=== PATIENT | female | born 1960 | race American Indian/Alaskan Native ===

== ENCOUNTER 2018-01-28 17:54 | Inpatient (IN) | payer OTHER ==
[2018-01-28] MEDS ORDERED: Rocuronium 10 mg/ml (5 ml) ONE (18:08)
[2018-01-28] MEDS ORDERED: Etomidate 20 mg/10ml Inj IV ONE (18:09)
[2018-01-28 18:31] LABS: VENOUS BLOOD GAS BASE EXCESS -15.7 mmol/L (0.0-2.0); VENOUS BLOOD GAS PO2 80 mm/Hg (30-55); VENOUS BLOOD PH 6.85 (7.32-7.43)
--- NOTE | 2018-01-28 18:44 | ED PDOC ---
Arrival/HPI - General Chief Complaint: Seizure Time Seen by Provider: 01/28/18 18:39 Historian: EMS - Critical Care Critical Care Minutes: 60 minutes - History of Present Illness Narrative History of Present Illness (Text): 01/28/18 18:39 A 57 year old female, whose past medical history includes LA, HTN, HLD, CHF, PE , anemia, perforated appendix, necrotizing fasciitis, lumbar herniated disc, tib /fib fracture of the left leg migraine headaches, seizures, opiate dependence, chronic pain, is brought into the emergency department via EMS s/p seizure. The decision to intubate was made in the emergency department due to patient becoming hypoxic and unable to handle her own secretions. HPI/ ROS limited due to acuity of patients condition. Time/Duration: Prior to Arrival Symptom Onset: Sudden Symptom Course: Unchanged Activities at Onset: Rest, Light Context: Home Past Medical History - Provider Review Nursing Documentation Reviewed: Yes - Infectious Disease Hx of Infectious Diseases: None - Reproductive Menopause: Yes - Cardiac Hx Cardiac Disorders: Yes (LA, DVT) Hx Cardiac Arrhythmia: Yes Hx Congestive Heart Failure: Yes Hx Hypertension: Yes - Pulmonary Hx Respiratory Disorders: Yes (Pulmonary embolism) Hx Pneumonia: Yes - Neurological HX Cerebrovascular Accident: Yes Hx Migraine: Yes - HEENT Hx HEENT Disorder: No - Renal Hx Renal Disorder: No - Endocrine/Metabolic Hx Endocrine Disorders: No - Hematological/Oncological Hx Blood Disorders: Yes (Reaction to blood transfusion) Hx Anemia: Yes - Integumentary Other/Comment: 2 brown skin discolorations to left ankle - Musculoskeletal/Rheumatological Hx Falls: No - Gastrointestinal Hx Gastrointestinal Disorders: Yes (Ruptured appendix, abdominal abcess, ischemic bowl with multiple resections) Hx Ileostomy: Yes Other/Comment: Necrotizing fascites - Genitourinary/Gynecological Hx Genitourinary Disorders: No - Psychiatric Hx Psychophysiologic Disorder: Yes (Opiate dependent) Hx Substance Use: No - Surgical History Hx Appendectomy: Yes Other/Comment: Illeostomy - Anesthesia Hx Anesthesia Reactions: No Hx Malignant Hyperthermia: No Family/Social History - Physician Review Nursing Documentation Reviewed: Yes Family/Social History: No Known Family HX Smoking Status: Never Smoked Hx Alcohol Use: No Hx Substance Use: No Allergies/Home Meds Allergies/Adverse Reactions: Allergies caffeine Adverse Reaction (Mild, Verified 05/17/16 08:45) DIZZINESS pt complains of palpitations after having caffeine Home Medications: Home Meds Medication Instructions Recorded Confirmed Aspirin [Ecotrin] 81 mg PO DAILY 01/28/18 01/28/18 Gemfibrozil 600 mg PO BID 01/28/18 01/28/18 Levetiracetam [Levetiracetam ER] 750 mg PO BID 01/28/18 01/28/18 MEROPENEM 500 MG in NS [Merrem IV 500 mg IV Q6 01/28/18 01/28/18 500 MG/NS 50 ML] Metoprolol Tartrate [Lopressor] 25 mg PO BID 01/28/18 01/28/18 Pantoprazole [Protonix] 40 mg PO DAILY 01/28/18 01/28/18 Rosuvastatin Calcium [Crestor] 20 mg DAILY 01/28/18 01/28/18 amLODIPine [Norvasc] 10 mg PO DAILY 01/28/18 01/28/18 Review of Systems - Physician Review All systems were reviewed & negative as marked: Yes - Review of Systems Systems not reviewed;Unavailable: Acuity of Condition Physical Exam Vital Signs Reviewed: Yes Vital Signs Temp Pulse Resp BP Pulse Ox 01/28/18 18:02 98.1 F 140 H 12 138/102 H 96 Temperature: Afebrile Blood Pressure: Hypertensive Pulse: Tachycardic Respiratory Rate: Normal Pain Distress: None Medical Decision Making ED Course and Treatment: 01/28/18 18:44 Impression: A 57 year old female brought into the emergency department via EMS for seizure. Plan: -- Head CT -- EKG -- Chest X-ray -- Amidate, Ativan, Diprivan, Zemuron, and IV Fluids -- Urinalysis -- Labs -- Reassess and disposition Prior Visits: Notes and results from previous visits were reviewed. Progress Notes: 01/28/18 19:22: Case discussed in detail with Dr. Thomas. 01/28/18 19:25 case discussed with neurology, dr. thomas, recommends keppra 1500mg load then 1000 mg bid PROCEDURE: INTUBATION Performed by the emergency provider Time: 18:19 Consent: Discussion of the risks, benefits, and alternatives to the procedure, along with informed consent was precluded by the urgency of the procedure and the patient condition. Timeout: A timeout to verify the correct patient, procedure, and site was performed. Indication: Airway Protection Pre-oxygenation: [id number] Medications: Etomidate and Rocuronium. See MAR for details. ETT Size: 7.0 Confirmation: Cords directly visualized as tube passed, good bilateral breath sounds, positive CO2 detector color change, tube fogging, adequate chest rise, improving pulse oximetry reading, improved skin color, and absence of gastric sounds. ETT Secured: The cuff was inflated and the tube was secured appropriately at a distance of 20 cm at the lip. Post-Procedure: There were no immediate complications. CXR Confirmation: Yes 01/28/18 22:17 01/28/18 23:21 patient was seen for recurrent seizures with known seizure hx. patient was intubated soon upon arrival. patient was admitted to the ICU under care of Dr. Rizvi, CT head pending and will follow up with the results. - Critical Care Critical Care Minutes: 60 minutes - Lab Interpretations Lab Results: 01/28/18 18:29 01/28/18 18:29 Lab Results 01/28/18 21:05: pCO2 35, pO2 193.0 H, HCO3 20.2 L, ABG pH 7.37, ABG Total CO2 21.3 L, ABG O2 Saturation 100.4 H, ABG O2 Content 17.4, ABG Base Excess -4.4 L, ABG Hemoglobin 12.3, ABG Carboxyhemoglobin 1.4, POC ABG HHb (Measured) -0.4 L, ABG Methemoglobin 1.0, ABG O2 Capacity 17.3, Hgb O2 Saturation 98.0, FiO2 60.0 01/28/18 18:29: Valproic Acid < 10 L 01/28/18 18:29: TSH 3rd Generation 1.88 01/28/18 18:29: PT 11.3, INR 0.99, APTT 48.3 H 01/28/18 18:29: Magnesium 2.1 01/28/18 18:29: Sodium 147, Chloride 105, Potassium 3.8, Carbon Dioxide 19 L, Anion Gap 26 H, BUN 13, Creatinine 0.9, Est GFR ( Amer) > 60, Est GFR ( Non-Af Amer) > 60, Random Glucose 240 H, Calcium 9.8, Total Bilirubin 0.3, AST 57 H, ALT < 6 L, Alkaline Phosphatase 116, Total Protein 8.1, Albumin 4.5, Globulin 3.6, Albumin/Globulin Ratio 1.3 01/28/18 18:29: WBC 14.6 H D, RBC 4.75, Hgb 13.6, Hct 41.9, MCV 88.2, MCH 28.6, MCHC 32.5, RDW 13.8, Plt Count 489 H, MPV 9.3, Gran % 34.0 L, Lymph % (Auto) 56.1 H, Hodgeman % (Auto) 6.6 H, Eos % (Auto) 2.4, Baso % (Auto) 0.9, Gran # 4.96, Lymph # (Auto) 8.2 H, Hodgeman # (Auto) 1.0 H, Eos # (Auto) 0.4, Baso # (Auto) 0.13 01/28/18 18:26: pO2 80 H, VBG pH 6.85 L*, VBG pCO2 116.0 H*, VBG HCO3 20.3 L, VBG Total CO2 23.9, VBG O2 Sat (Calc) 89.7 H, VBG Base Excess -15.7 L, VBG Potassium 3.7, Sodium 144.0, Chloride 105.0, Glucose 243 H, Lactate 9.4 H*, FiO2 21.0, Venous Blood Potassium 3.7 01/28/18 18:25: Urine Color Yellow, Urine Appearance Clear, Urine pH 6.5, Ur Specific [place] 1.025, Urine Protein 100 H, Urine Glucose (UA) Negative, Urine Ketones Negative, Urine Blood Negative, Urine Nitrate Negative, Urine Bilirubin Negative, Urine Urobilinogen 0.2, Ur Leukocyte Esterase Negative, Urine RBC 0 - 2, Urine WBC 5 - 10, Ur Epithelial Cells 3 - 4, Urine Bacteria Mod I have reviewed the lab results: Yes - RAD Interpretation Narrative RAD Interpretations (Text): 01/28/18 19:15: Chest X-ray read and interpreted by me shows no focal infiltrate. No pneumothorax. Tracheal tube is proximally 5 cm above the quique. 01/28/18 1838: sinus tachycardia at 111 bpm, nml qrs, rvh, nonspecific t wave abn Radiology Orders: 01/28/18 18:45 CHEST PORTABLE [RAD] Stat 01/28/18 19:19 HEAD W/O CONTRAST [CT] Stat - EKG Interpretation EKG Interpretation (Text): 01/28/18 19:30 ekg my read: 1838 sinus tach at 111 bpm, nml qrs, rvh, nonspecific t wave abn Interpreted by ED Physician: Yes Type: 12 lead EKG - Medication Orders Current Medication Orders: Sodium Chloride (Sodium Chloride 0.9%) 1,000 mls @ 150 mls/hr IV .Q6H40M SANDY Last Admin: 01/28/18 18:50 Dose: 150 mls/hr eMAR Start Stop Document 01/28/18 18:50 [facility] (Rec: 01/28/18 18:50 [facility] [id number]) Intravenous Solution Start Date 01/28/18 Start Time 18:50 Propofol (Diprivan) 1,000 mg in 100 mls @ 2.068 mls/hr IV .Q24H PRN; Protocol; 5 MCG/KG/MIN PRN Reason: TITRATE PER MD ORDER Levetiracetam (Keppra 500mg Ivpb) 500 mg in 100 mls @ 500 mls/hr IVPB Q12 SANDY Lorazepam (Ativan) 1 mg IVP Q5M PRN; Protocol PRN Reason: Seizure activity Discontinued Medications Etomidate (Amidate) 20 mg IVP STAT STA Stop: 01/28/18 18:46 Last Admin: 01/28/18 18:51 Dose: Propofol (Diprivan) 1,000 mg in 100 mls @ 2.068 mls/hr IV .Q24H PRN; Protocol; 5 MCG/KG/MIN PRN Reason: TITRATE PER MD ORDER Last Admin: 01/28/18 19:51 Dose: 2.068 mls/hr eMAR Start Stop Document 01/28/18 19:51 SS (Rec: 01/28/18 19:54 [id number] Intravenous Solution Start Date 01/28/18 Start Time 19:53 Contreras Agitation Sedation Document 01/28/18 19:51 SS (Rec: 01/28/18 19:54 SS [id number] Contreras Agitation Sedation Scale Contreras Agitation Sedation Scale Score -4 Deep Sedation: No response to voice,but movement or eye opening Levetiracetam 1,500 mg/ Sodium (Chloride) 115 mls @ 460 mls/hr IV ONCE ONE Stop: 01/28/18 19:39 Last Admin: 01/28/18 19:54 Dose: 460 mls/hr eMAR Start Stop Document 01/28/18 19:54 SS (Rec: 01/28/18 19:55 SS [facility] [id number]) Intravenous Solution Start Date 01/28/18 Start Time 19:55 End Date 01/28/18 End time 20:10 Total Infusion Time 15 Lorazepam (Ativan) 2 mg IVP ONCE ONE PRN Reason: Protocol Stop: 01/28/18 18:47 Last Admin: 01/28/18 18:51 Dose: Not Given Non-Admin Reason: Agitation Rocuronium Gaastra (Zemuron) 60 mg IVP ONCE ONE Stop: 01/28/18 18:47 Last Admin: 01/28/18 18:51 Dose: - Scribe Statement The provider has reviewed the documentation as recorded by the Aidaibe Adelaide Kaur Provider Scribe Attestation: All medical record entries made by the Scribe were at my direction and personally dictated by me. I have reviewed the chart and agree that the record accurately reflects my personal performance of the history, physical exam, medical decision making, and the department course for this patient. I have also personally directed, reviewed, and agree with the discharge instructions and disposition. Disposition/Present on Arrival - Present on Arrival Any Indicators Present on Arrival: No History of DVT/PE: No History of Uncontrolled Diabetes: No Urinary Catheter: No History of Decub. Ulcer: No History Surgical Site Infection Following: None - Disposition Have Diagnosis and Disposition been Completed?: Yes Diagnosis: Status epilepticus Disposition: HOSPITALIZED Disposition Time: 23:23 Patient Plan: Admission Condition: FAIR
[2018-01-28 18:45] LABS: ALB/GLOB RATIO 1.3 (1.1-1.8); ALBUMIN 4.5 g/dL (3.0-4.8); AST/SGOT 57 U/L (14-36); BLOOD UREA NITROGEN 13 mg/dL (7-21); CALCIUM 9.8 mg/dL (8.4-10.5); GFR NON-AFRICAN AMERICAN > 60
[2018-01-28] MEDS ORDERED: Etomidate 20 mg/10ml Inj IVP STA (18:45)
[2018-01-28] MEDS ORDERED: Rocuronium 10 mg/ml (5 ml) IVP ONE (18:46)
[2018-01-28] MEDS ORDERED: Propofol 10 mg/ml 1,000 MG/100 ML VIAL IV PRN ×2 (18:48→20:31)
[2018-01-28 18:50] LABS: ALT/SGPT < 6 U/L (7-56)
[2018-01-28] MEDS: Sodium Chloride 0.9% 1,000 ML IV SCH (18:50)
[2018-01-28 19:00] LABS: BASO # 0.13 K/mm3 (0.0-2.0); BASO % 0.9 % (0.0-3.0); EOS # 0.4 (0.0-0.7); EOS % 2.4 % (1.5-5.0); GRAN # 4.96 (1.4-6.5); HEMOGLOBIN 13.6 g/dL (12.0-16.0); LYMPH # 8.2 (1.2-3.4); LYMPH % 56.1 % (22.0-35.0); MEAN CELL VOLUME 88.2 fl (80.0-105.0); MEAN CORPUSCULAR HEMOGLOBIN 28.6 pg (25.0-35.0); MEAN CORPUSCULAR HGB CONC 32.5 g/dl (31.0-37.0); MEAN PLATELET VOLUME 9.3 fl (7.0-11.0); MONO % 6.6 % (1.0-6.0); RBC 4.75 10^6/uL (3.5-6.1); RED CELL DISTRIBUTION WIDTH 13.8 % (11.5-14.5); WHITE BLOOD COUNT 14.6 10^3/ul (4.5-11.0)
[2018-01-28] MEDS ORDERED: levETIRAcetam 1,000 MG in Sodium Chloride 0.9% 100 ML IV ONE (19:20)
[2018-01-28 19:23] LABS: PH,URINE 6.5 (4.7-8.0); URINE BILIRUBIN NEGATIVE (NEGATIVE); URINE BLOOD NEGATIVE (NEGATIVE); URINE GLUCOSE (UA) NEGATIVE (NEGATIVE); URINE LEUKOCYTE ESTERASE NEGATIVE Leu/uL (NEGATIVE); URINE PROTEIN 100 mg/dL (<30 mg/dL); URINE UROBILINOGEN 0.2 E.U./dL (<1 E.U./dL)
[2018-01-28 19:24] LABS: URINE APPEARANCE CLEAR (CLEAR); URINE COLOR YELLOW (YELLOW)
[2018-01-28 19:24] LABS: INR 0.99; PARTIAL THROMBOPLASTIN TIME 48.3 Seconds (25.1-36.5); PROTHROMBIN TIME 11.3 SECONDS (9.4-12.5)
[2018-01-28] MEDS ORDERED: levETIRAcetam 1,500 MG in Sodium Chloride 0.9% 100 ML IV ONE (19:25)
[2018-01-28 19:37] LABS: URINE BACTERIA MOD (NEG); URINE RBC 0 - 2 /hpf (0-2)
[2018-01-28] MEDS: Propofol 10 mg/ml 1,000 MG/100 ML VIAL IV PRN (19:51)
[2018-01-28 21:13] LABS: ARTERIAL BLOOD GAS HCO3 20.2 mmol/L (21-28); ARTERIAL BLOOD GAS HEMOGLOBIN 12.3 g/dL (11.7-17.4); ARTERIAL BLOOD GAS O2 CAPACITY 17.3 mL/dl (16-24); ARTERIAL BLOOD GAS O2 CONTENT 17.4 ML/dl (15-23); ARTERIAL BLOOD GAS O2 SAT 100.4 % (95-98); ARTERIAL BLOOD GAS PCO2 35 mm/Hg (35-45); ARTERIAL BLOOD GAS PH 7.37 (7.35-7.45); ARTERIAL BLOOD GAS TCO2 21.3 mmol.L (22-28)
[2018-01-28 22:50] LABS: VENOUS BLOOD GAS BASE EXCESS -0.7 mmol/L (0.0-2.0); VENOUS BLOOD GAS PO2 44 mm/Hg (30-55); VENOUS BLOOD PH 7.33 (7.32-7.43)
--- NOTE | 2018-01-28 23:07 | CP.PCM.HP ---
<Berhane Garrison - Last Filed: 01/29/18 00:00> History of Present Illness - History of Present Illness History of Present Illness: CC: Status epilepticus Pt is a 57 yo F with pmhx of SC, HTN, HLD, CHF, PE, anemia, seizures, chronic pain, is brought into the emergency department via EMS s/p seizure. At the ED she was given multiple doses of ativan and keppra, but then she began to become hypoxic so the decision was made to intubate the pt to protect her airway. Further pt hx was gathered by , who states that she has never had seizures before. He states that she recently had a hemorrhagic stroke in July of 2017 and was then taken [place] [facility] [place] a left temporal and parietal crainotomy was performed to relieve the swelling and pressure accumulating from the bleed. He states that this afternoon she was eating when all of a sudden she began to have seizures. She fell and was noted to have some foaming in the mouth that seemed to be mixed with blood, but no bladder or bowel incontinence was noted. He then called the ambulance which transported her to [facility] ED. Pt was sedated and intubated at the time of exam so 12 point ROS could not be done. PMHx: SC, HTN, HLD, CHF, PE, anemia, perforated appendix, necrotizing fasciitis , lumbar herniated disc, tib/fib fracture of the left leg migraine headaches, seizures, opiate dependence, chronic pain PSHx: Appendectomy, colostomy, crainotomy in 2018 Medications: Amlodipine 10 QD, Metoprolol 25mg BID, Gemfibrozil 600 BID, ASA 81 QD, protonix 40 QD, Levetiracetam 750 BID, Crestor 20 QD Allergies: Caffeine - Dizziness Family Hx: Unable to obtain due to pt status Present on Admission - Present on Admission Any Indicators Present on Admission: Yes History of DVT/PE: Yes Review of Systems - Review of Systems Systems not reviewed;Unavailable: Intubated Past Patient History - Infectious Disease Hx of Infectious Diseases: None - Past Medical History & Family History Past Medical History?: Yes - Past Social History Smoking Status: Never Smoked - CARDIAC Hx Cardiac Disorders: Yes (SC, DVT) Hx Cardia Arrhythmia: Yes Hx Congestive Heart Failure: Yes Hx Hypertension: Yes - PULMONARY Hx Respiratory Disorders: Yes (Pulmonary embolism) Hx Pneumonia: Yes - NEUROLOGICAL HX Cerebrovascular Accident: Yes Hx Migraine: Yes - HEENT Hx HEENT Problems: No - RENAL Hx Chronic Kidney Disease: No - ENDOCRINE/METABOLIC Hx Endocrine Disorders: No - HEMATOLOGICAL/ONCOLOGICAL Hx Blood Disorders: Yes (Reaction to blood transfusion) Hx Anemia: Yes - INTEGUMENTARY Other/Comment: 2 brown skin discolorations to left ankle - MUSCULOSKELETAL/RHEUMATOLOGICAL Hx Falls: No - GASTROINTESTINAL Hx Gastrointestinal Disorders: Yes (Ruptured appendix, abdominal abcess, ischemic bowl with multiple resections) Hx Ileostomy: Yes Other/Comment: Necrotizing fascites - GENITOURINARY/GYNECOLOGICAL Hx Genitourinary Disorders: No - PSYCHIATRIC Hx Psychophysiologic Disorder: Yes (Opiate dependent) Hx Substance Use: No - SURGICAL HISTORY Hx Appendectomy: Yes Other/Comment: Illeostomy - ANESTHESIA Hx Anesthesia Reactions: No Hx Malignant Hyperthermia: No Meds Allergies/Adverse Reactions: Allergies Allergy/AdvReac Type Severity Reaction Status Date / Time caffeine AdvReac Mild DIZZINESS Verified 05/17/16 08:45 Physical Exam - Constitutional Additional comments: Sedated and intubated, well developed, well nourished - Head Exam Additional comments: Left sided temporal and parietal crainiotomy noted to have soft tissue underneath, had a well healed scar from incision - Eye Exam Eye Exam: EOMI, PERRL. absent: Scleral icterus - ENT Exam Additional comments: Missing front teeth, oral mucosa was moist, no bleeding or sign of trauma to tongue - Respiratory Exam Respiratory Exam: Clear to Auscultation Bilateral. absent: Rales, Rhonchi, Wheezes, Stridor Additional comments: mechanical breath sounds - Cardiovascular Exam Cardiovascular Exam: REGULAR RHYTHM, +S1, +S2. absent: Diastolic murmur, Gallop , Rubs - GI/Abdominal Exam GI & Abdominal Exam: Soft. absent: Distended, Firm Additional comments: multiple scars from extensive GI surgical hx - Extremities Exam Extremities exam: Negative for: pedal edema - Neurological Exam Additional comments: Sedated, right sided weakness compared to left - Skin Skin Exam: Dry, Intact, Normal Color, Warm Additional comments: no areas of ecchymosis or rash Results - Vital Signs Recent Vital Signs: Last Vital Signs Temp 98.1 F 01/28/18 18:02 Pulse 140 H 01/28/18 18:02 Resp 12 01/28/18 18:02 BP 138/102 H 01/28/18 18:02 Pulse Ox 96 01/28/18 18:02 - Labs Result Diagrams: 01/28/18 18:29 01/28/18 18:29 Labs: Laboratory Results - last 24 hr 01/28/18 22:46 pO2 44 VBG pH 7.33 VBG pCO2 49.0 VBG HCO3 25.8 VBG Total CO2 27.3 VBG O2 Sat (Calc) 83.9 H VBG Base Excess -0.7 L VBG Potassium 3.0 L Sodium 141.0 Chloride 106.0 Glucose 99 Lactate 0.9 FiO2 21.0 Venous Blood Potassium 3.0 L Assessment & Plan - Assessment and Plan (Free Text) Assessment: Pt is a 57 yo F with pmhx of SC, HTN, HLD, CHF, PE, anemia, seizures, chronic pain, is brought into the emergency department via EMS s/p seizure, is now intubated due to status epilepticus. Plan: 1) Status epilepticus: - Pt was given Keppra and Ativan multiple times in ED but pt became hypoxic and was unable to protect her own airway, so the decision was made to intubate the pt to protect airway - Lactate 9.4 on admission, on repeat was noted to be 0.9 - f/u head CT - Continue Keppra - Ativan PRN seizure ppx - EEG - Neuro checks - Seizure precautions - Neurology consulted - f/u AM CXR - [place] [facility] [place] in [place], requesting possible transfer [place] [facility] 2) HTN: - Will continue home norvasc once pt regains ability to take retake PO - Continue to monitor for HTN 3) HLD: - Will continue home Crestor once pt regains ability to take PO 4) Hx of Anemia - Monitor H&H - Stable as of admission GI/DVT PPX: - Protonix 40 - SCDs Case discussed with Dr. Dmitri Garrison PGY1 - Date & Time Date: 01/29/18 Time: 00:13 <Charles Rizvi P - Last Filed: 01/29/18 02:24> Results - Vital Signs Recent Vital Signs: Last Vital Signs Temp 98.1 F 01/28/18 18:02 Pulse 140 H 01/28/18 18:02 Resp 12 01/28/18 18:02 BP 138/102 H 01/28/18 18:02 Pulse Ox 96 01/28/18 18:02 - Labs Result Diagrams: 01/28/18 18:29 01/28/18 18:29 Labs: Laboratory Results - last 24 hr 01/28/18 22:46 pO2 44 VBG pH 7.33 VBG pCO2 49.0 VBG HCO3 25.8 VBG Total CO2 27.3 VBG O2 Sat (Calc) 83.9 H VBG Base Excess -0.7 L VBG Potassium 3.0 L Sodium 141.0 Chloride 106.0 Glucose 99 Lactate 0.9 FiO2 21.0 Venous Blood Potassium 3.0 L Attending/Attestation - Attestation I have personally seen and examined this patient.: Yes I have fully participated in the care of the patient.: Yes I have reviewed all pertinent clinical information: Yes Notes (Text): Pt is a 57 yo F with pmhx of SC, HTN, HLD, CHF, PE, anemia, seizures, chronic pain, is brought into the emergency department via EMS s/p seizure, is now intubated due to status epilepticus. Craniotomy in jul this year for hemorrhagic CVA. At time of assessment patient had received ativan 2mg, Keppra 1500mg loading dose, etomidate and paralytic for intubation and was on diprivan 10mcg/kg/min, patient was having what appeared mobility which was purposeful in the right leg and right arm, b/l foot drop, both pupils reactive, atrophied right arm and right leg, multiple surgical scars on in the abdomen. Slight hyperdensity likely from scar vs any bleeding noticed in the surgical area on CT head. Plan Seizure status clinically resolved as evident from above clinical exam Intubated for airway protection severe CO2 retention likely form splinting of the chest with status, resultant resp and metabolic acidosis worsened by lactic acidosis, improved to normal on vent support. SCD for dvt prophylaxis due to CT head findings GI prophylaxis Keppra loading dose then IV, seizure and aspiration precautions, will discuss patient's baseline activity with the when available in the hospital. See orders for detail. 01/29/18 02:16
[2018-01-29 03:52] VITALS: BMI 24.3
[2018-01-29 07:09] LABS: BASO # 0.03 K/mm3 (0.0-2.0); BASO % 0.3 % (0.0-3.0); EOS # 0.1 (0.0-0.7); GRAN # 5.5 (1.4-6.5); GRAN % 59.5 % (50.0-68.0); HEMOGLOBIN 12.7 g/dL (12.0-16.0); LYMPH # 2.4 (1.2-3.4); LYMPH % 25.8 % (22.0-35.0); MEAN CELL VOLUME 83.8 fl (80.0-105.0); MEAN CORPUSCULAR HEMOGLOBIN 28.2 pg (25.0-35.0); MEAN CORPUSCULAR HGB CONC 33.6 g/dl (31.0-37.0); MEAN PLATELET VOLUME 8.7 fl (7.0-11.0); MONO # 1.2 (0.1-0.6); MONO % 13.4 % (1.0-6.0); RBC 4.51 10^6/uL (3.5-6.1); RED CELL DISTRIBUTION WIDTH 13.9 % (11.5-14.5); WHITE BLOOD COUNT 9.3 10^3/ul (4.5-11.0)
[2018-01-29 07:26] LABS: ALB/GLOB RATIO 1.2 (1.1-1.8); ALBUMIN 3.8 g/dL (3.0-4.8); ALT/SGPT 26 U/L (7-56); AST/SGOT 35 U/L (14-36); BLOOD UREA NITROGEN 12 mg/dL (7-21); CALCIUM 9.2 mg/dL (8.4-10.5); GFR NON-AFRICAN AMERICAN > 60
--- NOTE | 2018-01-29 08:01 | RAD ---
Date of service: 01/29/2018 HISTORY: intubated COMPARISON: Portable chest 01/28/2018. FINDINGS: Endotracheal tube terminates 5.0 cm above the quique with left PICC unchanged in position. LUNGS: No active pulmonary disease. PLEURA: No significant pleural effusion identified, no pneumothorax apparent. CARDIOVASCULAR: Normal. OSSEOUS STRUCTURES: No significant abnormalities. VISUALIZED UPPER ABDOMEN: Normal. OTHER FINDINGS: None. IMPRESSION: No interval acute cardiopulmonary disease.
--- NOTE | 2018-01-29 08:31 | CT ---
Date of service: 01/28/2018 PROCEDURE: CT HEAD WITHOUT CONTRAST. HISTORY: status epilepticus COMPARISON: None available. TECHNIQUE: Axial computed tomography images were obtained through the head/brain without intravenous contrast. Radiation dose: Total exam DLP = 924 mGy-cm. This CT exam was performed using one or more of the following dose reduction techniques: Automated exposure control, adjustment of the mA and/or kV according to patient size, and/or use of iterative reconstruction technique. FINDINGS: HEMORRHAGE: No intracranial hemorrhage. BRAIN: No mass effect or edema. There has been an extensive left-sided craniotomy with removal of bone. There is encephalomalacia in the left basal ganglia and left lateral temporal lobe. There is dilatation of the left lateral ventricles. No acute findings VENTRICLES: Unremarkable. No hydrocephalus. CALVARIUM: Unremarkable. PARANASAL SINUSES: Unremarkable as visualized. No significant inflammatory changes. MASTOID AIR CELLS: Unremarkable as visualized. No inflammatory changes. OTHER FINDINGS: None. IMPRESSION: There has been an extensive left-sided craniotomy with removal of bone. There is encephalomalacia in the left basal ganglia and left lateral temporal lobe. There is dilatation of the left lateral ventricles. No acute findings
[2018-01-29] MEDS: Propofol 10 mg/ml 1,000 MG/100 ML VIAL IV PRN (08:39)
[2018-01-29] MEDS: Sodium Chloride 0.9% 1,000 ML IV SCH ×3 (08:41→21:44)
--- NOTE | 2018-01-29 08:53 | CP.PCM.CON ---
<Brook Garcia - Last Filed: 01/29/18 14:28> History of Present Illness - History of Present Illness History of Present Illness: PGY-1 Brook Garcia D.O. Neurology consult note for Dr. Thomas's service: Family is not present at the time of evaluation and patient is sedated, thus, HPI and history is obtained from medical records. 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 reports this is a new onset seizure; however, patient is on Keppra 750 mg PO bid at home, which is a therapeutic dose. Patient 's reported to ED that patient was eating and then started convulsing and foaming at the mouth. He denies bowel or bladder incontinence or tongue trauma. The patient was given Ativan and Keppra in the ED without resolution of seizure. She was unable to protect her airway, and, thus, she was sedated and intubated. Patient is currently in the ICU on a propofol drip and intubated. She is able to open her eyes and raise her left arm on command. She is responsive to painful stimuli. Patient was re-examined in the afternoon after she was successfully extubated. She is sitting up in bed, alert. She is able to move her LUE on command. She is tracking with her eyes. She does not speak. PMH: Hemorrhagic CVA 07/2017- s/p L temporal and parietal [place] [facility] [place] H/o PE, DVT CHF CA HTN HLD H/o ischemic bowel with several abdominal surgeries and ileostomy Recurrent UTIs Chronic pain Opioid dependence Migraines H/o blood transfusion rxn Meds: Norvasc 10 mg PO daily Metoprolol 25 mg PO BID ASA 81 mg PO daily Keppra 750 mg PO BID Crestor 20 mg PO daily Gemfibrozil 600 mg PO BID All: ?caffeine- dizziness FH: unknown SH: denies tobacco use rest unknown PMD: unknown Review of Systems - Review of Systems Systems not reviewed;Unavailable: Altered Mental Status (aphasic), Intubated Past Patient History - Infectious Disease Hx of Infectious Diseases: None - Tetanus Immunizations Tetanus Immunization: Unknown - Past Medical History & Family History Past Medical History?: Yes Pertinent Family History: unknown - Past Social History Smoking Status: Never Smoked Chewing Tobacco Use: No Cigar Use: No - CARDIAC Hx Cardiac Disorders: Yes Hx Cardia Arrhythmia: Yes Hx Congestive Heart Failure: Yes Hx Hypertension: Yes - PULMONARY Hx Respiratory Disorders: Yes (Pulmonary embolism) Hx Chronic Obstructive Pulmonary Disease (COPD): Yes Hx Pneumonia: Yes Other/Comment: IS INTUBATED - NEUROLOGICAL HX Cerebrovascular Accident: Yes Hx Migraine: Yes Hx Seizures: Yes - HEENT Hx HEENT Problems: No Hx Epistaxis: Yes - RENAL Hx Chronic Kidney Disease: No - ENDOCRINE/METABOLIC Hx Endocrine Disorders: No - HEMATOLOGICAL/ONCOLOGICAL Hx Blood Disorders: No Hx Anemia: Yes - INTEGUMENTARY Hx Dermatological Problems: No Other/Comment: 2 brown skin discolorations to left ankle - MUSCULOSKELETAL/RHEUMATOLOGICAL Hx Musculoskeletal Disorders: No Hx Falls: No - GASTROINTESTINAL Hx Gastrointestinal Disorders: No Hx Ileostomy: Yes Other/Comment: Necrotizing fascites - GENITOURINARY/GYNECOLOGICAL Hx Genitourinary Disorders: No Hx Urinary Tract Infection: No - PSYCHIATRIC Hx Psychophysiologic Disorder: Yes (Opiate dependent) Hx Substance Use: No - SURGICAL HISTORY Hx Appendectomy: Yes Other/Comment: Illeostomy - ANESTHESIA Hx Anesthesia Reactions: No Hx Malignant Hyperthermia: No Meds Allergies/Adverse Reactions: Allergies Allergy/AdvReac Type Severity Reaction Status Date / Time caffeine AdvReac Mild DIZZINESS Verified 05/17/16 08:45 - Medications Medications: Current Medications Sodium Chloride (Sodium Chloride 0.9%) 1,000 mls @ 150 mls/hr IV .Q6H40M [facility] Last Admin: 01/29/18 08:41 Dose: 150 mls/hr Propofol (Diprivan) 1,000 mg in 100 mls @ 5.552 mls/hr IV .Q18H1M PRN; Protocol ; 15 MCG/KG/MIN PRN Reason: TITRATE PER MD ORDER Last Admin: 01/29/18 08:39 Dose: 15 mcg/kg/min, 5.552 mls/hr Levetiracetam (Keppra 500mg Ivpb) 500 mg in 100 mls @ 750 mls/hr IVPB Q12 SANDY Lorazepam (Ativan) 1 mg IVP Q5M PRN; Protocol PRN Reason: Seizure activity Pantoprazole Sodium (Protonix Inj) 40 mg IVP DAILY SANDY Physical Exam - Constitutional Appears: No Acute Distress - Head Exam Additional comments: soft tissue L temporal-parietal area where skull removed, no open lesions - Eye Exam Eye Exam: EOMI, Normal appearance, PERRL. absent: Scleral icterus - ENT Exam ENT Exam: Mucous Membranes Moist Additional comments: endotracheal tube in place in AM normal inspection in PM - Neck Exam Neck exam: Positive for: Normal Inspection - Respiratory Exam Respiratory Exam: Clear to Auscultation Bilateral, NORMAL BREATHING PATTERN - Cardiovascular Exam Cardiovascular Exam: REGULAR RHYTHM, +S1, +S2 - GI/Abdominal Exam GI & Abdominal Exam: Soft - Rectal Exam Rectal Exam: Deferred - Extremities Exam Extremities exam: Positive for: normal capillary refill, normal inspection, pedal pulses present. Negative for: pedal edema - Neurological Exam Neurological exam: Reflexes Normal Additional comments: patient sedated on propofol drip opens eye on command and to painful stimuli raises RUE on command does not spontaneously move LUE or b/l LEs - Psychiatric Exam Additional comments: does not appear to be agitated - Skin Skin Exam: Dry, Intact, Normal Color, Warm Results - Vital Signs Recent Vital Signs: Last Vital Signs Temp 98.9 F 01/29/18 02:25 Pulse 88 01/29/18 08:30 Resp 18 01/29/18 07:05 BP 111/80 01/29/18 08:30 Pulse Ox 100 01/29/18 08:30 - Labs Result Diagrams: 01/29/18 06:00 01/29/18 06:00 Labs: Laboratory Results - last 24 hr 01/28/18 01/29/18 01/29/18 22:46 06:00 06:00 WBC 9.3 D RBC 4.51 Hgb 12.7 Hct 37.8 MCV 83.8 D MCH 28.2 MCHC 33.6 RDW 13.9 Plt Count 386 MPV 8.7 Gran % 59.5 Lymph % (Auto) 25.8 Valley % (Auto) 13.4 H Eos % (Auto) 1.0 L Baso % (Auto) 0.3 Gran # 5.50 Lymph # (Auto) 2.4 Valley # (Auto) 1.2 H Eos # (Auto) 0.1 Baso # (Auto) 0.03 pO2 44 VBG pH 7.33 VBG pCO2 49.0 VBG HCO3 25.8 VBG Total CO2 27.3 VBG O2 Sat (Calc) 83.9 H VBG Base Excess -0.7 L VBG Potassium 3.0 L Sodium 141.0 142 Chloride 106.0 106 Glucose 99 Lactate 0.9 FiO2 21.0 Potassium 3.4 L Carbon Dioxide 23 Anion Gap 17 BUN 12 Creatinine 0.7 Est GFR ( Amer) > 60 Est GFR (Non-Af Amer) > 60 Random Glucose 97 Calcium 9.2 Phosphorus 3.0 Magnesium 1.8 Total Bilirubin 0.4 AST 35 ALT 26 Alkaline Phosphatase 108 Total Protein 6.9 Albumin 3.8 Globulin 3.1 Albumin/Globulin Ratio 1.2 Venous Blood Potassium 3.0 L - EKG Data EKG Interpreted by: ER Physician EKG shows normal: Sinus rhythm Rate: Tachycardia - Impressions Impression: sinus tachycardia (HR 111) Assessment & Plan - Assessment and Plan (Free Text) Assessment: Patient is a 57 yo female with an extensive past medical history who presented with status epilepticus. Ativan and Keppra failed to stop seizure before patient had to be intubated to protect her airway. Patient is currently being managed in the ICU. She was successful extubated and off propofol <24 hrs later. She is on standing Keppra and Ativan as needed. Of note, patient had a craniotomy after a hemorrhagic CVA in Jul 2017. Plan: Status epilepticus, resolved- pt on Keppra at home - CT head: no acute findings - LA 9.4->0.9; WBC 14.6->9.3 - Seizure precautions - Increase Keppra to 1000 mg PO BID - Keppra level pending - Continue Ativan prn - Replete K, Mg as needed - f/u EEG- final report not necessary to downgrade pt status or pertinent to management at this time - PT/OT/ST H/o hemorrhagic CVA s/p L temporal-parietal craniotomy - CT head: There has been an extensive left-sided craniotomy with removal of bone. There is encephalomalacia in the left basal ganglia and left lateral temporal lobe. There is dilatation of the left lateral ventricles. - Utilize helmet when pt at risk of compressing/injuring head - Primary team is obtaining records [place] [facility] [place]N, chronic- SBP 90s-120s - Management per primary team - Patient's home meds held Case discussed with attending, Dr. Thomas. <Dayne Thomas - Last Filed: 01/29/18 17:23> Meds - Medications Medications: Current Medications Sodium Chloride (Sodium Chloride 0.9%) 1,000 mls @ 150 mls/hr IV .Q6H40M [facility] Last Admin: 01/29/18 16:02 Dose: 150 mls/hr Propofol (Diprivan) 1,000 mg in 100 mls @ 5.552 mls/hr IV .Q18H1M PRN; Protocol ; 15 MCG/KG/MIN PRN Reason: TITRATE PER MD ORDER Last Titration: 01/29/18 11:07 Dose: 0 mcg/kg/min, 0 mls/hr Levetiracetam 1,000 mg/ Sodium (Chloride) 110 mls @ 460 mls/hr IV Q12 SANDY Lorazepam (Ativan) 1 mg IVP Q5M PRN; Protocol PRN Reason: Seizure activity Pantoprazole Sodium (Protonix Inj) [address] [facility] Last Admin: 01/29/18 09:42 Dose: 40 mg Results - Vital Signs Recent Vital Signs: Last Vital Signs Temp 98.9 F 01/29/18 02:25 Pulse 108 H 01/29/18 17:09 Resp 14 01/29/18 17:09 BP 166/103 H 01/29/18 17:10 Pulse Ox 100 01/29/18 17:09 - Labs Result Diagrams: 01/29/18 06:00 01/29/18 06:00 Labs: Laboratory Results - last 24 hr 01/28/18 01/29/18 01/29/18 22:46 06:00 06:00 WBC 9.3 D RBC 4.51 Hgb 12.7 Hct 37.8 MCV 83.8 D MCH 28.2 MCHC 33.6 RDW 13.9 Plt Count 386 MPV 8.7 Gran % 59.5 Lymph % (Auto) 25.8 Valley % (Auto) 13.4 H Eos % (Auto) 1.0 L Baso % (Auto) 0.3 Gran # 5.50 Lymph # (Auto) 2.4 [place] # (Auto) 1.2 H Eos # (Auto) 0.1 Baso # (Auto) 0.03 pO2 44 VBG pH 7.33 VBG pCO2 49.0 VBG HCO3 25.8 VBG Total CO2 27.3 VBG O2 Sat (Calc) 83.9 H VBG Base Excess -0.7 L VBG Potassium 3.0 L Sodium 141.0 142 Chloride 106.0 106 Glucose 99 Lactate 0.9 FiO2 21.0 Potassium 3.4 L Carbon Dioxide 23 Anion Gap 17 BUN 12 Creatinine 0.7 Est GFR ( Amer) > 60 Est GFR (Non-Af Amer) > 60 Random Glucose 97 Calcium 9.2 Phosphorus 3.0 Magnesium 1.8 Total Bilirubin 0.4 AST 35 ALT 26 Alkaline Phosphatase 108 Total Protein 6.9 Albumin 3.8 Globulin 3.1 Albumin/Globulin Ratio 1.2 Venous Blood Potassium 3.0 L Attending/Attestation - Attestation I have personally seen and examined this patient.: Yes I have fully participated in the care of the patient.: Yes I have reviewed all pertinent clinical information: Yes Notes (Text): 01/29/18 17:22 I saw and examined Mrs. Myrick in the ICU along with the resident and noted that she is aphasic, has right side chronic hemiplegia with contractures. She was awake, alert, and followed simple commands. She was not having any seizures. I agree that the patient should be maintained on Keppra 1000 mg Q12.
--- NOTE | 2018-01-29 09:06 | CARD ---
APPROVED REPORT Date of service: 01/28/2018 EKG Measurement Heart [id number] <Conclusion> Sinus tachycardia RAD Right ventricular hypertrophy Nonspecific ST and T wave abnormality No change except the rate is faster
--- NOTE | 2018-01-29 09:32 | RAD ---
Date of service: 01/28/2018 HISTORY: tube placement COMPARISON: 05/16/2016 FINDINGS: LUNGS: No active pulmonary disease. PLEURA: No significant pleural effusion identified, no pneumothorax apparent. CARDIOVASCULAR: Normal. OSSEOUS STRUCTURES: No significant abnormalities. VISUALIZED UPPER ABDOMEN: Normal. OTHER FINDINGS: Left-sided PICC line terminates in the SVC IMPRESSION: The endotracheal tube is in satisfactory position.
[2018-01-29] MEDS ORDERED: levETIRAcetam 500mg IVPB 500 MG/100 ML BAG IVPB SCH ×2 (10:00)
[2018-01-29] MEDS ORDERED: levETIRAcetam 1,000 MG in Sodium Chloride 0.9% 100 ML IV SCH (10:30)
[2018-01-29] MEDS ORDERED: levETIRAcetam 500 MG in Sodium Chloride 0.9% 100 ML IV ONE (12:07)
[2018-01-29] MEDS ORDERED: levETIRAcetam 500mg IVPB 500 MG/100 ML BAG IVPB ONE (12:30)
--- NOTE | 2018-01-29 13:33 | CP.CCUPN ---
<Gordon Park - Last Filed: 01/29/18 15:14> CCU Subjective - Physician Review Subjective (Free Text): 01/29/18 12:48 Patient was seen and examined at bedside this AM in ICU. No acute events overnight. Patient sedated and intubated on evaluation 12 system ROS unobtainable at this time. Critical Care Time Spent (in minutes): 60 CCU Objective - Vital Signs / Intake & Output Intake and Output (Last 8hrs): Intake & Output 01/28/18 01/29/18 01/29/18 22:59 06:59 14:59 Intake Total 78 95 Output Total 1000 Balance -922 95 Weight 146 lb Intake: IV 78 95 Left Antecubital 0 Left Upper arm 0 Right Hand 50 Oral 0 Output: Urine 1000 Urethral (Peterson) 1000 Other: Voiding Method Indwelling Catheter - Physical Exam Physical Exam Limitations: Positive for: Other (sedated) Head: Positive for: Other (L skull soft to palpation; no acute trauma noted) Pupils: Positive for: Pinpoint Conjunctiva: Positive for: Normal. Negative for: Icteric Mouth: Positive for: Other (intubated) Respiratory/Chest: Positive for: Clear to Auscultation, Good Air Exchange. Negative for: Respiratory Distress Cardiovascular: Positive for: Regular Rate and Rhythm, Normal S1, S2. Negative for: Murmurs Abdomen: Positive for: Normal Bowel Sounds. Negative for: Tenderness, Distention, Peritoneal Signs Upper Extremity: Positive for: Normal Inspection, NORMAL PULSES Lower Extremity: Positive for: Normal Inspection, NORMAL PULSES Neurological: Positive for: Other (RLE Babinski equivocal; LLE Babinski intact - Normal ) Skin: Positive for: Warm, Dry Psychiatric: Positive for: Other (Sedated) - Medications Active Medications: Active Medications Generic Name Dose Route Start Last Admin Trade Name Freq PRN Reason Stop Dose Admin Sodium Chloride 1,000 mls @ 150 mls/hr 01/28/18 19:00 01/29/18 08:41 Sodium Chloride 0.9% IV 150 mls/hr .Q6H40M SANDY Administration Propofol 1,000 mg in 100 mls @ 5.552 mls/hr 01/29/18 00:59 01/29/18 11:07 Diprivan IV 0 mcg/kg/min .Q18H1M PRN 0 mls/hr TITRATE PER MD ORDER Titration Protocol 15 MCG/KG/MIN Potassium Chloride 10 meq in 100 mls @ 50 mls/hr 01/29/18 09:15 01/29/18 09: 43 Potassium Chloride 10 Meq/100 Ml IVPB 01/29/18 13:14 50 mls/hr Q2H SANDY Administration Levetiracetam 1,000 mg/ Sodium 110 mls @ 460 mls/hr 01/29/18 22:00 Chloride IV Q12 SANDY Lorazepam 1 mg 01/29/18 00:38 Ativan IVP Q5M PRN Seizure activity Protocol Pantoprazole Sodium 40 mg 01/29/18 10:00 01/29/18 09:42 Protonix Inj IVP 40 mg DAILY SANDY Administration - Patient Studies Lab Studies: Lab Studies 01/29/18 01/29/18 01/28/18 Range/Units 06:00 06:00 22:46 WBC 9.3 D (4.5-11.0) 10^3/ul RBC 4.51 (3.5-6.1) 10^6/uL Hgb 12.7 (12.0-16.0) g/dL Hct 37.8 (36.0-48.0) % MCV 83.8 D (80.0-105.0) fl MCH 28.2 (25.0-35.0) pg MCHC 33.6 (31.0-37.0) g/dl RDW 13.9 (11.5-14.5) % Plt Count 386 (120.0-450.0) 10^3/uL MPV 8.7 (7.0-11.0) fl Gran % 59.5 (50.0-68.0) % Lymph % (Auto) 25.8 (22.0-35.0) % [place] % (Auto) 13.4 H (1.0-6.0) % Eos % (Auto) 1.0 L (1.5-5.0) % Baso % (Auto) 0.3 (0.0-3.0) % Gran # 5.50 (1.4-6.5) Lymph # (Auto) 2.4 (1.2-3.4) [place] # (Auto) 1.2 H (0.1-0.6) Eos # (Auto) 0.1 (0.0-0.7) Baso # (Auto) 0.03 (0.0-2.0) K/mm3 pO2 44 (30-55) mm/Hg VBG pH 7.33 (7.32-7.43) VBG pCO2 49.0 (40-60) VBG HCO3 25.8 (21-28) mmol/l VBG Total CO2 27.3 (22-28) mmol.L VBG O2 Sat (Calc) 83.9 H (40-65) % VBG Base Excess -0.7 L (0.0-2.0) mmol/L VBG Potassium 3.0 L (3.6-5.2) mmol/L Sodium 142 141.0 (132-148) mmol/L Chloride 106 106.0 (98-107) mmol/L Glucose 99 (65-105) mg/dl Lactate 0.9 (0.7-2.1) mmol/L FiO2 21.0 % Potassium 3.4 L (3.6-5.0) mmol/L Carbon Dioxide 23 (21-33) mmol/L Anion Gap 17 (10-20) BUN 12 (7-21) mg/dL Creatinine 0.7 (0.7-1.2) mg/dl Est GFR ( Amer) > 60 Est GFR (Non-Af Amer) > 60 Random Glucose 97 (70-110) mg/dL Calcium 9.2 (8.4-10.5) mg/dL Phosphorus 3.0 (2.5-4.5) mg/dL Magnesium 1.8 (1.7-2.2) mg/dL Total Bilirubin 0.4 (0.2-1.3) mg/dL AST 35 (14-36) U/L ALT 26 (7-56) U/L Alkaline Phosphatase 108 (38-126) U/L Total Protein 6.9 (5.8-8.3) g/dL Albumin 3.8 (3.0-4.8) g/dL Globulin 3.1 gm/dL Albumin/Globulin Ratio 1.2 (1.1-1.8) Venous Blood Potassium 3.0 L (3.6-5.2) mmol/L Laboratory Results - last 24 hr 01/28/18 01/29/18 01/29/18 22:46 06:00 06:00 WBC 9.3 D RBC 4.51 Hgb 12.7 Hct 37.8 MCV 83.8 D MCH 28.2 MCHC 33.6 RDW 13.9 Plt Count 386 MPV 8.7 Gran % 59.5 Lymph % (Auto) 25.8 [place] % (Auto) 13.4 H Eos % (Auto) 1.0 L Baso % (Auto) 0.3 Gran # 5.50 Lymph # (Auto) 2.4 [place] # (Auto) 1.2 H Eos # (Auto) 0.1 Baso # (Auto) 0.03 pO2 44 VBG pH 7.33 VBG pCO2 49.0 VBG HCO3 25.8 VBG Total CO2 27.3 VBG O2 Sat (Calc) 83.9 H VBG Base Excess -0.7 L VBG Potassium 3.0 L Sodium 141.0 142 Chloride 106.0 106 Glucose 99 Lactate 0.9 FiO2 21.0 Potassium 3.4 L Carbon Dioxide 23 Anion Gap 17 BUN 12 Creatinine 0.7 Est GFR ( Amer) > 60 Est GFR (Non-Af Amer) > 60 Random Glucose 97 Calcium 9.2 Phosphorus 3.0 Magnesium 1.8 Total Bilirubin 0.4 AST 35 ALT 26 Alkaline Phosphatase 108 Total Protein 6.9 Albumin 3.8 Globulin 3.1 Albumin/Globulin Ratio 1.2 Venous Blood Potassium 3.0 L Review of Systems - Review of Systems Systems not reviewed;Unavailable: Intubated Critical Care Progress Note - Ventilator Checklist Head of Bed 30 Degrees: Yes - Vent Settings TIDAL VOLUME:: 410 RESP RATE:: 14 FIO2:: 40 PEEP:: 5 Assessment/Plan - Assessment and Plan (Free Text) Assessment: 57F w/ extensive PMH; most significant for Hemorrhagic stroke; presented to [facility] ED on 01/28 in status epilepticus. Possible Breakthroughseizure vs New Onset. Neuro: -Loaded w/ 1500mg Keppra + 2mg Ativan in ED w/ no effect -Patient underwent rapid sequence intubation due to not protecting airway -Propofol drip started in ED; DC'd this afternoon -EEG post propofol showed no seizure activity; Official Report Pending -Extubation to follow -Continue monitoring for seizure activity -Continue w/ Keppra 1000 BID -Ativan 1mg Q5min PRN for active seizure -Neurology Following Cardiovascular: -Tachycardic in ED -Maintain MAP> 65 -Patient hemodynamically stable -H/H stable -Hx HTN - Can resume home BP Rx once patient has stabilized Pulmonary: -Patient extubated -Maintaining sat well on 2.5L NC -Keep HOB elevation >35 degreess, aspiration precuations GI: -NPO at this time -Swallow Eval once patient is no longer sedated /Renal: -Maintain IVF -Maintain peterson -Monitor IO ID: -Afebrile -WBC count normalized today to 9.3 from 14.6 -UCx pending Endo: -TSH wnl -Hyperglycemia this AM; Continue to monitor fasting BG DVT PPX: SCD GI PPX: Protonix IVP Patient was seen, discussed, and examined w/ attending physician Dr. Raffi Park DO PGY1 - Internal Medicine Telegraphic Instrument Supervisor - Date & Time Date: 01/29/18 Time: 15:23 <Hector Nugent - Last Filed: 01/29/18 17:05> CCU Objective - Vital Signs / Intake & Output Intake and Output (Last 8hrs): Intake & Output 01/29/18 01/29/18 01/29/18 06:59 14:59 22:59 Intake Total 78 95 Output Total 1000 Balance -922 95 Weight 146 lb Intake: IV 78 95 Left Antecubital 0 Left Upper arm 0 Right Hand 50 Oral 0 Output: Urine 1000 Urethral (Peterson) 1000 Other: Voiding Method Indwelling Catheter - Medications Active Medications: Active Medications Generic Name Dose Route Start Last Admin Trade Name Freq PRN Reason Stop Dose Admin Sodium Chloride 1,000 mls @ 150 mls/hr 01/28/18 19:00 01/29/18 08:41 Sodium Chloride 0.9% IV 150 mls/hr .Q6H40M SANDY Administration Propofol 1,000 mg in 100 mls @ 5.552 mls/hr 01/29/18 00:59 01/29/18 11:07 Diprivan IV 0 mcg/kg/min .Q18H1M PRN 0 mls/hr TITRATE PER MD ORDER Titration Protocol 15 MCG/KG/MIN Levetiracetam 1,000 mg/ Sodium 110 mls @ 460 mls/hr 01/29/18 22:00 Chloride IV Q12 SANDY Lorazepam 1 mg 01/29/18 00:38 Ativan IVP Q5M PRN Seizure activity Protocol Pantoprazole Sodium 40 mg 01/29/18 10:00 01/29/18 09:42 Protonix Inj IVP 40 mg DAILY SANDY Administration - Patient Studies Lab Studies: Lab Studies 01/29/18 01/29/18 01/28/18 Range/Units 06:00 06:00 22:46 WBC 9.3 D (4.5-11.0) 10^3/ul RBC 4.51 (3.5-6.1) 10^6/uL Hgb 12.7 (12.0-16.0) g/dL Hct 37.8 (36.0-48.0) % MCV 83.8 D (80.0-105.0) fl MCH 28.2 (25.0-35.0) pg MCHC 33.6 (31.0-37.0) g/dl RDW 13.9 (11.5-14.5) % Plt Count 386 (120.0-450.0) 10^3/uL MPV 8.7 (7.0-11.0) fl Gran % 59.5 (50.0-68.0) % Lymph % (Auto) 25.8 (22.0-35.0) % [place] % (Auto) 13.4 H (1.0-6.0) % Eos % (Auto) 1.0 L (1.5-5.0) % Baso % (Auto) 0.3 (0.0-3.0) % Gran # 5.50 (1.4-6.5) Lymph # (Auto) 2.4 (1.2-3.4) [place] # (Auto) 1.2 H (0.1-0.6) Eos # (Auto) 0.1 (0.0-0.7) Baso # (Auto) 0.03 (0.0-2.0) K/mm3 pO2 44 (30-55) mm/Hg VBG pH 7.33 (7.32-7.43) VBG pCO2 49.0 (40-60) VBG HCO3 25.8 (21-28) mmol/l VBG Total CO2 27.3 (22-28) mmol.L VBG O2 Sat (Calc) 83.9 H (40-65) % VBG Base Excess -0.7 L (0.0-2.0) mmol/L VBG Potassium 3.0 L (3.6-5.2) mmol/L Sodium 142 141.0 (132-148) mmol/L Chloride 106 106.0 (98-107) mmol/L Glucose 99 (65-105) mg/dl Lactate 0.9 (0.7-2.1) mmol/L FiO2 21.0 % Potassium 3.4 L (3.6-5.0) mmol/L Carbon Dioxide 23 (21-33) mmol/L Anion Gap 17 (10-20) BUN 12 (7-21) mg/dL Creatinine 0.7 (0.7-1.2) mg/dl Est GFR ( Amer) > 60 Est GFR (Non-Af Amer) > 60 Random Glucose 97 (70-110) mg/dL Calcium 9.2 (8.4-10.5) mg/dL Phosphorus 3.0 (2.5-4.5) mg/dL Magnesium 1.8 (1.7-2.2) mg/dL Total Bilirubin 0.4 (0.2-1.3) mg/dL AST 35 (14-36) U/L ALT 26 (7-56) U/L Alkaline Phosphatase 108 (38-126) U/L Total Protein 6.9 (5.8-8.3) g/dL Albumin 3.8 (3.0-4.8) g/dL Globulin 3.1 gm/dL Albumin/Globulin Ratio 1.2 (1.1-1.8) Venous Blood Potassium 3.0 L (3.6-5.2) mmol/L Laboratory Results - last 24 hr 01/28/18 01/29/18 01/29/18 22:46 06:00 06:00 WBC 9.3 D RBC 4.51 Hgb 12.7 Hct 37.8 MCV 83.8 D MCH 28.2 MCHC 33.6 RDW 13.9 Plt Count 386 MPV 8.7 Gran % 59.5 Lymph % (Auto) 25.8 [place] % (Auto) 13.4 H Eos % (Auto) 1.0 L Baso % (Auto) 0.3 Gran # 5.50 Lymph # (Auto) 2.4 [place] # (Auto) 1.2 H Eos # (Auto) 0.1 Baso # (Auto) 0.03 pO2 44 VBG pH 7.33 VBG pCO2 49.0 VBG HCO3 25.8 VBG Total CO2 27.3 VBG O2 Sat (Calc) 83.9 H VBG Base Excess -0.7 L VBG Potassium 3.0 L Sodium 141.0 142 Chloride 106.0 106 Glucose 99 Lactate 0.9 FiO2 21.0 Potassium 3.4 L Carbon Dioxide 23 Anion Gap 17 BUN 12 Creatinine 0.7 Est GFR ( Amer) > 60 Est GFR (Non-Af Amer) > 60 Random Glucose 97 Calcium 9.2 Phosphorus 3.0 Magnesium 1.8 Total Bilirubin 0.4 AST 35 ALT 26 Alkaline Phosphatase 108 Total Protein 6.9 Albumin 3.8 Globulin 3.1 Albumin/Globulin Ratio 1.2 Venous Blood Potassium 3.0 L Attending/Attestation - Attestation I have personally seen and examined this patient.: Yes I have fully participated in the care of the patient.: Yes I have reviewed all pertinent clinical information: Yes Notes (Text): 01/29/18 17:01 57 yo female with h/o left craniectomy with substantial encephalomalatia in the temporal lobe after hemorrhagic stroke in July, now presented with SE, requring intubation and propofol drip. EEG was done while propofol was held--> no seizures, Keppra continued. Patient passed SBT and was successfully extubated to AR. Comfortable, alert, awake and oriented, protecting airways. Baseline right hemiplegia. ccm time 40 min
--- NOTE | 2018-01-29 16:54 | CP.PCM.PN ---
<Tay Guillen - Last Filed: 01/29/18 16:51> Subjective - Date & Time of Evaluation Date of Evaluation: 01/29/18 Time of Evaluation: 08:00 - Subjective Subjective: Tay Guillen, PGY-1 Progress Note for Hospitalist Service Patient seen and examined at bedside this morning. No acute events overnight. Patient is sedated with propofol and intubated this morning. She is arousable but does not respond to commands. ROS unobtainable due to intubation. Objective - Vital Signs/Intake and Output Vital Signs (last 24 hours): Temp Pulse Resp BP Pulse Ox 98.9 F 88 18 111/80 100 01/29/18 02:25 01/29/18 08:30 01/29/18 07:05 01/29/18 08:30 01/29/18 08:30 Intake and Output: 01/29/18 01/29/18 06:59 18:59 Intake Total 78 95 Output Total 1000 Balance -922 95 - Medications Medications: Current Medications Sodium Chloride (Sodium Chloride 0.9%) 1,000 mls @ 150 mls/hr IV .Q6H40M [facility] Last Admin: 01/29/18 08:41 Dose: 150 mls/hr Propofol (Diprivan) 1,000 mg in 100 mls @ 5.552 mls/hr IV .Q18H1M PRN; Protocol ; 15 MCG/KG/MIN PRN Reason: TITRATE PER MD ORDER Last Titration: 01/29/18 11:07 Dose: 0 mcg/kg/min, 0 mls/hr Levetiracetam 1,000 mg/ Sodium (Chloride) 110 mls @ 460 mls/hr IV Q12 [facility] Lorazepam (Ativan) 1 mg IVP Q5M PRN; Protocol PRN Reason: Seizure activity Pantoprazole Sodium (Protonix Inj) 40 mg IVP DAILY [facility] Last Admin: 01/29/18 09:42 Dose: 40 mg - Labs Labs: 01/29/18 06:00 01/29/18 06:00 PT 11.3 SECONDS (9.4-12.5) 01/28/18 18:29 INR 0.99 01/28/18 18:29 APTT 48.3 Seconds (25.1-36.5) H 01/28/18 18:29 - Head Exam Head Exam: ATRAUMATIC - Eye Exam Pupil Exam: PERRL - ENT Exam ENT Exam: Mucous Membranes Moist - Respiratory Exam Respiratory Exam: Clear to Ausculation Bilateral - Cardiovascular Exam Cardiovascular Exam: REGULAR RHYTHM, +S1, +S2 - GI/Abdominal Exam GI & Abdominal Exam: Normal Bowel Sounds. 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 Currently being managed in the ICU. Status epilepticus -presented to the ED in sustained seizure -given total of 1500mg of keppra in ED and 2mg of ativan -CT head showed extensive left sided craniotomy with removal of bone. There is encephalomalacia in the left basal ganglia and left temporal lobe. There is dilation of the left lateral ventricles. No acute findings -currently receiving keppra 1,000mg keppra IV q12 -ativan prn -sedated with propofol and intubated with vent settings of TV 410, RR 14 and PEEP of 5 at FiO2 of 40 -will attempt trial of extubation today -EEG final read pending -aspiration and seizure precautions -receiving NS @ 150 ml/hr -neuro checks -Valproic acid < 10 -lactate improved to 0.9 from 9.4 on admission -Neuro on consult, Dr. Thomas UTI - resolved -patient had left arm midline for recurrent UTI, recently finished course of merrem -U/A showed 100 protein, and moderate bacteria in the urine, otherwise unremarkable Hypertension -BP this morning was 121/83 with high of 153/104 overnight -Will hold home medications norvasc and metoprolol at this time Hyperlipidemia -holding home medications gemfibrozil and crestor at this time PPX with protonix and SCD Case discussed and reviewed with attending, Dr. Park <Katalina Park - Last Filed: 01/30/18 09:03> Objective - Vital Signs/Intake and Output Vital Signs (last 24 hours): Temp Pulse Resp BP Pulse Ox 98.5 F 78 14 129/74 100 01/30/18 02:25 01/30/18 06:36 01/29/18 17:09 01/30/18 06:36 01/29/18 17:09 - Medications Medications: Current Medications Sodium Chloride (Sodium Chloride 0.9%) 1,000 mls @ 150 mls/hr IV .Q6H40M [facility] Last Admin: 01/30/18 06:37 Dose: 150 mls/hr Propofol (Diprivan) 1,000 mg in 100 mls @ 5.552 mls/hr IV .Q18H1M PRN; Protocol ; 15 MCG/KG/MIN PRN Reason: TITRATE PER MD ORDER Last Titration: 01/29/18 11:07 Dose: 0 mcg/kg/min, 0 mls/hr Levetiracetam 1,000 mg/ Sodium (Chloride) 110 mls @ 460 mls/hr IV Q12 [facility] Last Admin: 01/29/18 21:43 Dose: 460 mls/hr Lorazepam (Ativan) 1 mg IVP Q5M PRN; Protocol PRN Reason: Seizure activity Last Admin: 01/30/18 03:46 Dose: 1 mg Metoprolol Tartrate (Lopressor) 5 mg IVP Q6H [facility] Last Admin: 01/30/18 06:36 Dose: 5 mg Pantoprazole Sodium (Protonix Inj) 40 mg IVP DAILY [facility] Last Admin: 01/29/18 09:42 Dose: 40 mg - Labs Labs: 01/30/18 05:00 01/30/18 05:30 PT 11.3 SECONDS (9.4-12.5) 01/28/18 18:29 INR 0.99 01/28/18 18:29 APTT 48.3 Seconds (25.1-36.5) H 01/28/18 18:29 Attending/Attestation - Attestation I have personally seen and examined this patient.: Yes I have fully participated in the care of the patient.: Yes I have reviewed all pertinent clinical information, including history, physical exam and plan: Yes Notes (Text): Patient seen and examined by me at 9:05AM with resident 01/29/18. Case including HPI, physical exam, and assessment and plan discussed with resident. Agree with above with following additions/corrections. Patient is a 57 year old female with past medical history significant for NE, hypertension, hyperlipidemia, CHF, PE, anemia, seziures, and chronic pain that presented to the emergency room with status epilepticus. Patient is intubated. Just taken off of sedation for EEG. Patient not following commands. Unable to obtain any review of systems from patient. Patient is afebrie. Physical exam: General: Awake, lying in bed in no acute distress HEENT: Left craniotomy scar noted. No scleral icterus. Oropharynx is pink and moist. ET tube in place Cardiovascular: Normal S1, S2. No murmurs, rubs, or gallops appreciated Pulmonary: Positive vent sounds. No rhonchi, rales or wheezing appreciated. Gastrointestinal: Soft, Nondistended, Positive bowel sounds all 4 quadrants, no guarding. Musculoskeletal: Currently not moving extremities. No edema appreciated. Central nervous system: Awake, not following commands Dermatologic: Skin warm and dry Assessment and plan: Patient is a 57 year old female with past medical history significant for CAD, hypertension, hyperlipidemia, CHF, PE, anemia, seziures, and chronic pain that presented to the emergency room with status epilepticus. 1. Status epilepticus in a patient with history of seizures. CT head per radiologist showed there has been an extensive left sided craniotomy with removal of bone; there is encephalomalacia in the left basal ganglia and left lateral temporal lobe; there is dilatation of the left lateral ventricles,no acute findings. EEG read pending. Continue Keppra. Continue ativan prn. Neurology following, recommendations appreciated. Patient intubated to protect airway. Vent setting as per ICU. Wean as tolerated 2. Leukocytosis. Resolved. May have been reactive. No current signs of infection 3. Hypokalemia. Replete potassium. Follow up repeat labs in AM 4. Hypertension. Continue Metoprolol IV 5. Elevated lactate. Secondary to seizure activity. Resolved. 6. Hypercholesterolemia. Home medications held for now. 7. History of hemorrhagic CVA s/p left temporal and pariental craniotomy. Stable. No anticoagulation. Home statin held for now 8. History of CHF/CAD. No acute issues. Home medications held for now as patient is intubated.
[2018-01-29] MEDS: Metoprolol 1 mg/ml Inj IVP SCH (18:42)
[2018-01-29] MEDS: levETIRAcetam 1,000 MG in Sodium Chloride 0.9% 100 ML IV SCH (21:43)
[2018-01-30] MEDS: Metoprolol 1 mg/ml Inj IVP SCH ×4 (03:46→17:26)
[2018-01-30 06:37] LABS: BASO # 0.09 K/mm3 (0.0-2.0); BASO % 1.2 % (0.0-3.0); EOS # 0.4 (0.0-0.7); EOS % 5.1 % (1.5-5.0); GRAN # 4.17 (1.4-6.5); GRAN % 57.5 % (50.0-68.0); HEMOGLOBIN 12.2 g/dL (12.0-16.0); LYMPH # 2.1 (1.2-3.4); MEAN CORPUSCULAR HEMOGLOBIN 28.4 pg (25.0-35.0); MEAN PLATELET VOLUME 8.7 fl (7.0-11.0); MONO # 0.5 (0.1-0.6); MONO % 7.2 % (1.0-6.0); RBC 4.3 10^6/uL (3.5-6.1); RED CELL DISTRIBUTION WIDTH 13.9 % (11.5-14.5); WHITE BLOOD COUNT 7.3 10^3/ul (4.5-11.0)
[2018-01-30] MEDS: Sodium Chloride 0.9% 1,000 ML IV SCH ×3 (06:37→21:39)
[2018-01-30 07:16] LABS: ALB/GLOB RATIO 1.1 (1.1-1.8); ALBUMIN 3.5 g/dL (3.0-4.8); ALT/SGPT 26 U/L (7-56); AST/SGOT 42 U/L (14-36); BLOOD UREA NITROGEN 6 mg/dL (7-21); CALCIUM 8.9 mg/dL (8.4-10.5); GFR NON-AFRICAN AMERICAN > 60
--- NOTE | 2018-01-30 07:17 | CP.PCM.PN ---
<Brook Garcia - Last Filed: 01/30/18 12:42> Subjective - Date & Time of Evaluation Date of Evaluation: 01/30/18 Time of Evaluation: 08:45 - Subjective Subjective: PGY-1 Brook Garcia D.O. Neurology consult note for Dr. Thomas's service: Patient is seen and examined this morning. Family is not present. No events reported overnight. She does not appear in acute distress. She is sitting upright in bed with her eyes open. She does not have her helmet on. She is able to track with her eyes. She nods to each question asked, even questions that do not require a yes/no answer. She moves her LUE on command. She does not move her RUE or LEs. She does not speak. She does not open her mouth when asked. Night nursing report states that patient was verbal last night. No seizure activity has been observed. Patient was re-examined in the afternoon. She is sitting upright in a chair with the helmet on. She is repeating an incoherent phrase and attempting to pull at her peterson tubing with her L hand. Objective - Vital Signs/Intake and Output Vital Signs (last 24 hours): Temp Pulse Resp BP Pulse Ox 98.5 F 78 14 129/74 100 01/30/18 02:25 01/30/18 06:36 01/29/18 17:09 01/30/18 06:36 01/29/18 17:09 - Medications Medications: Current Medications Sodium Chloride (Sodium Chloride 0.9%) 1,000 mls @ 150 mls/hr IV .Q6H40M [facility] Last Admin: 01/30/18 06:37 Dose: 150 mls/hr Propofol (Diprivan) 1,000 mg in 100 mls @ 5.552 mls/hr IV .Q18H1M PRN; Protocol ; 15 MCG/KG/MIN PRN Reason: TITRATE PER MD ORDER Last Titration: 01/29/18 11:07 Dose: 0 mcg/kg/min, 0 mls/hr Levetiracetam 1,000 mg/ Sodium (Chloride) 110 mls @ 460 mls/hr IV Q12 [facility] Last Admin: 01/29/18 21:43 Dose: 460 mls/hr Lorazepam (Ativan) 1 mg IVP Q5M PRN; Protocol PRN Reason: Seizure activity Last Admin: 01/30/18 03:46 Dose: 1 mg Metoprolol Tartrate (Lopressor) 5 mg IVP Q6H [facility] Last Admin: 01/30/18 06:36 Dose: 5 mg Pantoprazole Sodium (Protonix Inj) 40 mg IVP DAILY [facility] Last Admin: 01/29/18 09:42 Dose: 40 mg - Labs Labs: 01/29/18 06:00 01/29/18 06:00 PT 11.3 SECONDS (9.4-12.5) 01/28/18 18:29 INR 0.99 01/28/18 18:29 APTT 48.3 Seconds (25.1-36.5) H 01/28/18 18:29 - Constitutional Appears: No Acute Distress, Chronically Ill - Head Exam Additional comments: soft tissue L temporal-parietal area where skull removed, no open lesions - Eye Exam Eye Exam: EOMI, Normal appearance, PERRL - ENT Exam ENT Exam: Mucous Membranes Moist, Normal Exam - Neck Exam Neck Exam: Normal Inspection - Respiratory Exam Respiratory Exam: Clear to Ausculation Bilateral, NORMAL BREATHING PATTERN - Cardiovascular Exam Cardiovascular Exam: REGULAR RHYTHM, +S1, +S2 - GI/Abdominal Exam GI & Abdominal Exam: Soft - Rectal Exam Rectal Exam: Deferred - Extremities Exam Extremities Exam: Normal Capillary Refill. absent: Pedal Edema Additional comments: pt only moves LUE spontaneously and on command no movement of RUE or LEs observed RUE is somewhat contracted and rigid with passive movement - Neurological Exam Neurological Exam: Alert, Awake Neuro motor strength exam: Left Upper Extremity: 4, Right Upper Extremity: 0, Left Lower Extremity: 0, Right Lower Extremity: 0 - Psychiatric Exam Psychiatric exam: Flat Affect Additional comments: appears slightly agitated, unable to articulate mood - Skin Skin Exam: Dry, Intact, Normal Color, Warm Assessment and Plan - Assessment and Plan (Free Text) Assessment: Patient is a 57 yo female with an extensive past medical history who presented with status epilepticus. Ativan and Keppra failed to stop seizure before patient had to be intubated to protect her airway. She was successful extubated and off propofol <24 hrs later. She was initially managed in the ICU, and she is now downgraded to telemetry. She is on standing Keppra and Ativan as needed. Of note, patient had a craniotomy after a hemorrhagic CVA in Jul 2017. Plan: Status epilepticus, resolved- pt on Keppra at home - CT head: no acute findings - LA 9.4->0.9; WBC 14.6->9.3->7.3 - Seizure precautions - Keppra 1000 mg PO BID - Keppra level pending - Continue Ativan prn- plesae use only for seizure activity - Will give one time dose of Ativan 1 mg IV and start Seroquel 25 mg PO QHS for agitation - Replete K, Mg as needed - f/u EEG- final report not necessary to downgrade pt status or pertinent to management at this time - PT/OT/ST H/o hemorrhagic CVA s/p L temporal-parietal craniotomy - CT head: There has been an extensive left-sided craniotomy with removal of bone. There is encephalomalacia in the left basal ganglia and left lateral temporal lobe. There is dilatation of the left lateral ventricles. - Utilize helmet when pt at risk of compressing/injuring head - Primary team is obtaining records from [facility] HTN, chronic- SBP 130s-160s - Management per primary team - Currently on metoprolol 5 IV q6hrs Case discussed with attending, Dr. Thomas. <Dayne Thomas - Last Filed: 01/30/18 19:19> Objective - Vital Signs/Intake and Output Vital Signs (last 24 hours): Temp Pulse Resp BP Pulse Ox 98.5 F 70 16 125/72 100 01/30/18 02:25 01/30/18 16:30 01/30/18 16:40 01/30/18 16:30 01/30/18 16:40 - Medications Medications: Current Medications Levetiracetam 1,000 mg/ Sodium (Chloride) 110 mls @ 460 mls/hr IV Q12 [facility] Last Admin: 01/30/18 09:31 Dose: 460 mls/hr Sodium Chloride (Sodium Chloride 0.9%) 1,000 mls @ 100 mls/hr IV .Q10H [facility] Last Admin: 01/30/18 11:14 Dose: 100 mls/hr Lorazepam (Ativan) 1 mg IVP Q5M PRN; Protocol PRN Reason: Seizure activity Last Admin: 01/30/18 03:46 Dose: 1 mg Metoprolol Tartrate (Lopressor) 5 mg IVP Q6H [facility] Last Admin: 01/30/18 17:26 Dose: Not Given Pantoprazole Sodium (Protonix Inj) 40 mg IVP DAILY [facility] Last Admin: 01/30/18 09:06 Dose: 40 mg Quetiapine Fumarate (Seroquel) 25 mg PO HS [facility] PRN Reason: Protocol - Labs Labs: 01/30/18 05:00 01/30/18 05:30 PT 11.3 SECONDS (9.4-12.5) 01/28/18 18:29 INR 0.99 01/28/18 18:29 APTT 48.3 Seconds (25.1-36.5) H 01/28/18 18:29 Attending/Attestation - Attestation I have personally seen and examined this patient.: Yes I have fully participated in the care of the patient.: Yes I have reviewed all pertinent clinical information, including history, physical exam and plan: Yes Notes (Text): 01/30/18 19:18 I personally saw and examined Mrs. Myrick at bedside. She was neurologically unchanged compared with yesterday's examination. There were no other seizures reported. The patient was agitated. I recommended giving her a dose of 1 mg of Ativan since she was threatening to remove her Peterson and risk injury. I also recommended a small dose of Seroquel 25 mg daily for agitation and possible psychosis.
[2018-01-30] MEDS: levETIRAcetam 1,000 MG in Sodium Chloride 0.9% 100 ML IV SCH ×2 (09:31→21:38)
--- NOTE | 2018-01-30 13:52 | RAD ---
Date of service: 01/30/2018 HISTORY: r/o aspiration pna COMPARISON: 01/29/2018 FINDINGS: LUNGS: No active pulmonary disease. PLEURA: No significant pleural effusion identified, no pneumothorax apparent. CARDIOVASCULAR: Normal. OSSEOUS STRUCTURES: No significant abnormalities. VISUALIZED UPPER ABDOMEN: Normal. OTHER FINDINGS: Left-sided PICC line terminates at the junction of the SVC and right atrium IMPRESSION: No active disease.
--- NOTE | 2018-01-30 14:42 | CP.CCUPN ---
<Gordon Park - Last Filed: 01/30/18 14:42> CCU Subjective - Physician Review Subjective (Free Text): 01/29/18 12:48 Patient was seen and examined at bedside this AM in ICU. No acute events overnight. Patient sedated and intubated on evaluation 12 system ROS unobtainable at this time. CCU Objective - Vital Signs / Intake & Output Vital Signs (Last 4 hours): Vital Signs Pulse BP 01/30/18 12:56 102 H 159/65 H Intake and Output (Last 8hrs): Intake & Output 01/29/18 01/30/18 01/30/18 22:59 06:59 14:59 Intake Total 1950 Output Total 800 Balance 1150 Intake: IV 1950 Left Upper arm 1900 Right Hand 50 Output: Urine 800 Urethral (Youssef) 800 Other: # Bowel Movements 0 - Physical Exam Head: Positive for: Other (L skull soft to palpation; no acute trauma noted) Pupils: Positive for: Pinpoint Conjunctiva: Positive for: Normal. Negative for: Icteric Mouth: Positive for: Other (intubated) Respiratory/Chest: Positive for: Clear to Auscultation, Good Air Exchange. Negative for: Respiratory Distress Cardiovascular: Positive for: Regular Rate and Rhythm, Normal S1, S2. Negative for: Murmurs Abdomen: Positive for: Normal Bowel Sounds. Negative for: Tenderness, Distention, Peritoneal Signs Upper Extremity: Positive for: Normal Inspection, NORMAL PULSES Lower Extremity: Positive for: Normal Inspection, NORMAL PULSES Neurological: Positive for: Other (RLE Babinski equivocal; LLE Babinski intact - Normal ) Skin: Positive for: Warm, Dry Psychiatric: Positive for: Other (Sedated) - Medications Active Medications: Active Medications Generic Name Dose Route Start Last Admin Trade Name Freq PRN Reason Stop Dose Admin Levetiracetam 1,000 mg/ Sodium 110 mls @ 460 mls/hr 01/29/18 22:00 01/30/18 09:31 Chloride IV 460 mls/hr Q12 [facility] Administration Sodium Chloride 1,000 mls @ 100 mls/hr 01/30/18 10:22 01/30/18 11:14 Sodium Chloride 0.9% IV 100 mls/hr .Q10H [facility] Administration Lorazepam 1 mg 01/29/18 00:38 01/30/18 03:46 Ativan IVP 1 mg Q5M PRN Administration Seizure activity Protocol Metoprolol Tartrate 5 mg 01/29/18 17:45 01/30/18 12:56 Lopressor IVP 5 mg Q6H [facility] Administration Pantoprazole Sodium 40 mg 01/29/18 10:00 01/30/18 09:06 Protonix Inj IVP 40 mg DAILY [facility] Administration Quetiapine Fumarate 25 mg 01/30/18 22:00 Seroquel PO HS [facility] Protocol - Patient Studies Lab Studies: Lab Studies 01/30/18 01/30/18 Range/Units 05:30 05:00 WBC 7.3 D (4.5-11.0) 10^3/ul RBC 4.30 (3.5-6.1) 10^6/uL Hgb 12.2 (12.0-16.0) g/dL Hct 37.0 (36.0-48.0) % MCV 86.0 (80.0-105.0) fl MCH 28.4 (25.0-35.0) pg MCHC 33.0 (31.0-37.0) g/dl RDW 13.9 (11.5-14.5) % Plt Count 343 (120.0-450.0) 10^3/uL MPV 8.7 (7.0-11.0) fl Gran % 57.5 (50.0-68.0) % Lymph % (Auto) 29.0 (22.0-35.0) % [place] % (Auto) 7.2 H (1.0-6.0) % Eos % (Auto) 5.1 H (1.5-5.0) % Baso % (Auto) 1.2 (0.0-3.0) % Gran # 4.17 (1.4-6.5) Lymph # (Auto) 2.1 (1.2-3.4) [place] # (Auto) 0.5 (0.1-0.6) Eos # (Auto) 0.4 (0.0-0.7) Baso # (Auto) 0.09 (0.0-2.0) K/mm3 Sodium 143 (132-148) mmol/L Potassium 3.4 L (3.6-5.0) mmol/L Chloride 111 H (98-107) mmol/L Carbon Dioxide 21 (21-33) mmol/L Anion Gap 14 (10-20) BUN 6 L (7-21) mg/dL Creatinine 0.5 L (0.7-1.2) mg/dl Est GFR ( Amer) > 60 Est GFR (Non-Af Amer) > 60 Random Glucose 87 (70-110) mg/dL Calcium 8.9 (8.4-10.5) mg/dL Phosphorus 3.1 (2.5-4.5) mg/dL Magnesium 1.6 L (1.7-2.2) mg/dL Total Bilirubin 0.5 (0.2-1.3) mg/dL AST 42 H (14-36) U/L ALT 26 (7-56) U/L Alkaline Phosphatase 91 (38-126) U/L Total Protein 6.5 (5.8-8.3) g/dL Albumin 3.5 (3.0-4.8) g/dL Globulin 3.1 gm/dL Albumin/Globulin Ratio 1.1 (1.1-1.8) Laboratory Results - last 24 hr 01/30/18 01/30/18 05:00 05:30 WBC 7.3 D RBC 4.30 Hgb 12.2 Hct 37.0 MCV 86.0 MCH 28.4 MCHC 33.0 RDW 13.9 Plt Count 343 MPV 8.7 Gran % 57.5 Lymph % (Auto) 29.0 [place] % (Auto) 7.2 H Eos % (Auto) 5.1 H Baso % (Auto) 1.2 Gran # 4.17 Lymph # (Auto) 2.1 [place] # (Auto) 0.5 Eos # (Auto) 0.4 Baso # (Auto) 0.09 Sodium 143 Potassium 3.4 L Chloride 111 H Carbon Dioxide 21 Anion Gap 14 BUN 6 L Creatinine 0.5 L Est GFR ( Amer) > 60 Est GFR (Non-Af Amer) > 60 Random Glucose 87 Calcium 8.9 Phosphorus 3.1 Magnesium 1.6 L Total Bilirubin 0.5 AST 42 H ALT 26 Alkaline Phosphatase 91 Total Protein 6.5 Albumin 3.5 Globulin 3.1 Albumin/Globulin Ratio 1.1 <Balta Alarcon - Last Filed: 01/30/18 15:19> CCU Objective - Vital Signs / Intake & Output Vital Signs (Last 4 hours): Vital Signs Pulse BP 01/30/18 12:56 102 H 159/65 H - Medications Active Medications: Active Medications Generic Name Dose Route Start Last Admin Trade Name Freq PRN Reason Stop Dose Admin Levetiracetam 1,000 mg/ Sodium 110 mls @ 460 mls/hr 01/29/18 22:00 01/30/18 09:31 Chloride IV 460 mls/hr Q12 [facility] Administration Sodium Chloride 1,000 mls @ 100 mls/hr 01/30/18 10:22 01/30/18 11:14 Sodium Chloride 0.9% IV 100 mls/hr .Q10H [facility] Administration Lorazepam 1 mg 01/29/18 00:38 01/30/18 03:46 Ativan IVP 1 mg Q5M PRN Administration Seizure activity Protocol Metoprolol Tartrate 5 mg 01/29/18 17:45 01/30/18 12:56 Lopressor IVP 5 mg Q6H [facility] Administration Pantoprazole Sodium 40 mg 01/29/18 10:00 01/30/18 09:06 Protonix Inj IVP 40 mg DAILY [facility] Administration Quetiapine Fumarate 25 mg 01/30/18 22:00 Seroquel PO HS [facility] Protocol - Patient Studies Lab Studies: Lab Studies 01/30/18 01/30/18 Range/Units 05:30 05:00 WBC 7.3 D (4.5-11.0) 10^3/ul RBC 4.30 (3.5-6.1) 10^6/uL Hgb 12.2 (12.0-16.0) g/dL Hct 37.0 (36.0-48.0) % MCV 86.0 (80.0-105.0) fl MCH 28.4 (25.0-35.0) pg MCHC 33.0 (31.0-37.0) g/dl RDW 13.9 (11.5-14.5) % Plt Count 343 (120.0-450.0) 10^3/uL MPV 8.7 (7.0-11.0) fl Gran % 57.5 (50.0-68.0) % Lymph % (Auto) 29.0 (22.0-35.0) % [place] % (Auto) 7.2 H (1.0-6.0) % Eos % (Auto) 5.1 H (1.5-5.0) % Baso % (Auto) 1.2 (0.0-3.0) % Gran # 4.17 (1.4-6.5) Lymph # (Auto) 2.1 (1.2-3.4) [place] # (Auto) 0.5 (0.1-0.6) Eos # (Auto) 0.4 (0.0-0.7) Baso # (Auto) 0.09 (0.0-2.0) K/mm3 Sodium 143 (132-148) mmol/L Potassium 3.4 L (3.6-5.0) mmol/L Chloride 111 H (98-107) mmol/L Carbon Dioxide 21 (21-33) mmol/L Anion Gap 14 (10-20) BUN 6 L (7-21) mg/dL Creatinine 0.5 L (0.7-1.2) mg/dl Est GFR ( Amer) > 60 Est GFR (Non-Af Amer) > 60 Random Glucose 87 (70-110) mg/dL Calcium 8.9 (8.4-10.5) mg/dL Phosphorus 3.1 (2.5-4.5) mg/dL Magnesium 1.6 L (1.7-2.2) mg/dL Total Bilirubin 0.5 (0.2-1.3) mg/dL AST 42 H (14-36) U/L ALT 26 (7-56) U/L Alkaline Phosphatase 91 (38-126) U/L Total Protein 6.5 (5.8-8.3) g/dL Albumin 3.5 (3.0-4.8) g/dL Globulin 3.1 gm/dL Albumin/Globulin Ratio 1.1 (1.1-1.8) Laboratory Results - last 24 hr 01/30/18 01/30/18 05:00 05:30 WBC 7.3 D RBC 4.30 Hgb 12.2 Hct 37.0 MCV 86.0 MCH 28.4 MCHC 33.0 RDW 13.9 Plt Count 343 MPV 8.7 Gran % 57.5 Lymph % (Auto) 29.0 [place] % (Auto) 7.2 H Eos % (Auto) 5.1 H Baso % (Auto) 1.2 Gran # 4.17 Lymph # (Auto) 2.1 [place] # (Auto) 0.5 Eos # (Auto) 0.4 Baso # (Auto) 0.09 Sodium 143 Potassium 3.4 L Chloride 111 H Carbon Dioxide 21 Anion Gap 14 BUN 6 L Creatinine 0.5 L Est GFR ( Amer) > 60 Est GFR (Non-Af Amer) > 60 Random Glucose 87 Calcium 8.9 Phosphorus 3.1 Magnesium 1.6 L Total Bilirubin 0.5 AST 42 H ALT 26 Alkaline Phosphatase 91 Total Protein 6.5 Albumin 3.5 Globulin 3.1 Albumin/Globulin Ratio 1.1 Addendum Addendum: 01/30/18 15:19 ICU Attending Addendum: Patient seen and examined. Case reviewed on round with housestaff. Agree with resident note above with the following additions/exceptions: 57 F with hx of hem stroke s/p left crani (Jul 2017) [place], HTN, CHF, PE, admitted to the ICU for status epilepticus. Extubated yesterday. No seizures in the past 24 hours. Has residual right hemiplagia as per documentation from her initial stroke in jul. Keppra for secondary seizure ppx ativan PRN f/u neuro recs speech and swallow eval once able to take PO meds resume home antihypertensives and statin not on AC (hx of PE, DVT) given hem stroke replete K and MG and Phos stable for transfer out of ICU Rest of care as noted above. Balta Alarcon MD Dress Fitter Critical care time : 35 mins
--- NOTE | 2018-01-30 16:00 | CP.PCM.PN ---
<Tay Guillen - Last Filed: 01/30/18 15:57> Subjective - Date & Time of Evaluation Date of Evaluation: 01/30/18 Time of Evaluation: 15:57 - Subjective Subjective: Tay Guillen, PGY-1 Progress Note for Hospitalist Service Patient seen and examined in the ICU this morning. No acute events overnight. She was extubated yesterday and is off sedation. Currently, she is alert but is not oriented to place or time. Will be transferred to remote tele today. She denies CP, SOB, headache, abdominal pain, urinary complaints and swelling. Objective - Vital Signs/Intake and Output Vital Signs (last 24 hours): Temp Pulse Resp BP Pulse Ox 98.5 F 102 H 14 159/65 H 100 01/30/18 02:25 01/30/18 12:56 01/29/18 17:09 01/30/18 12:56 01/29/18 17:09 - Medications Medications: Current Medications Levetiracetam 1,000 mg/ Sodium (Chloride) 110 mls @ 460 mls/hr IV Q12 [facility] Last Admin: 01/30/18 09:31 Dose: 460 mls/hr Sodium Chloride (Sodium Chloride 0.9%) 1,000 mls @ 100 mls/hr IV .Q10H [facility] Last Admin: 01/30/18 11:14 Dose: 100 mls/hr Lorazepam (Ativan) 1 mg IVP Q5M PRN; Protocol PRN Reason: Seizure activity Last Admin: 01/30/18 03:46 Dose: 1 mg Metoprolol Tartrate (Lopressor) 5 mg IVP Q6H [facility] Last Admin: 01/30/18 12:56 Dose: 5 mg Pantoprazole Sodium (Protonix Inj) 40 mg IVP DAILY [facility] Last Admin: 01/30/18 09:06 Dose: 40 mg Quetiapine Fumarate (Seroquel) 25 mg PO HS [facility] PRN Reason: Protocol - Labs Labs: 01/30/18 05:00 01/30/18 05:30 PT 11.3 SECONDS (9.4-12.5) 01/28/18 18:29 INR 0.99 01/28/18 18:29 APTT 48.3 Seconds (25.1-36.5) H 01/28/18 18:29 - Head Exam Additional comments: left craniotomy in 2018 - Eye Exam Eye Exam: EOMI Pupil Exam: PERRL - Respiratory Exam Respiratory Exam: Decreased Breath Sounds, Clear to Ausculation Bilateral - Cardiovascular Exam Cardiovascular Exam: REGULAR RHYTHM, +S1, +S2 - GI/Abdominal Exam GI & Abdominal Exam: Soft, Normal Bowel Sounds. absent: Guarding - Extremities Exam Extremities Exam: Normal Inspection. absent: Calf Tenderness - Back Exam Back Exam: NORMAL INSPECTION - Neurological Exam Neurological Exam: Alert, CN II-XII Intact. 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 Patient transferred to remote tele today. Status epilepticus -extubated yesterday, off sedation -currently on keppra 1,000mg IV q12 -CT head showed extensive left sided craniotomy with removal of bone. There is encephalomalacia in the left basal ganglia and left temporal lobe. There is dilation of the left lateral ventricles. No acute findings -ativan prn -EEG final read pending -receiving NS @ 100 ml/hr -neuro checks -on seroquel 25mg -lactate improved to 0.9 from 9.4 on admission -aspiration and seizure precautions -swallow eval today -Neuro on consult, Dr. Thomas History of hemorrhagic stroke -hemorrhagic CVA with left temporal and parietal craniotomy in July 2017 -not on anticoagulation at this time given history of hemorrhagic stroke in July 2017 Hypokalemia -potassium is 3.4 today from 3.4 yesterday -repleted today Hypertension -BP this morning was 129/74 with high of 159/65 today -Currently on lopressor 5mg IVP q6 Hyperlipidemia -holding home medications gemfibrozil and crestor at this time PPX with protonix and SCD Patient seen with, case discussed and reviewed with attending, Dr. Park <Katalina Park - Last Filed: 01/31/18 07:55> Objective - Vital Signs/Intake and Output Vital Signs (last 24 hours): Temp Pulse Resp BP Pulse Ox 98.5 F 71 16 132/80 100 01/30/18 02:25 01/31/18 06:00 01/30/18 16:40 01/31/18 06:19 01/30/18 16:40 Intake and Output: 01/31/18 01/31/18 06:59 18:59 Output Total 1200 Balance -1200 - Medications Medications: Current Medications Levetiracetam 1,000 mg/ Sodium (Chloride) 110 mls @ 460 mls/hr IV Q12 S[facility]Y Last Admin: 01/30/18 21:38 Dose: 460 mls/hr Sodium Chloride (Sodium Chloride 0.9%) 1,000 mls @ 100 mls/hr IV .Q10H [facility] Last Admin: 01/31/18 06:26 Dose: 100 mls/hr Lorazepam (Ativan) 1 mg IVP Q5M PRN; Protocol PRN Reason: Seizure activity Last Admin: 01/30/18 22:39 Dose: 1 mg Metoprolol Tartrate (Lopressor) 5 mg IVP Q6H [facility] Last Admin: 01/31/18 06:19 Dose: 5 mg Pantoprazole Sodium (Protonix Inj) 40 mg IVP DAILY [facility] Last Admin: 01/30/18 09:06 Dose: 40 mg Quetiapine Fumarate (Seroquel) 25 mg PO HS S[facility]Y PRN Reason: Protocol Last Admin: 01/30/18 21:38 Dose: 25 mg - Labs Labs: 01/31/18 06:00 01/31/18 06:00 PT 11.3 SECONDS (9.4-12.5) 01/28/18 18:29 INR 0.99 01/28/18 18:29 APTT 48.3 Seconds (25.1-36.5) H 01/28/18 18:29 Attending/Attestation - Attestation I have personally seen and examined this patient.: Yes I have fully participated in the care of the patient.: Yes I have reviewed all pertinent clinical information, including history, physical exam and plan: Yes Notes (Text): Patient seen and examined by me at 10:10AM with resident 01/30/18. Case including HPI, physical exam, and assessment and plan discussed with resident. Agree with above with following additions/corrections. Patient is a 57 year old female with past medical history significant for [place], hypertension, hyperlipidemia, CHF, PE, anemia, seziures, and chronic pain that presented to the emergency room with status epilepticus. Patient is status post extubation. Patient is verbalizing very little. States she wants "something." When asked if she is asking for food, she nods "yes." Patient is following some commands. Patient not answering all questions. Unable to obtain review of systems from patient. Patient has been afebrile. Failed bedside swallow. Patient is coughing. Patient is being transferred out of the ICU. Physical exam: General: Awake and alert, lying in bed in no acute distress HEENT: Left craniotomy scar noted. No scleral icterus. Oropharynx is pink. Positive dry mucous membranes. Neck is supple. Cardiovascular: Normal S1, S2. No murmurs, rubs, or gallops appreciated Pulmonary: Normal repsiratory effort. No rhonchi, rales or wheezing appreciated. Gastrointestinal: Soft, nondistended, nontender. Positive bowel sounds all 4 quadrants, no guarding. Musculoskeletal: Decreased range of motion on right (chronic from previous CVA) . No edema appreciated. Central nervous system: Awake and alert, following some commands, squeezed my hand, right sided hemiparesis (chronic from previous stroke). Dermatologic: Skin warm and dry Assessment and plan: Patient is a 57 year old female with past medical history significant for CAD, hypertension, hyperlipidemia, CHF, PE, anemia, seziures, and chronic pain that presented to the emergency room with status epilepticus. 1. Status epilepticus in a patient with history of seizures. Resolved. Continue Keppra 1000mg IV q12hrs. EEG read pending. Continue ativan prn seizure activity. Pending swallow evaluation. CT head per radiologist showed there has been an extensive left sided craniotomy with removal of bone; there is encephalomalacia in the left basal ganglia and left lateral temporal lobe; there is dilatation of the left lateral ventricles,no acute findings. Neurology following, recommendations appreciated. 2. Leukocytosis. Resolved. May have been reactive. No current signs of infection. Urine culture with no growth. 3. Hypokalemia. will replete potassium. Follow up repeat labs in AM 4. Hypertension. Continue Metoprolol IV 5. Elevated lactate. Secondary to seizure activity. Resolved. 6. Hypercholesterolemia. Home medications held for now. 7. History of hemorrhagic CVA s/p left temporal and pariental craniotomy. Stable. No anticoagulation. Home statin held for now 8. History of CHF/CAD. No acute issues. Home medications held for now as patient is intubated. 9. History of DVT/PE. No anticoagulation secondary to hemorrhagic stroke.
[2018-01-31] MEDS: Metoprolol 1 mg/ml Inj IVP SCH ×2 (06:19→13:26)
[2018-01-31] MEDS: Sodium Chloride 0.9% 1,000 ML IV SCH ×2 (06:26→17:45)
[2018-01-31 07:08] LABS: ALBUMIN 2.9 g/dL (3.0-4.8); ALT/SGPT 30 U/L (7-56); AST/SGOT 36 U/L (14-36); BLOOD UREA NITROGEN 3 mg/dL (7-21); CALCIUM 8.5 mg/dL (8.4-10.5); GFR NON-AFRICAN AMERICAN > 60
--- NOTE | 2018-01-31 07:09 | CP.PCM.PN ---
<Brook Garcia - Last Filed: 01/31/18 13:37> Subjective - Date & Time of Evaluation Date of Evaluation: 01/31/18 Time of Evaluation: 09:15 - Subjective Subjective: PGY-1 Brook Garcia D.O. Neurology progress note for Dr. Thomas's service: Patient is seen and examined this morning. No acute events reported overnight. No family is at bedside. She is lying in bed with the covers over her head. She is not wearing her helmet. She is easily arousable. She makes eye contact and repeats an unintelligible phrase. She does not appear in distress- calmer than yesterday's presentation. She nods yes to each question asked. She is spontaneously moving her LUE. Patient is re-examined this afternoon. Her is at bedside. Patient appears much calmer and oriented in comparison to this morning. reports that patient is nearly to her baseline mental status. Objective - Vital Signs/Intake and Output Vital Signs (last 24 hours): Temp Pulse Resp BP Pulse Ox 98.5 F 71 16 132/80 100 01/30/18 02:25 01/31/18 06:00 01/30/18 16:40 01/31/18 06:19 01/30/18 16:40 Intake and Output: 01/31/18 01/31/18 06:59 18:59 Output Total 1200 Balance -1200 - Medications Medications: Current Medications Levetiracetam 1,000 mg/ Sodium (Chloride) 110 mls @ 460 mls/hr IV Q12 COUNTS INCLUDE 234 BEDS AT THE [facility] Last Admin: 01/30/18 21:38 Dose: 460 mls/hr Sodium Chloride (Sodium Chloride 0.9%) 1,000 mls @ 100 mls/hr IV .Q10H COUNTS INCLUDE 234 BEDS AT THE [facility] Last Admin: 01/31/18 06:26 Dose: 100 mls/hr Lorazepam (Ativan) 1 mg IVP Q5M PRN; Protocol PRN Reason: Seizure activity Last Admin: 01/30/18 22:39 Dose: 1 mg Metoprolol Tartrate (Lopressor) 5 mg IVP Q6H S[facility]Y Last Admin: 01/31/18 06:19 Dose: 5 mg Pantoprazole Sodium (Protonix Inj) 40 mg IVP DAILY COUNTS INCLUDE 234 BEDS AT THE [facility] Last Admin: 01/30/18 09:06 Dose: 40 mg Quetiapine Fumarate (Seroquel) 25 mg PO HS S[facility]Y PRN Reason: Protocol Last Admin: 01/30/18 21:38 Dose: 25 mg - Labs Labs: 01/30/18 05:00 01/31/18 06:00 PT 11.3 SECONDS (9.4-12.5) 01/28/18 18:29 INR 0.99 01/28/18 18:29 APTT 48.3 Seconds (25.1-36.5) H 01/28/18 18:29 - Constitutional Appears: No Acute Distress, Chronically Ill - Head Exam Additional comments: soft tissue L temporal-parietal area where skull removed, no open lesions - Eye Exam Eye Exam: EOMI, Normal appearance, PERRL - ENT Exam ENT Exam: Mucous Membranes Moist, Normal Exam - Neck Exam Neck Exam: Normal Inspection - Respiratory Exam Respiratory Exam: Clear to Ausculation Bilateral, NORMAL BREATHING PATTERN - Cardiovascular Exam Cardiovascular Exam: REGULAR RHYTHM, +S1, +S2 - GI/Abdominal Exam GI & Abdominal Exam: Soft - Rectal Exam Rectal Exam: Deferred - Extremities Exam Extremities Exam: Normal Capillary Refill. absent: Pedal Edema Additional comments: no significant change pt only moves LUE spontaneously and on command no movement of RUE or LEs observed RUE is somewhat contracted and rigid with passive movement - Neurological Exam Neurological Exam: Alert, Awake Neuro motor strength exam: Left Upper Extremity: 5 Additional comments: no significant change oriented to person and place - Psychiatric Exam Psychiatric exam: Flat Affect. absent: Agitated Additional comments: unable to articulate mood - Skin Skin Exam: Dry, Intact, Normal Color, Warm Assessment and Plan - Assessment and Plan (Free Text) Assessment: Patient is a 57 yo female with an extensive past medical history, including hemorrhagic CVA s/p craniotomy and seizure disorder, who presented with status epilepticus. Ativan and Keppra failed to stop seizure activity before patient had to be intubated to protect her airway. She was successful extubated and off propofol <24 hrs later. She was initially managed in the ICU, and she is now downgraded to med/surg unit. She is on standing Keppra and Ativan as needed. Plan: Status epilepticus, resolved- pt on Keppra at home - CT head: no acute findings - LA 9.4->0.9; WBC 14.6->6.6 - Seizure precautions - Keppra 1000 mg PO BID - Keppra level pending - Continue Ativan prn- please use only for seizure activity - Seroquel 25 mg PO QHS for agitation and mood - Replete K, Mg as needed - f/u EEG- final report not necessary to downgrade pt status or pertinent to management at this time - PT- home with services - OT - ST- aspiration precautions, finely chopped diet, thin liquids H/o hemorrhagic CVA s/p L temporal-parietal craniotomy - CT head: There has been an extensive left-sided craniotomy with removal of bone. There is encephalomalacia in the left basal ganglia and left lateral temporal lobe. There is dilatation of the left lateral ventricles. - Utilize helmet when pt at risk of compressing/injuring head - Primary team is obtaining records from [facility] [place] HTN, chronic- SBP 110s-150s - Management per primary team - Currently on metoprolol 5 IV q6hrs Case discussed with attending, Dr. Thomas. <Dayne Thomas - Last Filed: 01/31/18 20:53> Objective - Vital Signs/Intake and Output Vital Signs (last 24 hours): Temp Pulse Resp BP Pulse Ox 97.4 F L 71 18 144/89 99 01/31/18 17:32 01/31/18 18:00 01/31/18 17:32 01/31/18 17:44 01/31/18 17:32 Intake and Output: 01/31/18 02/01/18 18:59 06:59 Intake Total 2040 Output Total 1300 Balance 740 - Medications Medications: Current Medications Acetaminophen (Tylenol 325mg Tab) 650 mg PO Q6H PRN PRN Reason: Bladder Spasm Last Admin: 01/31/18 09:52 Dose: 650 mg Docusate Sodium (Colace) 100 mg PO BID PRN PRN Reason: Constipation Last Admin: 01/31/18 10:05 Dose: 100 mg Levetiracetam 1,000 mg/ Sodium (Chloride) 110 mls @ 460 mls/hr IV Q12 SANDY Last Admin: 01/31/18 11:16 Dose: 460 mls/hr Sodium Chloride (Sodium Chloride 0.9%) 1,000 mls @ 100 mls/hr IV .Q10H [facility] Last Admin: 01/31/18 17:45 Dose: 100 mls/hr Lorazepam (Ativan) 1 mg IVP Q5M PRN; Protocol PRN Reason: Seizure activity Last Admin: 01/30/18 22:39 Dose: 1 mg Metoprolol Tartrate (Lopressor) 25 mg PO BID SANDY Last Admin: 01/31/18 17:44 Dose: 25 mg Pantoprazole Sodium (Protonix Inj) 40 mg IVP DAILY S[facility]Y Last Admin: 01/31/18 10:00 Dose: 40 mg Quetiapine Fumarate (Seroquel) 25 mg PO HS S[facility]Y PRN Reason: Protocol Last Admin: 01/30/18 21:38 Dose: 25 mg - Labs Labs: 01/31/18 06:00 01/31/18 06:00 PT 11.3 SECONDS (9.4-12.5) 01/28/18 18:29 INR 0.99 01/28/18 18:29 APTT 48.3 Seconds (25.1-36.5) H 01/28/18 18:29 Attending/Attestation - Attestation I have personally seen and examined this patient.: Yes I have fully participated in the care of the patient.: Yes I have reviewed all pertinent clinical information, including history, physical exam and plan: Yes Notes (Text): 01/31/18 20:52 On my exam, the patient was much improved today and was more verbal.
[2018-01-31 07:52] LABS: BASO # 0.07 K/mm3 (0.0-2.0); BASO % 1.1 % (0.0-3.0); EOS # 0.5 (0.0-0.7); GRAN # 3.26 (1.4-6.5); GRAN % 49.4 % (50.0-68.0); LYMPH # 2.3 (1.2-3.4); LYMPH % 34.3 % (22.0-35.0); MEAN CORPUSCULAR HEMOGLOBIN 28.6 pg (25.0-35.0); MEAN CORPUSCULAR HGB CONC 33.7 g/dl (31.0-37.0); MEAN PLATELET VOLUME 8.6 fl (7.0-11.0); MONO # 0.5 (0.1-0.6); MONO % 8.2 % (1.0-6.0); RBC 3.53 10^6/uL (3.5-6.1); RED CELL DISTRIBUTION WIDTH 13.6 % (11.5-14.5); WHITE BLOOD COUNT 6.6 10^3/ul (4.5-11.0)
[2018-01-31 07:54] LABS: HEMOGLOBIN 10.1 g/dL (12.0-16.0)
[2018-01-31] MEDS ORDERED: Potassium Chloride 40 mEq/30 ml LIQ UD PO ONE (10:35)
[2018-01-31] MEDS ORDERED: Magnesium Oxide 400 mg Tab UD PO ONE (10:35)
[2018-01-31] MEDS: levETIRAcetam 1,000 MG in Sodium Chloride 0.9% 100 ML IV SCH ×2 (11:16→21:39)
--- NOTE | 2018-01-31 11:57 | CP.PCM.PN ---
<Tay Guillen - Last Filed: 01/31/18 11:45> Subjective - Date & Time of Evaluation Date of Evaluation: 01/31/18 Time of Evaluation: 11:45 - Subjective Subjective: Tay Guillen, PGY-1 Progress Note for Hospitalist Service Patient seen and examined at bedside this morning. No acute events overnight. Patient continues to be altered with unknown baseline mentation. Advanced to finely chopped thin liquid diet. Patient admits to right leg pain. Patient denies any other complaints at this time. She is arousable but ROS is limited due to altered state. Objective - Vital Signs/Intake and Output Vital Signs (last 24 hours): Temp Pulse Resp BP Pulse Ox 97.5 F L 64 20 132/80 97 01/31/18 08:22 01/31/18 08:22 01/31/18 08:22 01/31/18 08:22 01/31/18 08:22 Intake and Output: 01/31/18 01/31/18 06:59 18:59 Output Total 1200 Balance -1200 - Medications Medications: Current Medications Acetaminophen (Tylenol 325mg Tab) 650 mg PO Q6H PRN PRN Reason: Bladder Spasm Last Admin: 01/31/18 09:52 Dose: 650 mg Docusate Sodium (Colace) 100 mg PO BID PRN PRN Reason: Constipation Last Admin: 01/31/18 10:05 Dose: 100 mg Levetiracetam 1,000 mg/ Sodium (Chloride) 110 mls @ 460 mls/hr IV Q12 SANDY Last Admin: 01/31/18 11:16 Dose: 460 mls/hr Sodium Chloride (Sodium Chloride 0.9%) 1,000 mls @ 100 mls/hr IV .Q10H [facility] Last Admin: 01/31/18 06:26 Dose: 100 mls/hr Lorazepam (Ativan) 1 mg IVP Q5M PRN; Protocol PRN Reason: Seizure activity Last Admin: 01/30/18 22:39 Dose: 1 mg Metoprolol Tartrate (Lopressor) 5 mg IVP Q6H [facility] Last Admin: 01/31/18 06:19 Dose: 5 mg Pantoprazole Sodium (Protonix Inj) 40 mg IVP DAILY [facility] Last Admin: 01/31/18 10:00 Dose: 40 mg Quetiapine Fumarate (Seroquel) 25 mg PO HS SANDY PRN Reason: Protocol Last Admin: 01/30/18 21:38 Dose: 25 mg - Labs Labs: 01/31/18 06:00 01/31/18 06:00 PT 11.3 SECONDS (9.4-12.5) 01/28/18 18:29 INR 0.99 01/28/18 18:29 APTT 48.3 Seconds (25.1-36.5) H 01/28/18 18:29 - Constitutional Appears: No Acute Distress - Head Exam Additional comments: left skull indenture from left craniotomy in 2018 - Eye Exam Eye Exam: EOMI Pupil Exam: PERRL - ENT Exam ENT Exam: Mucous Membranes Moist - Respiratory Exam Respiratory Exam: Clear to Ausculation Bilateral. absent: Respiratory Distress - Cardiovascular Exam Cardiovascular Exam: REGULAR RHYTHM, +S1, +S2 - GI/Abdominal Exam GI & Abdominal Exam: Normal Bowel Sounds. absent: Firm, Guarding - Extremities Exam Extremities Exam: Normal Inspection. 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 Patient admits to right sided leg pain likely 2/2 previous stroke symptoms. P.T pending. K and Mg replaced. Extubated 2 days ago, no respiratory distress. Status epilepticus -aspiration and seizure precautions -neurochecks -swallow eval: finely chopped thin liquid diet -P.T. pending -currently on keppra 1,000mg IV q12 -CT head showed extensive left sided craniotomy with removal of bone. There is encephalomalacia in the left basal ganglia and left temporal lobe. There is dilation of the left lateral ventricles. No acute findings -EEG final read pending -receiving NS @ 100 ml/hr -on seroquel 25mg, ativan prn for agitation. No agitated on examination today -lactate improved to 0.9 from 9.4 on admission -Neuro on consult, Dr. Thomas History of hemorrhagic stroke -hemorrhagic CVA with left temporal and parietal craniotomy in July 2017 -not on anticoagulation at this time given history of hemorrhagic stroke in July 2017 -right leg pain likely 2/2 stoke. tylenol prn Hypomagnesia -Mg is 1.4 today from 1.6 yesterday -repleted today Hypokalemia -potassium is 3.1 today from 3.4 yesterday -repleted today Anemia -Hg today is 10.1 from 12.2 -likely 2/2 dilution, currently on NS @ 100 ml/hr Hypertension -BP this morning was 132/80 with high of 166/103 overnight -Currently on lopressor 5mg IVP q6 Hyperlipidemia -holding home medications gemfibrozil and crestor at this time PPX with protonix and SCD Patient seen with, case discussed and reviewed with attending, Dr. Park <Katalina Park - Last Filed: 02/01/18 14:52> Objective - Vital Signs/Intake and Output Vital Signs (last 24 hours): Temp Pulse Resp BP Pulse Ox 98.5 F 80 20 150/91 H 100 02/01/18 08:51 02/01/18 10:03 02/01/18 08:51 02/01/18 10:03 02/01/18 08:51 - Medications Medications: Current Medications Acetaminophen (Tylenol 325mg Tab) 650 mg PO Q6H PRN PRN Reason: Bladder Spasm Last Admin: 02/01/18 13:51 Dose: 650 mg Docusate Sodium (Colace) 100 mg PO BID PRN PRN Reason: Constipation Last Admin: 01/31/18 10:05 Dose: 100 mg Gemfibrozil (Lopid) 600 mg PO BID [facility] Levetiracetam 1,000 mg/ Sodium (Chloride) 110 mls @ 460 mls/hr IV Q12 [facility] Last Admin: 02/01/18 09:54 Dose: 460 mls/hr Sodium Chloride (Sodium Chloride 0.9%) 1,000 mls @ 100 mls/hr IV .Q10H [facility] Last Admin: 02/01/18 13:54 Dose: 100 mls/hr Lorazepam (Ativan) 1 mg IVP Q5M PRN; Protocol PRN Reason: Seizure activity Last Admin: 01/30/18 22:39 Dose: 1 mg Metoprolol Tartrate (Lopressor) 25 mg PO BID [facility] Last Admin: 02/01/18 10:03 Dose: 25 mg Pantoprazole Sodium (Protonix Inj) 40 mg IVP DAILY [facility] Last Admin: 02/01/18 10:04 Dose: 40 mg Quetiapine Fumarate (Seroquel) 25 mg PO HS [facility] PRN Reason: Protocol Last Admin: 01/31/18 21:39 Dose: 25 mg - Labs Labs: 02/01/18 06:50 02/01/18 06:50 PT 11.3 SECONDS (9.4-12.5) 01/28/18 18:29 INR 0.99 01/28/18 18:29 APTT 48.3 Seconds (25.1-36.5) H 01/28/18 18:29 Attending/Attestation - Attestation I have personally seen and examined this patient.: Yes I have fully participated in the care of the patient.: Yes I have reviewed all pertinent clinical information, including history, physical exam and plan: Yes Notes (Text): Patient seen and examined by me at 10:20AM with resident 01/31/18. Case including HPI, physical exam, and assessment and plan discussed with resident. Agree with above with following additions/corrections. Patient is a 57 year old female with past medical history significant for [place], hypertension, hyperlipidemia, CHF, PE, anemia, seziures, and chronic pain that presented to the emergency room with status epilepticus. Patient is talking a little more today. States she is hungry. Complains of headache and right leg pain. Denies any chest pain or shortness of breath. No nausea, vomiting, or abdominal pain. Patient is afebrile. Passed swallow eval for dsyphagia diet. Physical exam: General: Awake and alert, lying in bed in no acute distress HEENT: Left craniotomy scar noted. No scleral icterus. Oropharynx is pink. Positive dry mucous membranes. Neck is supple. Cardiovascular: Normal S1, S2. No murmurs, rubs, or gallops appreciated Pulmonary: Normal repsiratory effort. No rhonchi, rales or wheezing appreciated. Gastrointestinal: Soft, nondistended, nontender. Positive bowel sounds all 4 quadrants, no guarding. Musculoskeletal: Decreased range of motion on right (chronic from previous CVA) . No edema appreciated. Central nervous system: Awake and alert, following some commands, right sided hemiparesis (chronic from previous stroke). Dermatologic: Skin warm and dry Assessment and plan: Patient is a 57 year old female with past medical history significant for CAD, hypertension, hyperlipidemia, CHF, PE, anemia, seziures, and chronic pain that presented to the emergency room with status epilepticus. 1. Altered mental status. Patient with some confusion at baseline. May be acutely worsened secondary to seizures. Continue to monitor. PT eval and treat. 2. Status epilepticus in a patient with history of seizures. Resolved. Continue Keppra 1000mg IV q12hrs. EEG read pending. Continue ativan prn seizure activity. CT head per radiologist showed there has been an extensive left sided craniotomy with removal of bone; there is encephalomalacia in the left basal ganglia and left lateral temporal lobe; there is dilatation of the left lateral ventricles,no acute findings. Neurology following, recommendations appreciated. 2. Leukocytosis. Resolved. May have been reactive. No current signs of infection. Urine culture with no growth. 3. Hypokalemia/hypomagnesemia. Replete potassium and magnesium. Follow up repeat labs in AM 4. Hypertension. Continue home metoprolol 5. Elevated lactate. Secondary to seizure activity. Resolved. 6. Hypercholesterolemia. Home medications held for now. 7. History of hemorrhagic CVA s/p left temporal and parietal craniotomy. Stable. No anticoagulation. Home statin held for now 8. History of CHF/CAD. No acute issues. Continue metoprolol. 9. History of DVT/PE. No anticoagulation secondary to hemorrhagic stroke.
[2018-01-31] MEDS ORDERED: Magnesium 2 gm/50 ml NS 2 GM/50 ML BAG IVPB ONE (12:16)
[2018-02-01 07:11] LABS: BASO # 0.07 K/mm3 (0.0-2.0); EOS # 0.4 (0.0-0.7); EOS % 5.8 % (1.5-5.0); GRAN # 4.14 (1.4-6.5); GRAN % 60.6 % (50.0-68.0); HEMOGLOBIN 10.7 g/dL (12.0-16.0); LYMPH # 1.8 (1.2-3.4); LYMPH % 25.9 % (22.0-35.0); MEAN CELL VOLUME 84.6 fl (80.0-105.0); MEAN CORPUSCULAR HEMOGLOBIN 28.5 pg (25.0-35.0); MEAN CORPUSCULAR HGB CONC 33.6 g/dl (31.0-37.0); MEAN PLATELET VOLUME 8.6 fl (7.0-11.0); MONO # 0.5 (0.1-0.6); MONO % 6.7 % (1.0-6.0); RBC 3.76 10^6/uL (3.5-6.1); RED CELL DISTRIBUTION WIDTH 13.7 % (11.5-14.5); WHITE BLOOD COUNT 6.8 10^3/ul (4.5-11.0)
--- NOTE | 2018-02-01 07:17 | CP.PCM.PN ---
<Brook Garcia - Last Filed: 02/01/18 13:18> Subjective - Date & Time of Evaluation Date of Evaluation: 02/01/18 Time of Evaluation: 09:10 - Subjective Subjective: PGY-1 Brook Garcia D.O. Neurology progress note for Dr. Bello service: Patient is seen and examined this morning. No events reported overnight. Patient is sleeping with her head covered by a blanket. She is easily awoken and states she is "good." She appears to say she wants to go home. Patient is noticeably calmer than prior days. She denies pain. Objective - Vital Signs/Intake and Output Vital Signs (last 24 hours): Temp Pulse Resp BP Pulse Ox 97.4 F L 65 18 144/89 99 01/31/18 17:32 02/01/18 06:00 01/31/18 17:32 01/31/18 17:44 01/31/18 17:32 - Medications Medications: Current Medications Acetaminophen (Tylenol 325mg Tab) 650 mg PO Q6H PRN PRN Reason: Bladder Spasm Last Admin: 01/31/18 23:14 Dose: 650 mg Docusate Sodium (Colace) 100 mg PO BID PRN PRN Reason: Constipation Last Admin: 01/31/18 10:05 Dose: 100 mg Levetiracetam 1,000 mg/ Sodium (Chloride) 110 mls @ 460 mls/hr IV Q12 SANDY Last Admin: 01/31/18 21:39 Dose: 460 mls/hr Sodium Chloride (Sodium Chloride 0.9%) 1,000 mls @ 100 mls/hr IV .Q10H SANDY Last Admin: 01/31/18 17:45 Dose: 100 mls/hr Lorazepam (Ativan) 1 mg IVP Q5M PRN; Protocol PRN Reason: Seizure activity Last Admin: 01/30/18 22:39 Dose: 1 mg Metoprolol Tartrate (Lopressor) 25 mg PO BID SANDY Last Admin: 01/31/18 17:44 Dose: 25 mg Pantoprazole Sodium (Protonix Inj) 40 mg IVP DAILY SANDY Last Admin: 01/31/18 10:00 Dose: 40 mg Quetiapine Fumarate (Seroquel) 25 mg PO HS SANDY PRN Reason: Protocol Last Admin: 01/31/18 21:39 Dose: 25 mg - Labs Labs: 01/31/18 06:00 01/31/18 06:00 PT 11.3 SECONDS (9.4-12.5) 01/28/18 18:29 INR 0.99 01/28/18 18:29 APTT 48.3 Seconds (25.1-36.5) H 01/28/18 18:29 - Constitutional Appears: No Acute Distress, Chronically Ill - Head Exam Additional comments: soft tissue L temporal-parietal area where skull removed, no open lesions - Eye Exam Eye Exam: EOMI, Normal appearance - ENT Exam ENT Exam: Mucous Membranes Moist, Normal Exam - Neck Exam Neck Exam: Normal Inspection - Respiratory Exam Respiratory Exam: Clear to Ausculation Bilateral, NORMAL BREATHING PATTERN - Cardiovascular Exam Cardiovascular Exam: REGULAR RHYTHM, +S1, +S2 - GI/Abdominal Exam GI & Abdominal Exam: Soft - Rectal Exam Rectal Exam: Deferred - Extremities Exam Extremities Exam: Normal Capillary Refill Additional comments: no significant change pt only moves LUE spontaneously and on command no movement of RUE or LEs observed RUE is somewhat contracted and rigid with passive movement - Neurological Exam Neurological Exam: Alert, Awake Neuro motor strength exam: Left Upper Extremity: 5, Right Upper Extremity: 0, Left Lower Extremity: 0, Right Lower Extremity: 0 Additional comments: no significant change oriented to person and place - Psychiatric Exam Psychiatric exam: Flat Affect Additional comments: not agitated - Skin Skin Exam: Dry, Intact, Normal Color, Warm Assessment and Plan - Assessment and Plan (Free Text) Assessment: Patient is a 57 yo female with an extensive past medical history, including hemorrhagic CVA s/p craniotomy and seizure disorder, who presented with status epilepticus. Ativan and Keppra failed to stop seizure activity before patient had to be intubated to protect her airway. She was successful extubated and off propofol <24 hrs later. She was initially managed in the ICU, and she is now downgraded to med/surg unit. She is on standing Keppra and Ativan as needed. Plan: Status epilepticus, resolved- pt on Keppra at home - CT head: no acute findings - LA 9.4->0.9; WBC 14.6->6.6 - Seizure precautions - Keppra 1000 mg PO BID - Keppra level pending- can follow-up as outpatient - Continue Ativan prn- please use only for seizure activity - Seroquel 25 mg PO QHS for agitation and mood - Replete K, Mg as needed - PT- home with services - OT - ST- aspiration precautions, finely chopped diet, thin liquids H/o hemorrhagic CVA s/p L temporal-parietal craniotomy - CT head: There has been an extensive left-sided craniotomy with removal of bone. There is encephalomalacia in the left basal ganglia and left lateral temporal lobe. There is dilatation of the left lateral ventricles. - Utilize helmet when pt at risk of compressing/injuring head - Primary team is obtaining records from [facility] [place] HTN, chronic- SBP 120s-150s - Management per primary team - Currently on metoprolol 5 IV q6hrs Neurology will sign off case at this time. Recommend patient be discharged with Keppra 1000 mg PO BID and follow-up Keppra level as an outpatient. Please re- consult if needed. Case discussed with attending, Dr. Thomas. <Dayne Thomas - Last Filed: 02/02/18 15:36> Objective - Vital Signs/Intake and Output Vital Signs (last 24 hours): Temp Pulse Resp BP Pulse Ox 97.7 F 71 20 154/100 H 98 02/02/18 06:00 02/02/18 06:00 02/02/18 06:00 02/02/18 06:00 02/02/18 06:00 - Labs Labs: 02/02/18 06:30 02/02/18 06:30 PT 11.3 SECONDS (9.4-12.5) 01/28/18 18:29 INR 0.99 01/28/18 18:29 APTT 48.3 Seconds (25.1-36.5) H 01/28/18 18:29 Attending/Attestation - Attestation I have personally seen and examined this patient.: Yes I have fully participated in the care of the patient.: Yes I have reviewed all pertinent clinical information, including history, physical exam and plan: Yes Notes (Text): 02/02/18 15:35 On my exam I noted the following: Alert, Awake Left Upper Extremity: 5, Right Upper Extremity: 0, Left Lower Extremity: 0, Right Lower Extremity: 0 Neurologically unchanged.
[2018-02-01 07:20] LABS: ALB/GLOB RATIO 1.1 (1.1-1.8); ALBUMIN 3.1 g/dL (3.0-4.8); ALT/SGPT 26 U/L (7-56); AST/SGOT 29 U/L (14-36); BLOOD UREA NITROGEN 4 mg/dL (7-21); CALCIUM 8.4 mg/dL (8.4-10.5); GFR NON-AFRICAN AMERICAN > 60
[2018-02-01] MEDS ORDERED: Magnesium 2 gm/50 ml NS 2 GM/50 ML BAG IVPB ONE (07:41)
[2018-02-01] MEDS ORDERED: Potassium Chloride 40 mEq/30 ml LIQ UD PO ONE (07:41)
[2018-02-01] MEDS: levETIRAcetam 1,000 MG in Sodium Chloride 0.9% 100 ML IV SCH (09:54)
[2018-02-01] MEDS: Sodium Chloride 0.9% 1,000 ML IV SCH (13:54)
--- NOTE | 2018-02-01 16:42 | CP.PCM.PN ---
<Noelle Walsh - Last Filed: 02/01/18 18:45> Subjective - Date & Time of Evaluation Date of Evaluation: 02/01/18 Time of Evaluation: 07:00 - Subjective Subjective: PGY-3 Progress note for Hospitalist service Patient seen and examined at bedside, no acute distress. Patient states that she has a headache and would like Tylenol. She denies pain any where else. Patient states that she is eating well. at bedside states that she is at her baseline mentation and that she has confusion. Objective - Vital Signs/Intake and Output Vital Signs (last 24 hours): Temp Pulse Resp BP Pulse Ox 97 F L 70 18 146/90 96 02/01/18 16:21 02/01/18 16:21 02/01/18 16:21 02/01/18 16:21 02/01/18 16:21 - Medications Medications: Current Medications Acetaminophen (Tylenol 325mg Tab) 650 mg PO Q6H PRN PRN Reason: Bladder Spasm Last Admin: 02/01/18 13:51 Dose: 650 mg Docusate Sodium (Colace) 100 mg PO BID PRN PRN Reason: Constipation Last Admin: 01/31/18 10:05 Dose: 100 mg Gemfibrozil (Lopid) 600 mg PO BID SANDY Sodium Chloride (Sodium Chloride 0.9%) 1,000 mls @ 100 mls/hr IV .Q10H SANDY Last Admin: 02/01/18 13:54 Dose: 100 mls/hr Levetiracetam (Keppra) 1,000 mg PO BID SANDY Lorazepam (Ativan) 1 mg IVP Q5M PRN; Protocol PRN Reason: Seizure activity Last Admin: 01/30/18 22:39 Dose: 1 mg Metoprolol Tartrate (Lopressor) 25 mg PO BID SANDY Last Admin: 02/01/18 10:03 Dose: 25 mg Pantoprazole Sodium (Protonix Inj) 40 mg IVP DAILY SANDY Last Admin: 02/01/18 10:04 Dose: 40 mg Quetiapine Fumarate (Seroquel) 25 mg PO HS SANDY PRN Reason: Protocol Last Admin: 01/31/18 21:39 Dose: 25 mg - Labs Labs: 02/01/18 06:50 02/01/18 06:50 PT 11.3 SECONDS (9.4-12.5) 01/28/18 18:29 INR 0.99 01/28/18 18:29 APTT 48.3 Seconds (25.1-36.5) H 01/28/18 18:29 Assessment and Plan - Assessment and Plan (Free Text) Assessment: 57 yo female with PMH of hemorrhagic CVA with left temporal and parietal craniotomy in 2018, PE, HTN, hyperlipidemia, anemia, HI, ischemic bowel s/p several abdominal surgeries, and opioid dependence presenting to the hospital for status epilepticus, requiring intubation, patient exubated. Plan: Status epilepticus - aspiration and seizure precautions - swallow eval: finely chopped thin liquid diet - PT- recommended home with services - will switch keppra to 1,000mg PO q12 - CT head showed extensive left sided craniotomy with removal of bone. There is encephalomalacia in the left basal ganglia and left temporal lobe. There is dilation of the left lateral ventricles. No acute findings - EEG final read pending - continue seroquel 25mg, ativan prn for agitation - keppra level is pending - Neuro on consult, Dr. Thomas History of hemorrhagic stroke - hemorrhagic CVA with left temporal and parietal craniotomy in July 2017 - not on anticoagulation at this time given history of hemorrhagic stroke in July 2017 Hypomagnesia - Mg is 1.3 - repleted today - will repeat in the AM Hypokalemia - potassium is 3.3, improved from yesterday - repleted today - will repeat in AM Anemia -likely 2/2 dilution, currently on NS @ 100 ml/hr - will discontinue fluids Hypertension - Currently on lopressor 25mg PO - continue to monitor Hyperlipidemia -holding home medications gemfibrozil and crestor at this time PPX with protonix and SCD dispo case manger is aware of PT recommendation of home with service, working on finding a service will remove PICC line before discharge Patient seen with, case discussed and reviewed with attending, Dr. Park <Katalina Park - Last Filed: 02/02/18 13:37> Objective - Vital Signs/Intake and Output Vital Signs (last 24 hours): Temp Pulse Resp BP Pulse Ox 97.7 F 71 20 154/100 H 98 02/02/18 06:00 02/02/18 06:00 02/02/18 06:00 02/02/18 06:00 02/02/18 06:00 - Medications Medications: Current Medications Acetaminophen (Tylenol 325mg Tab) 650 mg PO Q6H PRN PRN Reason: Bladder Spasm Last Admin: 02/02/18 09:19 Dose: 650 mg Docusate Sodium (Colace) 100 mg PO BID PRN PRN Reason: Constipation Last Admin: 01/31/18 10:05 Dose: 100 mg Gemfibrozil (Lopid) 600 mg PO BID [facility] Last Admin: 02/02/18 09:19 Dose: 600 mg Levetiracetam (Keppra) 1,000 mg PO BID [facility] Last Admin: 02/02/18 09:19 Dose: 1,000 mg Lorazepam (Ativan) 1 mg IVP Q5M PRN; Protocol PRN Reason: Seizure activity Last Admin: 01/30/18 22:39 Dose: 1 mg Metoprolol Tartrate (Lopressor) 25 mg PO BID [facility] Last Admin: 02/02/18 09:19 Dose: 25 mg Pantoprazole Sodium (Protonix Ec Tab) 40 mg PO 0600 [facility] Last Admin: 02/02/18 05:57 Dose: 40 mg Quetiapine Fumarate (Seroquel) 25 mg PO HS SANDY PRN Reason: Protocol Last Admin: 02/01/18 22:05 Dose: 25 mg - Labs Labs: 02/02/18 06:30 02/02/18 06:30 PT 11.3 SECONDS (9.4-12.5) 01/28/18 18:29 INR 0.99 01/28/18 18:29 APTT 48.3 Seconds (25.1-36.5) H 01/28/18 18:29 Attending/Attestation - Attestation I have personally seen and examined this patient.: Yes I have fully participated in the care of the patient.: Yes I have reviewed all pertinent clinical information, including history, physical exam and plan: Yes Notes (Text): ]Patient seen and examined by me at 10AM with resident 02/01/18. Case including HPI, physical exam, and assessment and plan discussed with resident. Agree with above with following additions/corrections. Patient is a 57 year old female with past medical history significant for HI, hypertension, hyperlipidemia, CHF, PE, anemia, seziures, and chronic pain that presented to the emergency room with status epilepticus. Patient is more talkative. States she is not feeling well today but is unsure why. Denies any chest pain or shortness of breath. No nausea, vomiting, or abdominal pain. Patient is afebrile. Patient is eating well. Denies any headaches today. Physical exam: General: Awake and alert, lying in bed in no acute distress HEENT: Left craniotomy scar noted. No scleral icterus. Oropharynx is pink. Positive dry mucous membranes. Neck is supple. Cardiovascular: Normal S1, S2. No murmurs, rubs, or gallops appreciated Pulmonary: Normal repsiratory effort. No rhonchi, rales or wheezing appreciated. Gastrointestinal: Soft, nondistended, nontender. Positive bowel sounds all 4 quadrants, no guarding. Musculoskeletal: Decreased range of motion on right (chronic from previous CVA) . No edema appreciated. Central nervous system: Awake and alert, following some commands, right sided hemiparesis (chronic from previous stroke). Dermatologic: Skin warm and dry Assessment and plan: Patient is a 57 year old female with past medical history significant for CAD, hypertension, hyperlipidemia, CHF, PE, anemia, seziures, and chronic pain that presented to the emergency room with status epilepticus. 1. Altered mental status. Improved. Patient with some confusion at baseline. Will follow-up with to see if patient is back to baseline. May have been acutely worsened secondary to seizures. Continue to monitor. Physical therapy recommends home with services. 2. Status epilepticus in a patient with history of seizures. Resolved. Continue Keppra 1000mg q12hrs. EEG read pending. Continue ativan prn seizure activity. CT head per radiologist showed there has been an extensive left sided craniotomy with removal of bone; there is encephalomalacia in the left basal ganglia and left lateral temporal lobe; there is dilatation of the left lateral ventricles,no acute findings. Neurology following, recommendations appreciated. 2. Leukocytosis. Resolved. May have been reactive. No current signs of infection. Urine culture with no growth. 3. Hypokalemia/hypomagnesemia. Continue to replete potassium and magnesium. Follow up repeat labs in AM 4. Hypertension. Continue home metoprolol 5. Elevated lactate. Secondary to seizure activity. Resolved. 6. Hypercholesterolemia. Continue gemfibrozil. Crestor not on formulary here. 7. History of hemorrhagic CVA s/p left temporal and pariental craniotomy. Stable. No anticoagulation. Home statin held for now 8. History of CHF/CAD. No acute issues. Continue metoprolol. 9. History of DVT/PE. No anticoagulation secondary to hemorrhagic stroke.
[2018-02-02] MEDS ORDERED: Pantoprazole 40 mg EC Tab PO SCH (06:00)
[2018-02-02 07:10] LABS: ALB/GLOB RATIO 1.1 (1.1-1.8); ALBUMIN 3.5 g/dL (3.0-4.8); ALT/SGPT 25 U/L (7-56); AST/SGOT 32 U/L (14-36); BLOOD UREA NITROGEN 12 mg/dL (7-21); CALCIUM 8.9 mg/dL (8.4-10.5); GFR NON-AFRICAN AMERICAN > 60
[2018-02-02 07:15] LABS: BASO # 0.05 K/mm3 (0.0-2.0); BASO % 0.9 % (0.0-3.0); EOS # 0.4 (0.0-0.7); EOS % 6.8 % (1.5-5.0); GRAN # 3.01 (1.4-6.5); GRAN % 52.4 % (50.0-68.0); HEMOGLOBIN 11.6 g/dL (12.0-16.0); LYMPH # 1.9 (1.2-3.4); LYMPH % 32.6 % (22.0-35.0); MEAN CELL VOLUME 84.2 fl (80.0-105.0); MEAN CORPUSCULAR HEMOGLOBIN 28.2 pg (25.0-35.0); MEAN CORPUSCULAR HGB CONC 33.4 g/dl (31.0-37.0); MEAN PLATELET VOLUME 8.8 fl (7.0-11.0); MONO # 0.4 (0.1-0.6); MONO % 7.3 % (1.0-6.0); RBC 4.12 10^6/uL (3.5-6.1); RED CELL DISTRIBUTION WIDTH 13.7 % (11.5-14.5); WHITE BLOOD COUNT 5.7 10^3/ul (4.5-11.0)
[2018-02-02 08:04] VITALS: BP 154/100; PULSE 71; RESP 20; TEMP 97.7; O2SAT 98
--- NOTE | 2018-02-02 20:08 | CP.PCM.DIS ---
Provider - Provider Date of Admission: 01/28/18 22:31 Attending physician: Katalina Park DO Primary care physician: NO PRIMARY CARE PROVIDER Consults: Dr. Thomas, neurology Time Spent in preparation of Discharge (in minutes): 35 Hospital Course - Lab Results Lab Results: Micro Results 01/29/18 02:15 Naris MRSA Culture (Admit) - Final MRSA NOT DETECTED 01/28/18 23:10 Urine,Clean Catch Urine Culture - Final No Growth (<1,000 CFU/ML) Most Recent Lab Values WBC 5.7 10^3/ul (4.5-11.0) 02/02/18 06:30 RBC 4.12 10^6/uL (3.5-6.1) 02/02/18 06:30 Hgb 11.6 g/dL (12.0-16.0) L 02/02/18 06:30 Hct 34.7 % (36.0-48.0) L 02/02/18 06:30 MCV 84.2 fl (80.0-105.0) 02/02/18 06:30 MCH 28.2 pg (25.0-35.0) 02/02/18 06:30 MCHC 33.4 g/dl (31.0-37.0) 02/02/18 06:30 RDW 13.7 % (11.5-14.5) 02/02/18 06:30 Plt Count 450 10^3/uL (120.0-450.0) 02/02/18 06:30 MPV 8.8 fl (7.0-11.0) 02/02/18 06:30 Gran % 52.4 % (50.0-68.0) 02/02/18 06:30 Lymph % (Auto) 32.6 % (22.0-35.0) 02/02/18 06:30 [place] % (Auto) 7.3 % (1.0-6.0) H 02/02/18 06:30 Eos % (Auto) 6.8 % (1.5-5.0) H 02/02/18 06:30 Baso % (Auto) 0.9 % (0.0-3.0) 02/02/18 06:30 Gran # 3.01 (1.4-6.5) 02/02/18 06:30 Lymph # (Auto) 1.9 (1.2-3.4) 02/02/18 06:30 [place] # (Auto) 0.4 (0.1-0.6) 02/02/18 06:30 Eos # (Auto) 0.4 (0.0-0.7) 02/02/18 06:30 Baso # (Auto) 0.05 K/mm3 (0.0-2.0) 02/02/18 06:30 PT 11.3 SECONDS (9.4-12.5) 01/28/18 18:29 INR 0.99 01/28/18 18:29 APTT 48.3 Seconds (25.1-36.5) H 01/28/18 18:29 pCO2 35 mm/Hg (35-45) 01/28/18 21:05 pO2 44 mm/Hg (30-55) 01/28/18 22:46 HCO3 20.2 mmol/L (21-28) L 01/28/18 21:05 ABG pH 7.37 (7.35-7.45) 01/28/18 21:05 ABG Total CO2 21.3 mmol.L (22-28) L 01/28/18 21:05 ABG O2 Saturation 100.4 % (95-98) H 01/28/18 21:05 ABG O2 Content 17.4 ML/dl (15-23) 01/28/18 21:05 ABG Base Excess -4.4 mmol/L (-2.0-3.0) L 01/28/18 21:05 ABG Hemoglobin 12.3 g/dL (11.7-17.4) 01/28/18 21:05 ABG Carboxyhemoglobin 1.4 % (0.5-1.5) 01/28/18 21:05 POC ABG HHb (Measured) -0.4 % (0-5) L 01/28/18 21:05 ABG Methemoglobin 1.0 % (0.0-3.0) 01/28/18 21:05 ABG O2 Capacity 17.3 mL/dl (16-24) 01/28/18 21:05 VBG pH 7.33 (7.32-7.43) 01/28/18 22:46 VBG pCO2 49.0 (40-60) 01/28/18 22:46 VBG HCO3 25.8 mmol/l (21-28) 01/28/18 22:46 VBG Total CO2 27.3 mmol.L (22-28) 01/28/18 22:46 VBG O2 Sat (Calc) 83.9 % (40-65) H 01/28/18 22:46 VBG Base Excess -0.7 mmol/L (0.0-2.0) L 01/28/18 22:46 VBG Potassium 3.0 mmol/L (3.6-5.2) L 01/28/18 22:46 Hgb O2 Saturation 98.0 % (95.0-98.0) 01/28/18 21:05 Sodium 141.0 mmol/L (132-148) 01/28/18 22:46 Chloride 106.0 mmol/L (98-107) 01/28/18 22:46 Glucose 99 mg/dl (65-105) 01/28/18 22:46 Lactate 0.9 mmol/L (0.7-2.1) 01/28/18 22:46 FiO2 21.0 % 01/28/18 22:46 Sodium 142 mmol/L (132-148) 02/02/18 06:30 Potassium 3.7 mmol/L (3.6-5.0) 02/02/18 06:30 Chloride 106 mmol/L (98-107) 02/02/18 06:30 Carbon Dioxide 28 mmol/L (21-33) 02/02/18 06:30 Anion Gap 12 (10-20) 02/02/18 06:30 BUN 12 mg/dL (7-21) 02/02/18 06:30 Creatinine 0.7 mg/dl (0.7-1.2) 02/02/18 06:30 Est GFR ( Amer) > 60 02/02/18 06:30 Est GFR (Non-Af Amer) > 60 02/02/18 06:30 Random Glucose 107 mg/dL (70-110) 02/02/18 06:30 Calcium 8.9 mg/dL (8.4-10.5) 02/02/18 06:30 Phosphorus 3.0 mg/dL (2.5-4.5) 02/02/18 06:30 Magnesium 1.7 mg/dL (1.7-2.2) 02/02/18 06:30 Total Bilirubin 0.3 mg/dL (0.2-1.3) 02/02/18 06:30 AST 32 U/L (14-36) 02/02/18 06:30 ALT 25 U/L (7-56) 02/02/18 06:30 Alkaline Phosphatase 79 U/L (38-126) 02/02/18 06:30 Total Protein 6.6 g/dL (5.8-8.3) 02/02/18 06:30 Albumin 3.5 g/dL (3.0-4.8) 02/02/18 06:30 Globulin 3.1 gm/dL 02/02/18 06:30 Albumin/Globulin Ratio 1.1 (1.1-1.8) 02/02/18 06:30 TSH 3rd Generation 1.88 mIU/mL (0.46-4.68) 01/28/18 18:29 Venous Blood Potassium 3.0 mmol/L (3.6-5.2) L 01/28/18 22:46 Urine Color Yellow (YELLOW) 01/28/18 18:25 Urine Appearance Clear (CLEAR) 01/28/18 18:25 Urine pH 6.5 (4.7-8.0) 01/28/18 18:25 Ur Specific [place] 1.025 (1.005-1.035) 01/28/18 18:25 Urine Protein 100 mg/dL (<30 mg/dL) H 01/28/18 18:25 Urine Glucose (UA) Negative mg/dL (NEGATIVE) 01/28/18 18:25 Urine Ketones Negative mg/dL (NEGATIVE) 01/28/18 18:25 Urine Blood Negative (NEGATIVE) 01/28/18 18:25 Urine Nitrate Negative (NEGATIVE) 01/28/18 18:25 Urine Bilirubin Negative (NEGATIVE) 01/28/18 18:25 Urine Urobilinogen 0.2 E.U./dL (<1 E.U./dL) 01/28/18 18:25 Ur Leukocyte Esterase Negative Micha/uL (NEGATIVE) 01/28/18 18:25 Urine RBC 0 - 2 /hpf (0-2) 01/28/18 18:25 Urine WBC 5 - 10 /hpf (0-6) 01/28/18 18:25 Ur Epithelial Cells 3 - 4 /hpf (0-5) 01/28/18 18:25 Urine Bacteria Mod (NEG) 01/28/18 18:25 Valproic Acid < 10 ug/mL (50.0-100.0) L 01/28/18 18:29 - Hospital Course Hospital Course: This is a 57 year old female with PMH of LA, HTN, HLD, CHF, PE, anemia, seizures and chronic pain who was brought into the emergency department via EMS s/p seizure on 01/29/18. At the ED she was given multiple doses of ativan and keppra, but then she began to become hypoxic so the decision was made to intubate the pt to protect her airway. Further pt hx was gathered by , who states that she has never had seizures before. He states that she recently had a hemorrhagic stroke in July of 2017 and was then taken to [facility] [place] where a left temporal and parietal crainotomy was performed to relieve the swelling and pressure accumulating from the bleed. He states that this afternoon she was eating when all of a sudden she began to have seizures. She fell and was noted to have some foaming in the mouth that seemed to be mixed with blood, but no bladder or bowel incontinence was noted. He then called the ambulance which transported her to [facility] ED. On admission, lactate was noted to be 9.4. CT head showed extensive left sided craniotomy with removal of bone. There is encephalomalacia in the left basal ganglia and left temporal lobe. There is dilation of the left lateral ventricles. No acute findings noted. She received keppra 1,000mg keppra IV q12 during her hospital stay . She was extubated without complication on the second day of her hospital stay and subsequently transferred out of the ICU. Patient was put on seroquel 25mg and ativan prn for agitation. Lactate reduced to 0.9 on her third day. She was found to have low magnesium and potassium which were appropriately replaced. Patient noted to be in good spirits on 02/02/18 and desire to return home. She agreed to follow up outpatient with neurology for monitoring and final read of EEG. Discharge Exam - Head Exam Head Exam: ATRAUMATIC - Eye Exam Eye Exam: EOMI Pupil Exam: PERRL - ENT Exam ENT Exam: Mucous Membranes Moist - Respiratory Exam Respiratory Exam: NORMAL BREATHING PATTERN. absent: Rhonchi, Wheezes, Respiratory Distress - Cardiovascular Exam Cardiovascular Exam: RRR, +S1, +S2 - GI/Abdominal Exam GI & Abdominal Exam: Normal Bowel Sounds. absent: Distended, Firm - Extremities Exam Additional comments: right side weakness from residual stroke symptoms - Back Exam Back exam: NORMAL INSPECTION - Neurological Exam Neurological exam: Alert, Altered - Skin Skin Exam: Normal Color, Warm Discharge Plan - Discharge Medications Prescriptions: levETIRAcetam [Keppra] 1,000 mg PO BID #60 tab - Follow Up Plan Condition: FAIR Disposition: HOME/ ROUTINE Instructions: Seizures, Adult (DC), Epilepsy (DC), Epilepsy (GEN) Additional Instructions: Follow up with [facility] within 3-5 days to establish with a primary care doctor, please call [phone] to make an appointment. Follow up with your neurologist, Dr. Thomas within 3-5 days to follow up on keppra levels Continue Keppra 1000mg twice a day Do not exceed 3 grams of tylenol in a 24 hour period Please return to ED if symptoms return Please continue your home medications Referrals: [facility] [Outside] Dayne Thomas MD [Staff Provider] -
== END 2018-02-02 14:59 | disposition home or self-care (01) | DRG 101 ==
LOC: ED 17:54 → ERH 22:31 → CCU 01-29 02:17 → 3RSO 01-30 20:36
PROVIDERS: ADMIT Internal Medicine; ATTEND Hospitalist
PROC: 5A1935Z Respiratory Ventilation, Less than 24 Consecutive Hours (ICD-10-PCS; principal; 2018-01-29)
PROC: 0BH17EZ Insertion of Endotracheal Airway into Trachea, Via Natural or Artificial Opening (ICD-10-PCS; 2018-01-29)
DX: G40.901 Epilepsy, unspecified, not intractable, with status epilepticus (principal); I69.251 Hemiplegia and hemiparesis following other nontraumatic intracranial hemorrhage affecting right dominant side; F11.20 Opioid dependence, uncomplicated; N39.0 Urinary tract infection, site not specified; R09.02 Hypoxemia; I11.0 Hypertensive heart disease with heart failure; I50.9 Heart failure, unspecified; I25.10 Atherosclerotic heart disease of native coronary artery without angina pectoris; J44.9 Chronic obstructive pulmonary disease, unspecified; D64.9 Anemia, unspecified; M51.26 Other intervertebral disc displacement, lumbar region; E87.6 Hypokalemia; E83.42 Hypomagnesemia; G93.89 Other specified disorders of brain; G89.29 Other chronic pain; E78.5 Hyperlipidemia, unspecified; G43.909 Migraine, unspecified, not intractable, without status migrainosus; E78.00 Pure hypercholesterolemia, unspecified; Z86.711 Personal history of pulmonary embolism; I25.2 Old myocardial infarction; Z79.82 Long term (current) use of aspirin; Z86.718 Personal history of other venous thrombosis and embolism; Z93.3 Colostomy status

== ENCOUNTER 2018-02-13 10:38 | Inpatient (IN) | payer OTHER ==
--- NOTE | 2018-02-13 10:50 | ED PDOC ---
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 As per EMS, the son stated the patient was talking and then suddenly stopped talking a half hour prior to arrival and began starring out into space. HPI and ROS limited due to patient's state of AMS. Time/Duration: Prior to Arrival, 1/2 hour Symptom Onset: Sudden Symptom Course: Unchanged Activities at Onset: Light Context: Home Past Medical History - Provider Review Nursing Documentation Reviewed: Yes - Infectious Disease Hx of Infectious Diseases: None - Tetanus Immunization Tetanus Immunization: Unknown - Cardiac Hx Cardiac Disorders: Yes Hx Congestive Heart Failure: Yes Hx Hypertension: Yes - Pulmonary Hx Chronic Obstructive Pulmonary Disease (COPD): Yes - Neurological HX Cerebrovascular Accident: Yes - HEENT Hx HEENT Disorder: No Hx Epistaxis: Yes - Renal Hx Renal Disorder: No - Endocrine/Metabolic Hx Endocrine Disorders: No - Hematological/Oncological Hx Blood Disorders: No Hx Anemia: Yes - Integumentary Hx Dermatological Disorder: No Other/Comment: 2 brown skin discolorations to left ankle - Musculoskeletal/Rheumatological Hx Musculoskeletal Disorders: No Hx Falls: No - Gastrointestinal Hx Gastrointestinal Disorders: No Hx Ileostomy: Yes Other/Comment: Necrotizing fascites - Genitourinary/Gynecological Hx Genitourinary Disorders: No Hx Urinary Tract Infection: No - Psychiatric Hx Psychophysiologic Disorder: Yes (Opiate dependent) Hx Substance Use: No - Surgical History Hx Appendectomy: Yes Other/Comment: Illeostomy , skull surgery pt using helmet - Anesthesia Hx Anesthesia Reactions: No Hx Malignant Hyperthermia: No Family/Social History - Physician Review Nursing Documentation Reviewed: Yes Family/Social History: No Known Family HX Smoking Status: Never Smoked Hx Alcohol Use: No Hx Substance Use: No Allergies/Home Meds Allergies/Adverse Reactions: Allergies caffeine Adverse Reaction (Mild, Verified 05/17/16 08:45) DIZZINESS pt complains of palpitations after having caffeine Home Medications: Home Meds Medication Instructions Recorded Confirmed Aspirin [Ecotrin] 81 mg PO DAILY 01/28/18 01/28/18 Gemfibrozil 600 mg PO BID 01/28/18 01/28/18 Metoprolol Tartrate [Lopressor] 25 mg PO BID 01/28/18 01/28/18 Pantoprazole [Protonix EC Tab] 40 mg PO DAILY 01/28/18 01/28/18 Rosuvastatin Calcium [Crestor] 20 mg DAILY 01/28/18 01/28/18 amLODIPine [Norvasc] 10 mg PO DAILY 01/28/18 01/28/18 Review of Systems - Physician Review All systems were reviewed & negative as marked: Yes - Review of Systems Systems not reviewed;Unavailable: Altered Mental Status Physical Exam Vital Signs Reviewed: Yes Vital Signs Temp Pulse Resp BP Pulse Ox 02/13/18 10:49 98.2 F 83 18 163/79 H 100 Temperature: Afebrile Blood Pressure: Hypertensive Pulse: Regular Respiratory Rate: Normal Appearance: Positive for: Well-Appearing, Non-Toxic, Comfortable Pain Distress: None Finger Stick Blood Glucose: 108 - Systems Exam Head: Present: Atraumatic Pupils: Present: PERRL Extroacular Muscles: Present: EOMI Conjunctiva: Present: Normal Mouth: Present: Moist Mucous Membranes Pharnyx: Present: Normal Nose (External): Present: Atraumatic Nose (Internal): Present: Normal Inspection Neck: Present: Normal Range of Motion Respiratory/Chest: Present: Clear to Auscultation, Good Air Exchange. No: Respiratory Distress, Accessory Muscle Use Cardiovascular: Present: Regular Rate and Rhythm Abdomen: Present: Normal Bowel Sounds. No: Tenderness, Distention, Peritoneal Signs Back: Present: Normal Inspection Upper Extremity: Present: Normal Inspection Lower Extremity: Present: Normal Inspection Neurological: No: Speech Normal (mute), Motor Func Grossly Intact (0/5 upper and lower), Normal Sensory Function (does not respond to painful stimuli) Medical Decision Making ED Course and Treatment: 02/13/18 10:50 Impression: 57 year old female presents for altered mental status half hour prior to arrival. Differential Diagnosis included but are not limited to: Seizure vs CVA Plan: -- Labs -- CT Head w/o Contrast Code stroke -- EKG -- Stroke Team Consult -- Brain w/o contrast MRI -- IV Fluids -- Reassess and disposition Prior Visits: Notes and results from previous visits were reviewed. Progress Notes: 02/13/18 10: 56 EKG shows Sinus Rhythm at 83 BPM with t-wave inversions on the anterior lateral lead. Interpreted by me. 01/28/18 is similar but this EKG has more biphasic TWI. 02/13/18 10:50 Code Stroke called. Case discussed with Dr. Luu who recommends Depakote 1000mg IV and an MRI. PROCEDURE: CT HEAD WITHOUT CONTRAST. Dictator : Dimitry Young MD Report Date : 02/13/2018 11:08:40 BRAIN: No mass effect or edema. A large portion of the left side of the skull has been removed. There is encephalomalacia in the left thalamus and basal ganglia. There is mild dilatation of the left lateral ventricle. There are no acute intracranial findings. 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 No acute intracranial findings. 02/13/18 11:13 Case discussed with patient's who is aware with the plan and provided consent for patient to have an MRI done. 02/13/18 11:24 Patient is now more alert and is talking. She is saying her name and that she's cold. PROCEDURE: Chest X-ray Dictator : Dimitry Young MD Report Date : 02/13/2018 11:24:04 IMPRESSION: No active disease. 02/13/18 11:34 Patient is now AAOx2. States that she doesn't know what happen. Asked for her . She is moving her left arm and lower leg. 02/13/18 12:51 Patient is now AAOx2. She is moving her left arm and leg at baseline. 5/5 MS left side. Left side sensation intact. As per this is her baseline. PROCEDURE: MRI BRAIN WITHOUT CONTRAST Dictator : Dimitry Young MD Report Date : 02/13/2018 13:10:00 IMPRESSION: No acute intracranial findings 02/13/18 13:[address] Luu, Neurology, again who agreed to admit this patient for Seizures. Less likely TIA. Case discussed with Dr. Grossman who is aware and agrees with the plan. Accepts patient into hospitalist service. - Critical Care Critical Care Minutes: 30 minutes - Lab Interpretations Lab Results: 02/13/18 11:24 02/13/18 11:24 Lab Results 02/13/18 11:24: Sodium 142, Potassium 4.4, Chloride 104, Carbon Dioxide 25, Anion Gap 18, BUN 26 H, Creatinine 1.0, Est GFR ( Amer) > 60, Est GFR ( Non-Af Amer) 58, Random Glucose 110, Calcium 10.5, Total Bilirubin 0.2, AST 33, ALT 16, Alkaline Phosphatase 163 H D, Troponin I 0.04, Total Protein 8.7 H, Albumin 4.7, Globulin 4.0, Albumin/Globulin Ratio 1.2, Triglycerides 73, Cholesterol 140, LDL Cholesterol Direct 32, HDL Cholesterol 74 H 02/13/18 11:24: PT 11.1, INR 0.97, APTT 41.2 H 02/13/18 11:24: WBC 7.1 D, RBC 4.90, Hgb 14.3 D, Hct 42.6, MCV 86.9, MCH 29.2 , MCHC 33.6, RDW 14.2, Plt Count 520 H, MPV 9.0, Gran % 49.6 L, Lymph % (Auto) 35.8 H, Clayton % (Auto) 9.0 H, Eos % (Auto) 4.3, Baso % (Auto) 1.3, Gran # 3.54, Lymph # (Auto) 2.6, Clayton # (Auto) 0.6, Eos # (Auto) 0.3, Baso # (Auto) 0.09 I have reviewed the lab results: Yes - RAD Interpretation Radiology Orders: 02/13/18 10:50 HEAD W/O (CODE STROKE) [CT] Stat CHEST PORTABLE [RAD] Stat 02/13/18 10:55 BRAIN WITHOUT CONTRAST [MRI] Stat - EKG Interpretation Interpreted by ED Physician: Yes Type: 12 lead EKG - Medication Orders Current Medication Orders: Sodium Chloride (Sodium Chloride 0.9%) 1,000 mls @ 100 mls/hr IV .Q10H SANDY Last Admin: 02/13/18 11:49 Dose: 100 mls/hr eMAR Start Stop Document 02/13/18 11:49 HI (Rec: 02/13/18 11:49 [facility] [place]-[id number]) Intravenous Solution Start Date 02/13/18 Start Time 11:49 Discontinued Medications Aspirin (Aspirin Supp) 300 mg RC STAT STA Stop: 02/13/18 11:44 Last Admin: 02/13/18 12:45 Dose: 300 mg NIHSS Scale (Brea) Time Performed: 10:41 - How Severe is the Stoke Baseline Level of Consciousness: 0=Alert LOC to Questions: 0=Both comments correct LOC to commands: 1=Obeys one correctly Best Gaze: 0=Normal Visual: 3=Bilateral Facial: 0=Normal Motor Arm - Left: 4=No movement Motor Arm - Right: 4=No movement Motor Leg - Left: 4=No movement Motor Leg - Right: 4=No movement Limb Ataxia: 2=Present both Sensory: 2=Severe to total loss Best Language: 3=Mute Dysarthia: 2=Severe, near unintelligible or worse Extinction & Inattention (Neglect): 2=Profound neglect(does not recognize own hand or orients to one side) Score: 31 Risk Level: Severe Stroke Risk NIHSS Scale(Brea)3 Time Performed: 01:14 - How Severe is the Stoke Baseline Level of Consciousness: 0=Alert LOC to Questions: 0=Both comments correct LOC to commands: 0=Obeys both correctly Best Gaze: 0=Normal Visual: 0=No visual loss Facial: 0=Normal Motor Arm - Left: 0=No drift Motor Arm - Right: 4=No movement Motor Leg - Left: 0=No drift Motor Leg - Right: 4=No movement Limb Ataxia: 2=Present both Sensory: 1=Mild to moderate loss Best Language: 0=No aphasia Dysarthia: 0=Normal articulation Extinction & Inattention (Neglect): 0=Normal, no object Score: 11 Risk Level: Mod Stroke Risk rTPA Inclusion/Exclusion - Refusal of Treatment Patient Refused Treatment: No - Inclusion Criteria for Altepase Patient is 18 years or Older: Yes The Clinical Diagnosis of Ischemic Stroke That is Causing a Potentially Disabling Neurological Deficit: No Time of Onset is Well Established to be Less Than 270 Minute Before Treatment Would Begin: Yes Risk/Benefit Discussed With Patient/Family Member Present: No - Warning to TPA With Conditions Condition: Rapid Improvement NIHSS Stroke Scale 3 - Date/Time Evaluation Performed Date Performed: 02/13/18 Time Performed: 11:41 When Was NIHSS Performed: Re-evaluation - How Severe is the Stroke Level of Consciousness: 0=Alert LOC to Questions: 0=Both comments correct LOC to commands: 0=Obeys both correctly Best Gaze: 0=Normal Visual: 0=No visual loss Facial: 0=Normal Motor Arm - Left: 2=Falls before 10 sec Motor Arm - Right: 4=No movement Motor Leg - Left: 2=Falls before 5 sec Motor Leg - Right: 4=No movement Limb Ataxia: 2=Present both Sensory: 1=Mild to moderate loss Best Language: 0=No aphasia Dysarthia: 1=Mild to moderate slurring Extinction & Inattention (Neglect): 0=Normal, no object Score: 16 - Scribe Statement The provider has reviewed the documentation as recorded by the Valdemar Burrell Provider Scribe Attestation: All medical record entries made by the Scribe were at my direction and personally dictated by me. I have reviewed the chart and agree that the record accurately reflects my personal performance of the history, physical exam, medical decision making, and the department course for this patient. I have also personally directed, reviewed, and agree with the discharge instructions and disposition. Disposition/Present on Arrival - Present on Arrival Any Indicators Present on Arrival: Yes History of DVT/PE: No History of Uncontrolled Diabetes: No Urinary Catheter: Yes History of Decub. Ulcer: No History Surgical Site Infection Following: None - Disposition Have Diagnosis and Disposition been Completed?: Yes Diagnosis: Seizure, TIA (transient ischemic attack) Disposition: HOSPITALIZED Disposition Time: 13:29 Patient Plan: Admission, Observation Patient Problems: Current Active Problems Problem Status Onset Seizure Acute TIA (transient ischemic attack) Acute Condition: FAIR Referrals: PCP,NO [Primary Care Provider] - Follow up with primary Forms: [employer] (Georgian)
--- NOTE | 2018-02-13 11:02 | CP.PCM.CON ---
<Reg Humphreys Christian - Last Filed: 02/13/18 18:20> Meds Allergies/Adverse Reactions: Allergies Allergy/AdvReac Type Severity Reaction Status Date / Time caffeine AdvReac Mild DIZZINESS Verified 05/17/16 08:45 - Medications Medications: Current Medications Amlodipine Besylate (Norvasc) 10 mg PO DAILY [facility] Aspirin (Ecotrin) 81 mg PO DAILY [facility] Atorvastatin Calcium (Lipitor) 80 mg PO HS SANDY Gemfibrozil (Lopid) 600 mg PO BID [facility] Sodium Chloride (Sodium Chloride 0.9%) 1,000 mls @ 100 mls/hr IV .Q10H SANDY Last Admin: 02/13/18 11:49 Dose: 100 mls/hr Metoprolol Tartrate (Lopressor) 25 mg PO BID [facility] Last Admin: 02/13/18 17:22 Dose: 25 mg Pantoprazole Sodium (Protonix Ec Tab) 40 mg PO DAILY [facility] Results - Vital Signs Recent Vital Signs: Last Vital Signs Temp 99.5 F 02/13/18 17:59 Pulse 102 H 02/13/18 17:59 Resp 20 02/13/18 17:59 BP 138/88 02/13/18 17:59 Pulse Ox 96 02/13/18 17:59 - Labs Result Diagrams: 02/13/18 11:24 02/13/18 11:24 Labs: Laboratory Results - last 24 hr 02/13/18 02/13/18 16:25 16:25 Troponin I 0.04 BBK History Checked Patient has bt <Gordo Luu - Last Filed: 02/14/18 11:16> History of Present Illness - History of Present Illness History of Present Illness: 57 yr old woman with pmh of left parietal and temporal hemicraniectomy, skull plate removed, last admitted on 01/28/18, who is usually on Keppra 750 mg bid at home, not sure of compliance now, had status last admission. Patient was not thought to be a TPA candidate because the symptoms resolved. NIH stroke scale : 0 ROS: negative for 12 points. 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 Patient gives poor effort on theneurological examination. +2 dtr ul and ll bl. Toes downgoing. no clonus. Past Patient History - Infectious Disease Hx of Infectious Diseases: None - Tetanus Immunizations Tetanus Immunization: Unknown - Past Medical History & Family History Past Medical History?: Yes - Past Social History Smoking Status: Never Smoked - CARDIAC Hx Cardiac Disorders: Yes Hx Congestive Heart Failure: Yes Hx Hypertension: Yes - PULMONARY Hx Chronic Obstructive Pulmonary Disease (COPD): Yes - NEUROLOGICAL HX Cerebrovascular Accident: Yes - HEENT Hx HEENT Problems: No Hx Epistaxis: Yes - RENAL Hx Chronic Kidney Disease: No - ENDOCRINE/METABOLIC Hx Endocrine Disorders: No - HEMATOLOGICAL/ONCOLOGICAL Hx Blood Disorders: No Hx Anemia: Yes - INTEGUMENTARY Hx Dermatological Problems: No Other/Comment: 2 brown skin discolorations to left ankle - MUSCULOSKELETAL/RHEUMATOLOGICAL Hx Musculoskeletal Disorders: No Hx Falls: No - GASTROINTESTINAL Hx Gastrointestinal Disorders: No Hx Ileostomy: Yes Other/Comment: Necrotizing fascites - GENITOURINARY/GYNECOLOGICAL Hx Genitourinary Disorders: No Hx Urinary Tract Infection: No - PSYCHIATRIC Hx Psychophysiologic Disorder: Yes (Opiate dependent) Hx Substance Use: No - SURGICAL HISTORY Hx Appendectomy: Yes Other/Comment: Illeostomy , skull surgery pt using helmet - ANESTHESIA Hx Anesthesia Reactions: No Hx Malignant Hyperthermia: No Meds - Medications Medications: Current Medications Sodium Chloride (Sodium Chloride 0.9%) 1,000 mls @ 100 mls/hr IV .Q10H SANDY Results - Vital Signs Recent Vital Signs: Last Vital Signs Temp Pulse 83 02/13/18 10:49 Resp 18 02/13/18 10:49 BP 163/79 H 02/13/18 10:49 Pulse Ox 100 02/13/18 10:49 - Labs Result Diagrams: 02/14/18 09:00 02/14/18 09:00 Assessment & Plan - Assessment and Plan (Free Text) Assessment: 57 yr old woman with multiple medical problems, who is s/p hemicraniectomy, now with possible seizure, and questionable stroke who is back to her baseline. NIH stroke scale is now 6 and is at her baseline. There is no weakness of her left arm or leg, and patient is alert. She is therefore, not a TPA candidate. Plan: 1. Continue on depakote 500 mg iv bid 2. EEg 3. ECHO, CTA head and neck code stroke protocol. 4. Follow up MRI brain results. Thank you for this consult Dr.Gautami Luu Neurology
[2018-02-13 11:05] VITALS: BMI 22.7
--- NOTE | 2018-02-13 11:10 | CT ---
Date of service: 02/13/2018 PROCEDURE: CT HEAD WITHOUT CONTRAST. HISTORY: Code Stroke COMPARISON: 01/28/2018 TECHNIQUE: Axial computed tomography images were obtained through the head/brain without intravenous contrast. Radiation dose: Total exam DLP = 752 mGy-cm. This CT exam was performed using one or more of the following dose reduction techniques: Automated exposure control, adjustment of the mA and/or kV according to patient size, and/or use of iterative reconstruction technique. FINDINGS: HEMORRHAGE: No intracranial hemorrhage. BRAIN: No mass effect or edema. A large portion of the left side of the skull has been removed. There is encephalomalacia in the left thalamus and basal ganglia. There is mild dilatation of the left lateral ventricle. There are no acute intracranial findings. VENTRICLES: Unremarkable. No hydrocephalus. CALVARIUM: Unremarkable. PARANASAL SINUSES: There is fluid in the right maxillary sinus. MASTOID AIR CELLS: Unremarkable as visualized. No inflammatory changes. OTHER FINDINGS: None. 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 No acute intracranial findings.
--- NOTE | 2018-02-13 11:25 | RAD ---
Date of service: 02/13/2018 HISTORY: Code Stroke COMPARISON: 01/30/2018 FINDINGS: LUNGS: No active pulmonary disease. PLEURA: No significant pleural effusion identified, no pneumothorax apparent. CARDIOVASCULAR: Normal. OSSEOUS STRUCTURES: No significant abnormalities. VISUALIZED UPPER ABDOMEN: Normal. OTHER FINDINGS: None. IMPRESSION: No active disease.
[2018-02-13 11:38] LABS: BASO # 0.09 K/mm3 (0.0-2.0); BASO % 1.3 % (0.0-3.0); EOS # 0.3 (0.0-0.7); EOS % 4.3 % (1.5-5.0); GRAN # 3.54 (1.4-6.5); GRAN % 49.6 % (50.0-68.0); HEMOGLOBIN 14.3 g/dL (12.0-16.0); LYMPH # 2.6 (1.2-3.4); LYMPH % 35.8 % (22.0-35.0); MEAN CELL VOLUME 86.9 fl (80.0-105.0); MEAN CORPUSCULAR HEMOGLOBIN 29.2 pg (25.0-35.0); MEAN CORPUSCULAR HGB CONC 33.6 g/dl (31.0-37.0); MONO # 0.6 (0.1-0.6); RBC 4.9 10^6/uL (3.5-6.1); RED CELL DISTRIBUTION WIDTH 14.2 % (11.5-14.5); WHITE BLOOD COUNT 7.1 10^3/ul (4.5-11.0)
[2018-02-13 11:46] LABS: INR 0.97; PARTIAL THROMBOPLASTIN TIME 41.2 Seconds (25.1-36.5); PROTHROMBIN TIME 11.1 SECONDS (9.4-12.5)
[2018-02-13] MEDS: Sodium Chloride 0.9% 1,000 ML IV SCH ×2 (11:49→21:30)
[2018-02-13 11:52] LABS: ALB/GLOB RATIO 1.2 (1.1-1.8); ALBUMIN 4.7 g/dL (3.0-4.8); ALT/SGPT 16 U/L (7-56); AST/SGOT 33 U/L (14-36); BLOOD UREA NITROGEN 26 mg/dL (7-21); CALCIUM 10.5 mg/dL (8.4-10.5); GFR NON-AFRICAN AMERICAN 58; HDL CHOLESTEROL 74 mg/dL (29-60)
[2018-02-13 12:00] LABS: TROPONIN I 0.04 ng/mL
[2018-02-13 12:01] LABS: LDL CHOLESTEROL 32 mg/dL (0-129)
--- NOTE | 2018-02-13 12:15 | CARD ---
APPROVED REPORT Date of service: 02/13/2018 EKG Measurement Heart [id number] <Conclusion> Poor data quality, interpretation may be adversely affected Normal sinus rhythm Right ventricular hypertrophy ST-T Changes. Prominent P 2,3.AVF. Abnormal ECG
--- NOTE | 2018-02-13 13:11 | MRI ---
Date of service: 02/13/2018 PROCEDURE: MRI BRAIN WITHOUT CONTRAST HISTORY: r/o cva COMPARISON: None available. TECHNIQUE: Multiplanar, multisequence MR images of the brain were obtained without intravenous contrast enhancement. FINDINGS: HEMORRHAGE: There is hemosiderin deposition in the left thalamus and basal ganglia measuring 14 x 27 mm consistent with old hemorrhage. DWI: No evidence of an acute or early subacute infarction. BRAIN PARENCHYMA: No mass effect or edema. There is some volume loss in the left hemisphere. VENTRICLES: Unremarkable. No hydrocephalus. CRANIUM: A large portion of the left side of the skull has been removed. ORBITS: Grossly unremarkable. PARANASAL SINUSES/MASTOIDS: Clear VASCULAR SYSTEM: Skull base flow voids intact. OTHER FINDINGS: None. IMPRESSION: No acute intracranial findings
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
[2018-02-13] MEDS ORDERED: Pneumococcal 23-Valent Vaccine IM ONE (18:56)
[2018-02-14 09:24] LABS: BASO # 0.07 K/mm3 (0.0-2.0); EOS # 0.2 (0.0-0.7); GRAN # 4.42 (1.4-6.5); GRAN % 60.7 % (50.0-68.0); HEMOGLOBIN 13.9 g/dL (12.0-16.0); LYMPH % 26.7 % (22.0-35.0); MEAN CELL VOLUME 86.1 fl (80.0-105.0); MEAN CORPUSCULAR HEMOGLOBIN 28.8 pg (25.0-35.0); MEAN CORPUSCULAR HGB CONC 33.4 g/dl (31.0-37.0); MEAN PLATELET VOLUME 8.9 fl (7.0-11.0); MONO # 0.6 (0.1-0.6); MONO % 8.6 % (1.0-6.0); RBC 4.83 10^6/uL (3.5-6.1); RED CELL DISTRIBUTION WIDTH 14.2 % (11.5-14.5); WHITE BLOOD COUNT 7.3 10^3/ul (4.5-11.0)
[2018-02-14 09:30] LABS: ALB/GLOB RATIO 1.2 (1.1-1.8); ALBUMIN 4.5 g/dL (3.0-4.8); ALT/SGPT 16 U/L (7-56); AST/SGOT 35 U/L (14-36); BLOOD UREA NITROGEN 19 mg/dL (7-21); GFR NON-AFRICAN AMERICAN 58
[2018-02-14] MEDS ORDERED: Pantoprazole 40 mg EC Tab PO SCH (10:00)
[2018-02-14] MEDS: Valproate 500 MG in Sodium Chloride 0.9% 100 ML IVPB SCH ×2 (10:07→17:15)
--- NOTE | 2018-02-14 10:13 | CT ---
Date of service: 02/13/2018 PROCEDURE: CT Angiography of the neck with contrast HISTORY: AMS rule out CVA COMPARISON: None. TECHNIQUE: Contiguous axial images of the neck were obtained from the level of the skull-base to the superior mediastinum in the arteriographic phase of enhancement. Coronal and sagittal reformats or also generated. IV contrast dose: 145 cc of Omni 350 Radiation Dose - DLP: 613 mGy-cm This CT exam was performed using one or more of the following dose reduction techniques: Automated exposure control, adjustment of the mA and/or kV according to patient size, and/or use of iterative reconstruction technique. FINDINGS: RIGHT CAROTID ARTERIES: Common Carotid Artery: Normal. Carotid Bifurcation: Normal. Internal Carotid Artery:Normal. External Carotid Artery (proximal branches): Normal. LEFT CAROTID ARTERIES: Common Carotid Artery: Normal. Carotid Bifurcation: Normal. Internal Carotid Artery:Normal. External Carotid Artery (proximal branches): Normal. VERTEBRAL ARTERIES: Right Vertebral Artery: Normal. Left Vertebral Artery: Normal. OTHER FINDINGS: The report concurs with the preliminary [facility] report IMPRESSION: No significant stenosis or occlusion PROCEDURE: CT Angiography of the Brain. HISTORY: AMS rule out CVA COMPARISON: None available. TECHNIQUE: CT angiography of the intracranial arteries was performed. Coronal and sagittal maximum intensity projection reformated images were generated. This CT exam was performed using one or more of the following dose reduction techniques: Automated exposure control, adjustment of the mA and/or kV according to patient size, and/or use of iterative reconstruction technique. FINDINGS: INTERNAL CEREBRAL ARTERIES: Unremarkable. The skull base, petrous, cavernous and supraclinoid segments are bilaterally widely patent. ANTERIOR CEREBRAL ARTERIES: Unremarkable. A1 and A2 segments are widely patent. Smaller distal branches unremarkable, as visualized. MIDDLE CEREBRAL ARTERIES: Unremarkable. M1 and M2 segments are widely patent. Perisylvian branches grossly symmetric. POSTERIOR CIRCULATION: Basilar Artery: Unremarkable. Distal Vertebral Arteries: Unremarkable. Posterior Cerebral Arteries: Unremarkable. Posterior Inferior Cerebellar Arteries: Unremarkable. ANEURYSM/ VASCULAR MALFORMATIONS: None. OTHER FINDINGS: Previous left craniotomy IMPRESSION: Unremarkable CT Angiography of the Brain.
[2018-02-14] MEDS: Pantoprazole 40 mg EC Tab PO SCH (12:15)
[2018-02-14] MEDS: Sodium Chloride 0.9% 1,000 ML IV SCH ×2 (15:22→17:13)
[2018-02-14] MEDS: Nitroglycerin 2% Ointment Foilpak UD TOP SCH ×2 (15:23→21:20)
--- NOTE | 2018-02-14 15:25 | CARD ---
APPROVED REPORT Date of service: 02/14/2018 EXAM: Two-dimensional and M-mode echocardiogram with Doppler and color Doppler. INDICATION AMS R/O CVA 2D DIMENSIONS Left Atrium (2D)3.1 (1.6-4.0cm)IVSd1.5 (0.7-1.1cm) LVDd4.8 (3.9-5.9cm)PWd1.5 (0.7-1.1cm) M-Mode DIMENSIONS Aortic Root3.10 (2.2-3.7cm)Aortic Cusp Exc.2.00 (1.5-2.0cm) Aortic Valve AoV Peak Fczcpwdu412.0cm/Amy Peak GR.12mmHgLVOT Peak Trbijgop439.0cm/s LVOT VTI17.80cm Mitral Valve MV E Tspyboty08.1cm/sMV A Bpzdrydo26.1cm/sE/A ratio0.6 TDI Lateral E' Peak V7.60cm/sMedial E' Peak V6.92cm/sE/Lateral E'7.4 E/Medial E'8.1 Pulmonary Valve PV Peak Weqfralj162.0cm/sPV Peak Grad.5mmHg LEFT VENTRICLE The Left Ventricle is mildly dilated. There is mild to moderate concentric left ventricular hypertrophy. The systolic function is mildly to moderately impaired.EF-35-40% There is mild to moderate hypokinesis in the apical anterior wall. Transmitral Doppler flow pattern is Grade III-reversible restrictive diastolic dysfunction. No left ventricle thrombus noted on this study. There is no ventricular septal defect visualized. There is no left ventricular aneurysm. There is no mass noted in the left ventricle. RIGHT VENTRICLE The right ventricle is normal size. There is normal right ventricular wall thickness. The right ventricular systolic function is normal. ATRIA The left atrium size is normal. The right atrium size is normal. The interatrial septum is intact with no evidence for an atrial septal defect. AORTIC VALVE The aortic valve is normal in structure. No aortic regurgitation is present. There is no aortic valvular stenosis. There is no aortic valvular vegetation. MITRAL VALVE The mitral valve is thickened but opens well. Mitral regurgitation is trace. There is no mitral valve stenosis. There is no evidence of mitral valve prolapse. TRICUSPID VALVE The tricuspid valve leaflets are thickened , but open well. There is trace tricuspid regurgitation. There is no tricuspid valve stenosis. There is no tricuspid valve prolapse or vegetation. PULMONIC VALVE The pulmonary valve is normal in structure. There is trace pulmonic valvular regurgitation. There is no pulmonic valvular stenosis. GREAT VESSELS The aortic root is normal in size. The ascending aorta is normal in size. The pulmonary artery is normal. The IVC is normal in size and collapses >50% with inspiration. PERICARDIAL EFFUSION There is no pleural effusion. There is no pericardial effusion. <Conclusion> The Left Ventricle is mildly dilated. The systolic function is mildly to moderately impaired.EF-35-40% Trace MR/TR/PI The IVC is normal in size and collapses >50% with inspiration. There is no pericardial effusion. No thrombus noted.
--- NOTE | 2018-02-14 21:23 | CP.PCM.PN ---
<Reg Humphreys - Last Filed: 02/14/18 21:38> Subjective - Date & Time of Evaluation Date of Evaluation: 02/14/18 Time of Evaluation: 08:00 - Subjective Subjective: Pt seen and examined this morning. Pt reports a headache and requests Tylenol. Objective - Vital Signs/Intake and Output Vital Signs (last 24 hours): Temp Pulse Resp BP Pulse Ox 98.8 F 78 20 149/77 97 02/14/18 16:30 02/14/18 18:00 02/14/18 16:30 02/14/18 17:15 02/14/18 16:30 Intake and Output: 02/14/18 02/15/18 18:59 06:59 Intake Total 1600 Output Total 800 Balance 800 - Medications Medications: Current Medications Acetaminophen (Tylenol 325mg Tab) 650 mg PO Q4 PRN PRN Reason: Fever >100.4 F Last Admin: 02/14/18 21:07 Dose: 650 mg Amlodipine Besylate (Norvasc) 10 mg PO DAILY [facility] Last Admin: 02/14/18 10:09 Dose: 10 mg Aspirin (Ecotrin) 81 mg PO DAILY [facility] Last Admin: 02/14/18 10:08 Dose: 81 mg Atorvastatin Calcium (Lipitor) 80 mg PO HS [facility] Last Admin: 02/13/18 22:08 Dose: 80 mg Atorvastatin Calcium (Lipitor) 40 mg PO DIN [facility] Last Admin: 02/14/18 17:13 Dose: 40 mg Gemfibrozil (Lopid) 600 mg PO BID [facility] Last Admin: 02/14/18 17:15 Dose: 600 mg Sodium Chloride (Sodium Chloride 0.9%) 1,000 mls @ 100 mls/hr IV .Q10H [facility] Last Admin: 02/14/18 17:13 Dose: 100 mls/hr Valproate Sodium 500 mg/ (Sodium Chloride) 105 mls @ 100 mls/hr IVPB BID [facility] Last Admin: 02/14/18 17:15 Dose: 100 mls/hr Isosorbide Mononitrate (Imdur Er) 30 mg PO DAILY [facility] Metoprolol Tartrate (Lopressor) 25 mg PO BID [facility] Last Admin: 02/14/18 17:15 Dose: 25 mg Nitroglycerin (Nitro-Bid 2% Oint) 0.5 ea TOP Q6H [facility] Stop: 02/14/18 23:59 Last Admin: 02/14/18 15:23 Dose: 0.5 ea Pantoprazole Sodium (Protonix Ec Tab) 40 mg PO DAILY [facility] Last Admin: 02/14/18 12:15 Dose: 40 mg - Labs Labs: 02/14/18 09:00 02/14/18 09:00 PT 11.1 SECONDS (9.4-12.5) 02/13/18 11:24 INR 0.97 02/13/18 11:24 APTT 41.2 Seconds (25.1-36.5) H 02/13/18 11:24 - Constitutional Appears: No Acute Distress - Head Exam Head Exam: ATRAUMATIC, NORMOCEPHALIC - ENT Exam ENT Exam: Mucous Membranes Moist - Respiratory Exam Respiratory Exam: Clear to Ausculation Bilateral, NORMAL BREATHING PATTERN. absent: Accessory Muscle Use, Respiratory Distress, Stridor - Cardiovascular Exam Cardiovascular Exam: REGULAR RHYTHM, RRR, +S1, +S2. absent: Irregular Rhythm - GI/Abdominal Exam GI & Abdominal Exam: Soft. absent: Tenderness, Normal Bowel Sounds - Extremities Exam Additional comments: right sided hemiparesis - Skin Skin Exam: Dry, Normal Color, Warm Assessment and Plan - Assessment and Plan (Free Text) Assessment: Pt is a 57 yo female with PMH of [place], HTN, CHF, PE, anema, migraine headaches, seizures, and hemorrhagic CVA with right sided hemiparesis, and left temporal and parietal craniotomy who presents to the ED with AMS. Plan: AMS - ASA, Lipitor 40mg PO daily - CTA head and neck: unremarkable - ECHO: EF 40% - OT, PT, speech and swallow - Neuro, Dr Luu: pt is at a NIH stroke scale 6, which is her baseline - lipid panel- WNL - HA1C 5.9 - Head CT: post surgical changes from previous left hemicalvarium with small focal areas of encephalomalacia, no acute finding - Brain MRI: no acute intracranial changes Hx of Seizures - start valproic acid 500ml/hr - EEG HTN - amlodipine 10mg PO daily - metoprolol 25mg PO BID HLD - gemfibrozil 600mg PO BID Sacral Ulcer - wound care Pt seen, examined, assessment and plan discussed with Dr Ngoc Humphreys PGY1 Internal Medicine Resident <Ngoc,Anwar A - Last Filed: 02/15/18 07:26> Objective - Vital Signs/Intake and Output Vital Signs (last 24 hours): Temp Pulse Resp BP Pulse Ox 98.8 F 75 20 149/77 97 02/14/18 16:30 02/15/18 06:00 02/14/18 16:30 02/14/18 17:15 02/14/18 16:30 - Medications Medications: Current Medications Acetaminophen (Tylenol 325mg Tab) 650 mg PO Q4 PRN PRN Reason: Fever >100.4 F Last Admin: 02/14/18 21:07 Dose: 650 mg Amlodipine Besylate (Norvasc) 10 mg PO DAILY [facility] Last Admin: 02/14/18 10:09 Dose: 10 mg Aspirin (Ecotrin) 81 mg PO DAILY [facility] Last Admin: 02/14/18 10:08 Dose: 81 mg Atorvastatin Calcium (Lipitor) 80 mg PO HS [facility] Last Admin: 02/14/18 22:19 Dose: 80 mg Atorvastatin Calcium (Lipitor) 40 mg PO DIN [facility] Last Admin: 02/14/18 17:13 Dose: 40 mg Gemfibrozil (Lopid) 600 mg PO BID [facility] Last Admin: 02/14/18 17:15 Dose: 600 mg Sodium Chloride (Sodium Chloride 0.9%) 1,000 mls @ 100 mls/hr IV .Q10H [facility] Last Admin: 02/15/18 03:10 Dose: 100 mls/hr Valproate Sodium 500 mg/ (Sodium Chloride) 105 mls @ 100 mls/hr IVPB BID [facility] Last Admin: 02/14/18 17:15 Dose: 100 mls/hr Isosorbide Mononitrate (Imdur Er) 30 mg PO DAILY [facility] Lorazepam (Ativan) 2 mg IVP Q2H PRN; Protocol PRN Reason: Seizure activity Metoprolol Tartrate (Lopressor) 25 mg PO BID [facility] Last Admin: 02/14/18 17:15 Dose: 25 mg Pantoprazole Sodium (Protonix Ec Tab) 40 mg PO DAILY [facility] Last Admin: 02/14/18 12:15 Dose: 40 mg - Labs Labs: 02/14/18 09:00 02/14/18 09:00 PT 11.1 SECONDS (9.4-12.5) 02/13/18 11:24 INR 0.97 02/13/18 11:24 APTT 41.2 Seconds (25.1-36.5) H 02/13/18 11:24 Attending/Attestation - Attestation I have personally seen and examined this patient.: Yes I have fully participated in the care of the patient.: Yes I have reviewed all pertinent clinical information, including history, physical exam and plan: Yes Notes (Text): 02/14/18 57 year old female with past medical history of hypertension, dyslipidemia, seizures and CVA with right hemiparesis s/p hemicraniectomy who presented with altered mental status and possible seizure. CT head showed post surgical changes with small focal areas of encephalomalacia ; no acute finding. MRI brain showed no acute findings. CTA head/neck was unremarkable. Echocardiogram showed systolic impairment EF 35-40%. Serial cardiac enzymes were indeterminant. EKG shows TWI lateral leads. Neurology evaluation was appreciated. Patient is on aspirin, statin and depakote. Awaiting EEG. Cardiology evaluation was appreciated; will follow up with recommendations. PT evaluation was appreciated; recommended home with services. Yi Grossman MD Hospitalist.
--- NOTE | 2018-02-15 00:21 | CP.PCM.PN ---
Subjective - Date & Time of Evaluation Date of Evaluation: 02/14/18 Time of Evaluation: 10:30 - Subjective Subjective: Miss guan complains of diarrhea this morning. No seizures, no aphasia, no new weakness. On exam: Exam shows right sided plegia, dysarthria, right sided facial droop. Objective - Vital Signs/Intake and Output Vital Signs (last 24 hours): Temp Pulse Resp BP Pulse Ox 98.8 F 78 20 149/77 97 02/14/18 16:30 02/14/18 18:00 02/14/18 16:30 02/14/18 17:15 02/14/18 16:30 Intake and Output: 02/14/18 02/15/18 18:59 06:59 Intake Total 1600 Output Total 800 Balance 800 - Medications Medications: Current Medications Acetaminophen (Tylenol 325mg Tab) 650 mg PO Q4 PRN PRN Reason: Fever >100.4 F Last Admin: 02/14/18 21:07 Dose: 650 mg Amlodipine Besylate (Norvasc) 10 mg PO DAILY [facility] Last Admin: 02/14/18 10:09 Dose: 10 mg Aspirin (Ecotrin) 81 mg PO DAILY [facility] Last Admin: 02/14/18 10:08 Dose: 81 mg Atorvastatin Calcium (Lipitor) 80 mg PO HS [facility] Last Admin: 02/14/18 22:19 Dose: 80 mg Atorvastatin Calcium (Lipitor) 40 mg PO DIN [facility] Last Admin: 02/14/18 17:13 Dose: 40 mg Gemfibrozil (Lopid) 600 mg PO BID [facility] Last Admin: 02/14/18 17:15 Dose: 600 mg Sodium Chloride (Sodium Chloride 0.9%) 1,000 mls @ 100 mls/hr IV .Q10H [facility] Last Admin: 02/14/18 17:13 Dose: 100 mls/hr Valproate Sodium 500 mg/ (Sodium Chloride) 105 mls @ 100 mls/hr IVPB BID [facility] Last Admin: 02/14/18 17:15 Dose: 100 mls/hr Isosorbide Mononitrate (Imdur Er) 30 mg PO DAILY [facility] Metoprolol Tartrate (Lopressor) 25 mg PO BID [facility] Last Admin: 02/14/18 17:15 Dose: 25 mg Pantoprazole Sodium (Protonix Ec Tab) 40 mg PO DAILY [facility] Last Admin: 02/14/18 12:15 Dose: 40 mg - Labs Labs: 02/14/18 09:00 02/14/18 09:00 PT 11.1 SECONDS (9.4-12.5) 02/13/18 11:24 INR 0.97 02/13/18 11:24 APTT 41.2 Seconds (25.1-36.5) H 02/13/18 11:24 Assessment and Plan - Assessment and Plan (Free Text) Assessment: Patient with hemicraniectomy, s/p old left hemispheric bleed and right sided plegia now back to baseline. Echo: normal. CTA head: normal. MRI brain: no stroke. A/p: Patient with spell that was not stroke, MRI and stroke workup negative. PLan; 1. continue depakote. 2. EEG THank you Dr. burns
--- NOTE | 2018-02-15 00:29 | CON ---
DATE: 02/14/2018 SERVICE: Cardiology. REASON FOR CONSULTATION: Abnormal EKG, T-wave inversion, range of troponin, admitted with seizure activity/TIA. BRIEF CLINICAL HISTORY: This is a 57-year-old female with past medical history significant for CVA, right-sided residual weakness, hemiparesis, history of myocardial infarction, pulmonary embolism, CHF, hypertension, seizure disorder, and hemorrhagic CVA with right-sided hemiparesis, status post left temporoparietal craniotomy and evacuation of the blood clot who became unresponsive yesterday at 10 o'clock, so the patient's brought her here. According to the patient's family, the patient's mentation changed after the hemorrhagic stroke. The patient is a very poor historian. Only she says that she is and hungry, does not contribute any history. Information obtained from the chart by contacting the . PAST MEDICAL HISTORY: Significant for myocardial infarction, hypertension, CHF, pulmonary embolism, anemia, migraine headaches, seizure disorder, hemorrhagic stroke, CVA with right-sided residual weakness, status post left temporoparietal craniotomy. PAST SURGICAL HISTORY: As mentioned, history of stroke, hemorrhagic and evacuation of the blood clot after having left-sided temporoparietal craniotomy at [facility], appendectomy, colostomy in the past, craniotomy as above. SOCIAL HISTORY: Denies any smoking. Denies any history of alcohol abuse. ALLERGIES: ALLERGY TO CAFFEINE. CURRENT MEDICATIONS: The patient is taking aspirin, amlodipine, Crestor, gemfibrozil, pantoprazole. REVIEW OF SYSTEMS: As per HPI. PHYSICAL EXAMINATION VITAL SIGNS: As follows: Height of the patient 5 feet 5 inches, weight of the patient 136 pounds, body mass index 22 kg/sq m. Rest of the vitals: Temperature afebrile, heart rate 82, blood pressure 146/92. HEENT: PERRLA. Extraocular muscles intact. NECK: Supple. No carotid bruit. No thyromegaly. CHEST: Clear to auscultation. HEART: S1 and S2 regular. ABDOMEN: Soft. EXTREMITIES: Clubbing and cyanosis negative. LABORATORY DATA: EKG shows normal sinus, T inversion V3 to V6. Blood workup as follows: WBC 7.2, hemoglobin 13.8, hematocrit 41.6, platelet count of 462. Chemistry shows sodium 142, potassium 4, chloride 104, carbon dioxide 25, anion gap of 17, BUN 19, creatinine 1. Hemoglobin A1c 5.9. Blood sugar 178. Alkaline phosphatase 147, total protein 8.3, albumin 3.7, albumin-globulin ratio 1.2. Troponin 0.04, 0.04, 0.06. IMPRESSION AND PLAN: A 57-year-old female with past medical history significant for hemorrhagic stroke, status post right-sided residual weakness with hemiparesis, status post evacuation of blood clot from left temporoparietal craniotomy, hypertension, coronary artery disease, diabetes, hyperlipidemia, abnormal baseline EKG, but so far, no evidence of acute myocardial infarction. Since the patient is asymptomatic, may have underlying coronary artery disease as in the history, we will aggressively treat because the patient has no evidence of ongoing ischemia, no chest pain. We will optimize medical treatment. Because of the patient's mental condition and symptomatology, we will treat aggressive medical treatment. We will try to get in touch with to get more information, pertaining information from the . We will put beta-chris, nitrates, aspirin, modification of lifestyle, lower the cholesterol - goal is to keep LDL less than 70, at this stage prefer for secondary prevention. We will follow with you. No plan for invasive workup. Thank you, Dr. Grossman, for providing us the opportunity in taking care of the patient, Arcelia Myrick. Farideh Jones MD
[2018-02-15] MEDS: Sodium Chloride 0.9% 1,000 ML IV SCH ×3 (03:10→23:31)
[2018-02-15 07:33] LABS: BASO # 0.05 K/mm3 (0.0-2.0); BASO % 0.9 % (0.0-3.0); EOS # 0.4 (0.0-0.7); EOS % 6.5 % (1.5-5.0); GRAN # 2.18 (1.4-6.5); GRAN % 37.5 % (50.0-68.0); HEMOGLOBIN 11.8 g/dL (12.0-16.0); LYMPH # 2.7 (1.2-3.4); LYMPH % 45.5 % (22.0-35.0); MEAN CELL VOLUME 87.6 fl (80.0-105.0); MEAN CORPUSCULAR HEMOGLOBIN 28.1 pg (25.0-35.0); MEAN CORPUSCULAR HGB CONC 32.1 g/dl (31.0-37.0); MONO # 0.6 (0.1-0.6); MONO % 9.6 % (1.0-6.0); RBC 4.2 10^6/uL (3.5-6.1); RED CELL DISTRIBUTION WIDTH 14.3 % (11.5-14.5); WHITE BLOOD COUNT 5.8 10^3/ul (4.5-11.0)
[2018-02-15 07:53] LABS: ALB/GLOB RATIO 1.1 (1.1-1.8); ALBUMIN 3.5 g/dL (3.0-4.8); ALT/SGPT 20 U/L (7-56); AST/SGOT 30 U/L (14-36); BLOOD UREA NITROGEN 16 mg/dL (7-21); CALCIUM 8.9 mg/dL (8.4-10.5); GFR NON-AFRICAN AMERICAN > 60
--- NOTE | 2018-02-15 08:05 | CP.PCM.PN ---
Subjective - Date & Time of Evaluation Date of Evaluation: 02/15/18 Time of Evaluation: 06:40 - Subjective Subjective: Awake, alert, at bedside Reason for consultation and follow up: Cardiac evaluation of EKG changes,T- wave inversion, indeterminant troponins, history of [place],hypertension,CHF,PE, hemorrhagic CVA with right sided hemiparesis, post craniotomy Seen and examined by me and Dr. Jones Objective - Vital Signs/Intake and Output Vital Signs (last 24 hours): Temp Pulse Resp BP Pulse Ox 98.8 F 75 20 149/77 97 02/14/18 16:30 02/15/18 06:00 02/14/18 16:30 02/14/18 17:15 02/14/18 16:30 Intake and Output: 02/15/18 02/15/18 06:59 18:59 Intake Total 1320 Output Total 500 Balance 820 - Medications Medications: Current Medications Acetaminophen (Tylenol 325mg Tab) 650 mg PO Q4 PRN PRN Reason: Fever >100.4 F Last Admin: 02/14/18 21:07 Dose: 650 mg Amlodipine Besylate (Norvasc) 10 mg PO DAILY [facility] Last Admin: 02/14/18 10:09 Dose: 10 mg Aspirin (Ecotrin) 81 mg PO DAILY [facility] Last Admin: 02/14/18 10:08 Dose: 81 mg Atorvastatin Calcium (Lipitor) 80 mg PO HS [facility] Last Admin: 02/14/18 22:19 Dose: 80 mg Atorvastatin Calcium (Lipitor) 40 mg PO DIN [facility] Last Admin: 02/14/18 17:13 Dose: 40 mg Gemfibrozil (Lopid) 600 mg PO BID [facility] Last Admin: 02/14/18 17:15 Dose: 600 mg Sodium Chloride (Sodium Chloride 0.9%) 1,000 mls @ 100 mls/hr IV .Q10H [facility] Last Admin: 02/15/18 03:10 Dose: 100 mls/hr Valproate Sodium 500 mg/ (Sodium Chloride) 105 mls @ 100 mls/hr IVPB BID [facility] Last Admin: 02/14/18 17:15 Dose: 100 mls/hr Isosorbide Mononitrate (Imdur Er) 30 mg PO DAILY [facility] Lorazepam (Ativan) 2 mg IVP Q2H PRN; Protocol PRN Reason: Seizure activity Metoprolol Tartrate (Lopressor) 25 mg PO BID [facility] Last Admin: 02/14/18 17:15 Dose: 25 mg Pantoprazole Sodium (Protonix Ec Tab) 40 mg PO DAILY [facility] Last Admin: 02/14/18 12:15 Dose: 40 mg - Labs Labs: 02/15/18 07:00 02/15/18 07:00 PT 11.1 SECONDS (9.4-12.5) 02/13/18 11:24 INR 0.97 02/13/18 11:24 APTT 41.2 Seconds (25.1-36.5) H 02/13/18 11:24 - Constitutional Appears: No Acute Distress - Eye Exam Eye Exam: Normal appearance - ENT Exam ENT Exam: Mucous Membranes Moist - Respiratory Exam Respiratory Exam: Decreased Breath Sounds, NORMAL BREATHING PATTERN - Cardiovascular Exam Cardiovascular Exam: +S1, +S2 - GI/Abdominal Exam GI & Abdominal Exam: Soft, Normal Bowel Sounds - Extremities Exam Additional comments: right sided hemiparesis - Neurological Exam Neurological Exam: Alert, Awake - Skin Skin Exam: Dry, Warm Assessment and Plan - Assessment and Plan (Free Text) Assessment: A 57 year old female who came in to the ER due to altered mental status. History of AZ, HTN, CHF, PE, anemia, migraine headaches, seizures, and hemorrhagic CVA with right sided hemiparesis, and left temporal and parietal craniotomy,seizures, appendectomy, colostomy. Cardiac consult for abnormal EKG , T wave inversions, indeterminant troponins, Patient denies any chest pain or shortness of breath. No evidence of acute myocardial infarction,Will optimize medical treatment for now considering other co-morbidities.Echo done. Plan: ECHO done- mildly dilated LV, systolic function moderately impaired LVEF 34%,Trace MR/TR/PI Denies chest pain,denies shortness of breath Awake, alert, disoriented Cardiac status stable Heart rate and blood pressure controlled No invasive cardiac work up at the moment Neuro on consult Continue current treatment Continue current medications Further recommendations during hospital course Will follow up Plan and treatment discussed with Dr. Jones
[2018-02-15] MEDS ORDERED: Potassium Chloride 20 mEq ER Tab PO ONE (09:28)
[2018-02-15] MEDS: Valproate 500 MG in Sodium Chloride 0.9% 100 ML IVPB SCH ×2 (10:04→18:33)
[2018-02-15] MEDS: Pantoprazole 40 mg EC Tab PO SCH (10:08)
[2018-02-15] MEDS ORDERED: HYDROmorphone 0.5 mg/0.5 ml ISec IVP STA (16:29)
--- NOTE | 2018-02-15 18:13 | CT ---
Date of service: 02/15/2018 PROCEDURE: CT HEAD WITHOUT CONTRAST. HISTORY: seizure COMPARISON: 01/28/2018 CT head. 02/13/2018 CT head. 02/13/2018 MRI brain TECHNIQUE: Axial computed tomography images were obtained through the head/brain without intravenous contrast. Coronal and sagittal reconstructed images. Radiation dose: Total exam DLP = 959.10 mGy-cm. This CT exam was performed using one or more of the following dose reduction techniques: Automated exposure control, adjustment of the mA and/or kV according to patient size, and/or use of iterative reconstruction technique. FINDINGS: HEMORRHAGE: No intracranial hemorrhage. BRAIN: No mass effect or edema. Stable postoperative changes left hemisphere. VENTRICLES: No significant interval change compared to the prior examination(s). CALVARIUM: Stable findings related to prior left parietal craniotomy. PARANASAL SINUSES: Unremarkable as visualized. No significant inflammatory changes. MASTOID AIR CELLS: Unremarkable as visualized. No inflammatory changes. OTHER FINDINGS: None. IMPRESSION: No acute findings related to/accounting for the clinical presentation. No significant interval change compared to the prior examination(s).
--- NOTE | 2018-02-15 22:54 | CP.PCM.PN ---
<Reg Humphreys - Last Filed: 02/15/18 23:01> Subjective - Date & Time of Evaluation Date of Evaluation: 02/15/18 Time of Evaluation: 06:15 - Subjective Subjective: Pt seen and examined with at bedside. Expressive aphasia present. Pt reports headache, requesting Tylenol. Objective - Vital Signs/Intake and Output Vital Signs (last 24 hours): Temp Pulse Resp BP Pulse Ox 98.6 F 68 26 H 117/64 99 02/15/18 17:01 02/15/18 18:00 02/15/18 17:01 02/15/18 17:01 02/15/18 17:01 Intake and Output: 02/15/18 02/16/18 18:59 06:59 Intake Total 1720 Output Total 351 Balance 1369 - Medications Medications: Current Medications Acetaminophen (Tylenol 325mg Tab) 650 mg PO Q4 PRN PRN Reason: Fever >100.4 F Last Admin: 02/15/18 20:29 Dose: 650 mg Aspirin (Ecotrin) 81 mg PO DAILY [facility] Last Admin: 02/15/18 10:05 Dose: 81 mg Atorvastatin Calcium (Lipitor) 40 mg PO DIN [facility] Last Admin: 02/15/18 18:35 Dose: Not Given Gemfibrozil (Lopid) 600 mg PO BID [facility] Last Admin: 02/15/18 18:35 Dose: Not Given Sodium Chloride (Sodium Chloride 0.9%) 1,000 mls @ 100 mls/hr IV .Q10H [facility] Last Admin: 02/15/18 15:20 Dose: 100 mls/hr Valproate Sodium 500 mg/ (Sodium Chloride) 105 mls @ 100 mls/hr IVPB BID [facility] Last Admin: 02/15/18 18:33 Dose: 100 mls/hr Isosorbide Mononitrate (Imdur Er) 30 mg PO DAILY [facility] Last Admin: 02/15/18 10:05 Dose: 30 mg Lisinopril (Zestril) 10 mg PO DAILY [facility] Lorazepam (Ativan) 2 mg IVP Q2H PRN; Protocol PRN Reason: Seizure activity Metoprolol Tartrate (Lopressor) 25 mg PO BID [facility] Last Admin: 02/15/18 18:35 Dose: Not Given Pantoprazole Sodium (Protonix Ec Tab) 40 mg PO DAILY [facility] Last Admin: 02/15/18 10:08 Dose: 40 mg - Labs Labs: 02/15/18 07:00 02/15/18 07:00 PT 11.1 SECONDS (9.4-12.5) 02/13/18 11:24 INR 0.97 02/13/18 11:24 APTT 41.2 Seconds (25.1-36.5) H 02/13/18 11:24 - Constitutional Appears: No Acute Distress - Respiratory Exam Respiratory Exam: Clear to Ausculation Bilateral, NORMAL BREATHING PATTERN. absent: Wheezes - Cardiovascular Exam Cardiovascular Exam: RRR, +S1, +S2. absent: Murmur - GI/Abdominal Exam GI & Abdominal Exam: Soft, Normal Bowel Sounds. absent: Tenderness - Extremities Exam Additional comments: R hemiparesis - Neurological Exam Neurological Exam: Altered Assessment and Plan - Assessment and Plan (Free Text) Assessment: Pt is a 57 yo female with PMH of CA, HTN, CHF, PE, anema, migraine headaches, seizures, and hemorrhagic CVA with right sided hemiparesis, and left temporal and parietal craniotomy who presents to the ED with AMS. Plan: AMS - ASA, Lipitor 40mg PO daily - CTA head and neck: unremarkable, ECHO: EF 40% - OT, PT, speech and swallow - Repeat Head CT 02/15/18: no acute intracranial changes - Brain MRI: no acute intracranial changes Hx of Seizures - Neuro, Dr Luu:recommends increasing valproic acid dosage 750 BID. reviewed EEG , no signs of seizure HTN - amlodipine 10mg PO daily - metoprolol 25mg PO BID HLD - gemfibrozil 600mg PO BID Sacral Ulcer - wound care Pt seen, examined, assessment and plan discussed with Dr Ngoc Humphreys PGY1 Internal Medicine Resident <Yi Grossman - Last Filed: 02/16/18 07:20> Objective - Vital Signs/Intake and Output Vital Signs (last 24 hours): Temp Pulse Resp BP Pulse Ox 98.6 F 46 L 26 H 117/64 99 02/15/18 17:01 02/16/18 06:00 02/15/18 17:01 02/15/18 17:01 02/15/18 17:01 Intake and Output: 02/16/18 02/16/18 06:59 18:59 Intake Total 1560 Output Total 701 Balance 859 - Medications Medications: Current Medications Acetaminophen (Tylenol 325mg Tab) 650 mg PO Q4 PRN PRN Reason: Fever >100.4 F Last Admin: 02/16/18 03:13 Dose: 650 mg Aspirin (Ecotrin) 81 mg PO DAILY [facility] Last Admin: 02/15/18 10:05 Dose: 81 mg Atorvastatin Calcium (Lipitor) 40 mg PO DIN [facility] Last Admin: 02/15/18 18:35 Dose: Not Given Gemfibrozil (Lopid) 600 mg PO BID [facility] Last Admin: 02/15/18 18:35 Dose: Not Given Sodium Chloride (Sodium Chloride 0.9%) 1,000 mls @ 100 mls/hr IV .Q10H [facility] Last Admin: 02/15/18 23:31 Dose: 100 mls/hr Valproate Sodium 500 mg/ (Sodium Chloride) 105 mls @ 100 mls/hr IVPB BID [facility] Last Admin: 02/15/18 18:33 Dose: 100 mls/hr Isosorbide Mononitrate (Imdur Er) 30 mg PO DAILY [facility] Last Admin: 02/15/18 10:05 Dose: 30 mg Lisinopril (Zestril) 10 mg PO DAILY [facility] Lorazepam (Ativan) 2 mg IVP Q2H PRN; Protocol PRN Reason: Seizure activity Metoprolol Tartrate (Lopressor) 25 mg PO BID [facility] Last Admin: 02/15/18 18:35 Dose: Not Given Pantoprazole Sodium (Protonix Ec Tab) 40 mg PO DAILY [facility] Last Admin: 02/15/18 10:08 Dose: 40 mg - Labs Labs: 02/15/18 07:00 02/15/18 07:00 PT 11.1 SECONDS (9.4-12.5) 02/13/18 11:24 INR 0.97 02/13/18 11:24 APTT 41.2 Seconds (25.1-36.5) H 02/13/18 11:24 Attending/Attestation - Attestation I have personally seen and examined this patient.: Yes I have fully participated in the care of the patient.: Yes I have reviewed all pertinent clinical information, including history, physical exam and plan: Yes Notes (Text): 02/15/18 57 year old female with past medical history of hypertension, dyslipidemia, seizures and CVA with right hemiparesis s/p hemicraniectomy who presented with altered mental status and possible seizure. CT head showed post surgical changes with small focal areas of encephalomalacia ; no acute finding. MRI brain showed no acute findings. CTA head/neck was unremarkable. Echocardiogram showed systolic impairment EF 35-40%. Case was discussed with cardiology and lisinopril was added. Neurology is following. Patient was on aspirin, statin. She is on depakote. EEG was reviewed by neurology. PT evaluation was appreciated; recommended home with services. D/c planning; however patient's left in evening and states transportation will be arranged tomorrow. Yi Grossman MD Hospitalist.
[2018-02-16 08:14] LABS: BASO # 0.05 K/mm3 (0.0-2.0); BASO % 0.7 % (0.0-3.0); EOS # 0.5 (0.0-0.7); EOS % 6.4 % (1.5-5.0); GRAN # 3.94 (1.4-6.5); GRAN % 56.3 % (50.0-68.0); HEMOGLOBIN 11.2 g/dL (12.0-16.0); MEAN CELL VOLUME 87.7 fl (80.0-105.0); MEAN CORPUSCULAR HEMOGLOBIN 28.1 pg (25.0-35.0); MEAN CORPUSCULAR HGB CONC 32.1 g/dl (31.0-37.0); MONO # 0.5 (0.1-0.6); MONO % 7.6 % (1.0-6.0); RBC 3.98 10^6/uL (3.5-6.1); RED CELL DISTRIBUTION WIDTH 13.9 % (11.5-14.5)
[2018-02-16 08:30] LABS: ALB/GLOB RATIO 1.1 (1.1-1.8); ALBUMIN 3.4 g/dL (3.0-4.8); ALT/SGPT 20 U/L (7-56); AST/SGOT 24 U/L (14-36); BLOOD UREA NITROGEN 14 mg/dL (7-21); CALCIUM 9.1 mg/dL (8.4-10.5); GFR NON-AFRICAN AMERICAN > 60
[2018-02-16 09:01] VITALS: BP 141/76; PULSE 60; RESP 20; TEMP 98.1; O2SAT 97
[2018-02-16] MEDS: Valproate 500 MG in Sodium Chloride 0.9% 100 ML IVPB SCH (10:35)
[2018-02-16] MEDS: Pantoprazole 40 mg EC Tab PO SCH (10:37)
[2018-02-16] MEDS ORDERED: Magnesium Sulfate 2 gm/50 ml 2 GM/50 ML BAG IVPB ONE (11:58)
--- NOTE | 2018-02-17 16:42 | CP.PCM.DIS ---
Provider - Provider Date of Admission: 02/13/18 13:25 Attending physician: Yi Grossman MD Primary care physician: NO PRIMARY CARE PROVIDER Consults: Cardio: Dr. Jones Neuro: Dr. Luu Time Spent in preparation of Discharge (in minutes): 47 Diagnosis - Discharge Diagnosis (1) Seizure Status: Acute (2) TIA (transient ischemic attack) Status: Acute Hospital Course - Lab Results Lab Results: Most Recent Lab Values WBC 7.0 10^3/ul (4.5-11.0) D 02/16/18 07:00 RBC 3.98 10^6/uL (3.5-6.1) 02/16/18 07:00 Hgb 11.2 g/dL (12.0-16.0) L 02/16/18 07:00 Hct 34.9 % (36.0-48.0) L 02/16/18 07:00 MCV 87.7 fl (80.0-105.0) 02/16/18 07:00 MCH 28.1 pg (25.0-35.0) 02/16/18 07:00 MCHC 32.1 g/dl (31.0-37.0) 02/16/18 07:00 RDW 13.9 % (11.5-14.5) 02/16/18 07:00 Plt Count 380 10^3/uL (120.0-450.0) 02/16/18 07:00 MPV 9.0 fl (7.0-11.0) 02/16/18 07:00 Gran % 56.3 % (50.0-68.0) 02/16/18 07:00 Lymph % (Auto) 29.0 % (22.0-35.0) 02/16/18 07:00 Saline % (Auto) 7.6 % (1.0-6.0) H 02/16/18 07:00 Eos % (Auto) 6.4 % (1.5-5.0) H 02/16/18 07:00 Baso % (Auto) 0.7 % (0.0-3.0) 02/16/18 07:00 Gran # 3.94 (1.4-6.5) 02/16/18 07:00 Lymph # (Auto) 2.0 (1.2-3.4) 02/16/18 07:00 Saline # (Auto) 0.5 (0.1-0.6) 02/16/18 07:00 Eos # (Auto) 0.5 (0.0-0.7) 02/16/18 07:00 Baso # (Auto) 0.05 K/mm3 (0.0-2.0) 02/16/18 07:00 PT 11.1 SECONDS (9.4-12.5) 02/13/18 11:24 INR 0.97 02/13/18 11:24 APTT 41.2 Seconds (25.1-36.5) H 02/13/18 11:24 Sodium 140 mmol/L (132-148) 02/16/18 07:00 Potassium 4.2 mmol/L (3.6-5.0) 02/16/18 07:00 Chloride 109 mmol/L (98-107) H 02/16/18 07:00 Carbon Dioxide 23 mmol/L (21-33) 02/16/18 07:00 Anion Gap 13 (10-20) 02/16/18 07:00 BUN 14 mg/dL (7-21) 02/16/18 07:00 Creatinine 0.6 mg/dl (0.7-1.2) L 02/16/18 07:00 Est GFR ( Amer) > 60 02/16/18 07:00 Est GFR (Non-Af Amer) > 60 02/16/18 07:00 POC Glucose (mg/dL) 108 mg/dL (65-110) 02/13/18 10:43 Random Glucose 94 mg/dL (70-110) 02/16/18 07:00 Hemoglobin A1c 5.9 % (4.2-6.5) 02/13/18 11:24 Calcium 9.1 mg/dL (8.4-10.5) 02/16/18 07:00 Total Bilirubin 0.3 mg/dL (0.2-1.3) 02/16/18 07:00 AST 24 U/L (14-36) 02/16/18 07:00 ALT 20 U/L (7-56) 02/16/18 07:00 Alkaline Phosphatase 104 U/L (38-126) 02/16/18 07:00 Troponin I 0.06 ng/mL D 02/13/18 23:38 Total Protein 6.4 g/dL (5.8-8.3) 02/16/18 07:00 Albumin 3.4 g/dL (3.0-4.8) 02/16/18 07:00 Globulin 3.0 gm/dL 02/16/18 07:00 Albumin/Globulin Ratio 1.1 (1.1-1.8) 02/16/18 07:00 Triglycerides 73 mg/dL (35-160) 02/13/18 11:24 Cholesterol 140 mg/dL (130-200) 02/13/18 11:24 LDL Cholesterol Direct 32 mg/dL (0-129) 02/13/18 11:24 HDL Cholesterol 74 mg/dL (29-60) H 02/13/18 11:24 TSH 3rd Generation 2.16 mIU/mL (0.46-4.68) 02/15/18 07:00 Valproic Acid < 10 ug/mL (50.0-100.0) L 02/13/18 23:38 Blood Type B POSITIVE 02/13/18 16:25 Antibody Screen Negative 02/13/18 16:25 BBK History Checked Patient has bt 02/13/18 16:25 - Hospital Course Hospital Course: 57 year old female with past medical history significant for HTN, HLD, seizures and CVA with right hemiparesis s/p hemicraniectomy who presented with altered mental status and possible seizure. Neurology and Cardiology were consulted. A CT head showed post surgical changes with small focal areas of encephalomalacia and no acute findings. An MRI brain showed no acute findings. A CTA head/neck was unremarkable. ardiology was consulted. An EEG showed no signs of seizures. An echocardiogram showed systolic impairment EF 35-40%. While in house, she was started on lisinopril. Case was discussed with cardiology and lisinopril was added. Depakote dosage was increased by neurology. Patient had headaches the day of her discharge. Neurology recommended adding Neurontin. PT recommended HWS. Patient was discharged on 02/16/18 with instructions as written below. - Date & Time of H&P Date of H&P: 02/13/18 Time of H&P: 18:43 Discharge Exam - Head Exam Head Exam: ATRAUMATIC, NORMOCEPHALIC - Eye Exam Eye Exam: EOMI, Normal appearance - ENT Exam ENT Exam: Mucous Membranes Moist - Neck Exam Neck exam: Full Rom - Respiratory Exam Respiratory Exam: Clear to PA & Lateral, NORMAL BREATHING PATTERN, UNREMARKABLE - Cardiovascular Exam Cardiovascular Exam: REGULAR RHYTHM - GI/Abdominal Exam GI & Abdominal Exam: Normal Bowel Sounds, Unremarkable - Extremities Exam Extremities exam: normal inspection - Neurological Exam Neurological exam: Alert - Psychiatric Exam Psychiatric exam: Normal Affect, Normal Mood - Skin Skin Exam: Dry, Intact, Normal Color, Warm Discharge Plan - Discharge Medications Prescriptions: Atorvastatin [Lipitor] 40 mg PO DIN #30 tab Gabapentin 300 mg PO Q12 #28 capsule Isosorbide Mononitrate ER [Imdur ER] 30 mg PO DAILY #30 tab Lisinopril [Zestril] 10 mg PO DAILY #30 tab Magnesium Oxide [Mag-Oxide Magnesium] 400 mg PO BID 30 Days #60 tablet Valproic Acid (As Sodium Salt) [Valproic Acid] 750 mg PO BID #60 tab - Follow Up Plan Condition: FAIR Disposition: HOME/ ROUTINE Instructions: Seizures, Adult (DC) Additional Instructions: Please follow up with your primary care doctor within one week of discharge Please follow up with Dr. Luu, Neurologist, in her office within one week of discharge. Her contact information has been provided in this paperwork Please take all medications as prescribed You have been prescribed two new medications: 1. Magnesium Oxide 2. Tramadol: Pain medication; Use as needed for migraines. Please do not drive or operate heavy machinery under the influence of this medication If your symptoms return, please seek emergency medical attention Referrals: Alondra PEREZ,Rosalina Rondon APN [Non-Staff] - PCPNO [Primary Care Provider] - Gordo Luu MD [Staff Provider] -
== END 2018-02-16 17:37 | disposition home or self-care (01) | DRG 100 ==
LOC: ED 10:38 → ERH 13:25 → UNDOADMOB 13:48 → ERH 13:48 → 3RSO 15:25 → OBSVTOIN 02-15 13:15
PROVIDERS: ADMIT Internal Medicine; ATTEND Internal Medicine
DX: G40.909 Epilepsy, unspecified, not intractable, without status epilepticus (principal); M72.6 Necrotizing fasciitis; G45.9 Transient cerebral ischemic attack, unspecified; I69.351 Hemiplegia and hemiparesis following cerebral infarction affecting right dominant side; R47.01 Aphasia; E78.5 Hyperlipidemia, unspecified; E78.00 Pure hypercholesterolemia, unspecified; E11.9 Type 2 diabetes mellitus without complications; G93.89 Other specified disorders of brain; I11.0 Hypertensive heart disease with heart failure; I25.10 Atherosclerotic heart disease of native coronary artery without angina pectoris; I25.2 Old myocardial infarction; I50.9 Heart failure, unspecified; J44.9 Chronic obstructive pulmonary disease, unspecified; K21.9 Gastro-esophageal reflux disease without esophagitis; Z79.82 Long term (current) use of aspirin; Z86.711 Personal history of pulmonary embolism; Z87.01 Personal history of pneumonia (recurrent); Z87.440 Personal history of urinary (tract) infections; Z90.49 Acquired absence of other specified parts of digestive tract; Z91.048 Other nonmedicinal substance allergy status; Z87.81 Personal history of (healed) traumatic fracture

== ENCOUNTER 2018-04-30 17:58 | Emergency (ER) | payer OTHER ==
[2018-04-30 17:58] VITALS: BMI 22.7
--- NOTE | 2018-04-30 19:04 | ED PDOC ---
Arrival/HPI - General Time Seen by Provider: 04/30/18 18:04 Historian: Patient - History of Present Illness Narrative History of Present Illness (Text): 04/30/18 19:00 57 year old female, with past medical history of CT, HTN, CHF, PE, anema, migraine headaches, seizures, and hemorrhagic CVA with right sided hemiparesis, and left temporal and parietal craniotomy who presents to the ED accompanied by for evaluation of worsening headache since 1 week and a half. states patient is verbally limited secondary to history of CVA and always had a headache. However, for the past week and a half, patient has been indicating worsening headache to her . reports giving patient Tylenol but is unsure if it is effective. denies any other symptoms. ROS limited secondary to patient's clinical condition. PMD: Rosalina Cantu Time/Duration: 1 week Symptom Onset: Gradual Symptom Course: Unchanged Activities at Onset: Light Context: Home Past Medical History - Provider Review Nursing Documentation Reviewed: Yes - Infectious Disease Hx of Infectious Diseases: None - Tetanus Immunization Tetanus Immunization: Unknown - Cardiac Hx Cardiac Disorders: Yes (CT, cardiac arrythmias, heart murmur,) Hx Congestive Heart Failure: Yes Hx Hypertension: Yes - Pulmonary Hx Chronic Obstructive Pulmonary Disease (COPD): Yes - Neurological HX Cerebrovascular Accident: Yes (with residual R hemiparesis) - HEENT Hx HEENT Disorder: No Hx Epistaxis: Yes - Renal Hx Renal Disorder: No - Endocrine/Metabolic Hx Endocrine Disorders: No - Hematological/Oncological Hx Blood Disorders: No Hx Anemia: Yes - Integumentary Hx Dermatological Disorder: No Other/Comment: 2 brown skin discolorations to left ankle - Musculoskeletal/Rheumatological Hx Musculoskeletal Disorders: No Hx Falls: No - Gastrointestinal Hx Gastrointestinal Disorders: No Hx Ileostomy: Yes Other/Comment: Necrotizing fascites - Genitourinary/Gynecological Hx Genitourinary Disorders: No Hx Urinary Tract Infection: No - Psychiatric Hx Psychophysiologic Disorder: Yes (Opiate dependent) Hx Substance Use: No - Surgical History Hx Appendectomy: Yes Other/Comment: Illeostomy , skull surgery pt using helmet - Anesthesia Hx Anesthesia Reactions: No Hx Malignant Hyperthermia: No Family/Social History - Physician Review Nursing Documentation Reviewed: Yes Family/Social History: Unknown Family HX Smoking Status: Never Smoked Hx Alcohol Use: No Hx Substance Use: No Allergies/Home Meds Allergies/Adverse Reactions: Allergies caffeine Adverse Reaction (Mild, Verified 05/17/16 08:45) DIZZINESS pt complains of palpitations after having caffeine Home Medications: Home Meds Medication Instructions Recorded Confirmed RX: Aspirin [Ecotrin] 81 mg PO DAILY 01/28/18 02/13/18 RX: Gemfibrozil 600 mg PO BID 01/28/18 02/13/18 RX: Metoprolol Tartrate [Lopressor] 25 mg PO BID 01/28/18 02/13/18 RX: Pantoprazole [Protonix EC Tab] 40 mg PO DAILY 01/28/18 02/13/18 RX: Rosuvastatin Calcium [Crestor] 20 mg DAILY 01/28/18 02/13/18 Review of Systems - Review of Systems Systems not reviewed;Unavailable: Acuity of Condition (Verbally limited secondary to history of CVA) Neurological: Headache Physical Exam Vital Signs Reviewed: Yes Temperature: Afebrile Blood Pressure: Normal Pulse: Regular Respiratory Rate: Normal Appearance: Positive for: Well-Appearing Pain Distress: None Mental Status: Positive for: other (Alert) - Systems Exam Head: Present: Other (scalp depression noted s/p left temporal and parietal craniotomy ) Pupils: Present: PERRL Extroacular Muscles: Present: Other (Unable to test EOMI secondary to patient not following commands. ) Conjunctiva: Present: Normal Mouth: Present: Moist Mucous Membranes Neck: Present: Normal Range of Motion Respiratory/Chest: Present: Clear to Auscultation, Good Air Exchange. No: Respiratory Distress, Accessory Muscle Use Cardiovascular: Present: Regular Rate and Rhythm, Normal S1, S2. No: Murmurs Abdomen: No: Tenderness, Distention, Peritoneal Signs Upper Extremity: Present: Other (Does not move right extremity. Left extremity weakness. ). No: Cyanosis, Edema Lower Extremity: Present: Other (Does not move right extremity. Left extremity weakness. ). No: Edema Neurological: Present: Other (Limited secondary to not following commands.) Skin: Present: Warm, Dry, Normal Color. No: Rashes Psychiatric: Present: Alert Medical Decision Making ED Course and Treatment: 04/30/18 19:00 Impression: 57 year old female presents to the ED for evaluation of headache. Plan: -- CT of Head -- Labs -- Reassess and disposition Prior Visits: Notes and results from previous visits were reviewed. Progress Notes: - Transfer of Care Patient signed out to Dr:: Marissa Pending Radiology Studies:: CT head Other: Pending re-eval after medication - Scribe Statement The provider has reviewed the documentation as recorded by the Scribe Ismael Bernal. All medical record entries made by the Scribe were at my direction and personally dictated by me. I have reviewed the chart and agree that the record accurately reflects my personal performance of the history, physical exam, medical decision making, and the department course for this patient. I have also personally directed, reviewed, and agree with the discharge instructions and disposition. Disposition/Present on Arrival - Present on Arrival Any Indicators Present on Arrival: No History of DVT/PE: No History of Uncontrolled Diabetes: No Urinary Catheter: No (external purick catheter) History Surgical Site Infection Following: None - Disposition Have Diagnosis and Disposition been Completed?: No Diagnosis: Headache Disposition Time: 21:00 Patient Problems: Current Active Problems Problem Status Onset Headache Acute Condition: STABLE Referrals: Alondra PEREZ,Rosalina Rondon APN [Primary Care Provider] - Follow up with primary
[2018-04-30 19:11] VITALS: RESP 18
[2018-04-30] MEDS ORDERED: Sodium Chloride 0.9% 1,000 ML IV STA (19:38)
--- NOTE | 2018-04-30 22:33 | ED PDOC ---
Physical Exam Vital Signs Temp Pulse Resp BP Pulse Ox 04/30/18 17:58 98.9 F 88 18 137/83 96 Medical Decision Making ED Course and Treatment: 04/30/18 21:15 Case endorsed to me by Dr. Bowser pending head CT, reassess, and disposition.Patients past medical history/HPI are noted. EXAM: CT of the head Electronically signed on Apr 30, 2018 10:18:37 PM EST by: Kwasi Mueller M.D., Impression: 1. No evidence of acute intracranial hemorrhage or infarct. 2. Left-sided craniotomy changes are grossly stable. 05/01/18 01:05 Patient with relief of her headache following NSAID/period of observation in the ED. - RAD Interpretation Radiology Orders: 04/30/18 19:38 HEAD W/O CONTRAST [CT] Stat - Medication Orders Current Medication Orders: Discontinued Medications Acetaminophen (Tylenol 325mg Tab) 975 mg PO STAT STA Stop: 04/30/18 19:39 Last Admin: 04/30/18 20:14 Dose: 975 mg Sodium Chloride (Sodium Chloride 0.9%) 1,000 mls @ 999 mls/hr IV .Q1H1M STA Stop: 04/30/18 20:38 Last Admin: 04/30/18 20:13 Dose: 999 mls/hr eMAR Start Stop Document 04/30/18 20:13 EQ (Rec: 04/30/18 20:14 [facility] Intravenous Solution Start Date 04/30/18 Start Time 20:14 Metoclopramide HCl (Reglan) 10 mg IVP STAT STA Stop: 04/30/18 19:39 Last Admin: 04/30/18 20:14 Dose: 10 mg IVP Administration Document 04/30/18 20:14 EQ (Rec: 04/30/18 20:14 [facility] Charges for Administration # of IVP Administrations 1 - Scribe Statement The provider has reviewed the documentation as recorded by the Valdemar Burrell Provider Scribe Attestation: All medical record entries made by the Scribe were at my direction and personally dictated by me. I have reviewed the chart and agree that the record accurately reflects my personal performance of the history, physical exam, medical decision making, and the department course for this patient. I have also personally directed, reviewed, and agree with the discharge instructions and disposition. Disposition/Present on Arrival - Present on Arrival Any Indicators Present on Arrival: No History of DVT/PE: No History of Uncontrolled Diabetes: No Urinary Catheter: No (external purick catheter) History of Decub. Ulcer: No History Surgical Site Infection Following: None - Disposition Have Diagnosis and Disposition been Completed?: Yes Diagnosis: Headache Disposition: HOME/ ROUTINE Disposition Time: 01:02 Patient Plan: Discharge Patient Problems: Current Active Problems Problem Status Onset Headache Acute Condition: STABLE Discharge Instructions (ExitCare): Headache, Adult (DC) Additional Instructions: Take meds as prescribed/follow up with your doctor this week Prescriptions: Naproxen [Naprosyn Tab] 375 mg PO BID PRN #[id number] tab PRN Reason: Headache Referrals: Alondra PEREZ,Rosalina Rondon APN [Primary Care Provider] - Follow up with primary
[2018-05-01 05:13] VITALS: BP 139/74; PULSE 80; TEMP 98.6; O2SAT 100
--- NOTE | 2018-05-01 08:29 | CT ---
Date of service: 04/30/2018 PROCEDURE: CT HEAD WITHOUT CONTRAST. HISTORY: headache COMPARISON: 02/15/2018 TECHNIQUE: Axial computed tomography images were obtained through the head/brain without intravenous contrast. Radiation dose: Total exam DLP = 780.61 mGy-cm. This CT exam was performed using one or more of the following dose reduction techniques: Automated exposure control, adjustment of the mA and/or kV according to patient size, and/or use of iterative reconstruction technique. FINDINGS: HEMORRHAGE: No intracranial hemorrhage. BRAIN: No mass effect or edema. No atrophy or chronic microvascular ischemic changes. VENTRICLES: Unremarkable. No hydrocephalus. CALVARIUM: Status post left craniotomy with postoperative changes, stable. PARANASAL SINUSES: Unremarkable as visualized. No significant inflammatory changes. MASTOID AIR CELLS: Unremarkable as visualized. No inflammatory changes. OTHER FINDINGS: None. IMPRESSION: No acute hemorrhage.
== END 2018-05-01 01:20 | disposition home or self-care (01) ==
LOC: ED 17:58
DX: R51 Headache (principal); I25.2 Old myocardial infarction; I11.0 Hypertensive heart disease with heart failure; I50.9 Heart failure, unspecified; I69.351 Hemiplegia and hemiparesis following cerebral infarction affecting right dominant side
CPT/HCPCS: 70450; 96374; 96375; 99285; J1885; J2765; J7030